=== PATIENT | male | born 1945 | race Caucasian/White ===

== ENCOUNTER → 2016-11-12 | Outpatient (CLI) | payer MEDICARE ==
--- NOTE | 2016-11-12 18:59 | PN ---
DATE OF SERVICE: 11/12/2016 71-year-old gentleman who has been [facility] for treatment of obstructive sleep apnea/hypopnea syndrome. Patient using his CPAP equipment every night without any problem like his mask. No snoring with the machine. [place] Sleepiness Scale is 6 which is normal. The patient brought his CPAP unit with him. I checked CPAP unit. CPAP pressure is 8 cm of water, humidity at the level of 6. Leak from the mask is up to 35 liters per minute. Apnea-hypopnea index reading is 2.8, which is normal. Usage is 100% of the time more than 4 hours. I checked the patient's nasal pillow mask and headgear and it looks loose to me. MEDICATIONS: Metformin, Glipizide, pioglitazone, ( ), Januvia, lorazepam, baby aspirin. PHYSICAL EXAMINATION: GENERAL: During physical exam, the patient in no distress. VITAL SIGNS: BP right arm 131/101, HR 84, RR 16, blood pressure left arm is 142/65. Height 5 feet 9-1/4, weight 224. BMI 33. Neck 17-1/2 inches in circumference. Temperature 97.5. HEENT: PERRLA, EOMI. Oropharynx extremely low position of soft palate. NECK: Supple. No JVD. Thyroid is not palpable. LUNGS: Clear to percussion and to auscultation. Good air exchange. No wheezing or rhonchi. HEART: S1, S2 regular. No murmurs, gallops, or rubs. ABDOMEN: Slightly obese. Soft and nontender. Bowel sounds are present. No organomegaly appreciated. EXTREMITIES: No clubbing or cyanosis. MUSIC PROMOTER: Awake, alert, and oriented x3. Cranial nerves 2 to 7 intact. There is no fasciculation or atrophy noted. No focal deficits observed. IMPRESSION: 1. Obstructive sleep apnea/hypopnea syndrome on full control with CPAP at the pressure of 8 cm of water. Patient demonstrated 100% compliance with treatment benefiting from treatment. 2. Patient needs new headgear for nasal pillows. 3. Diabetes mellitus. 4. Hypertension. 5. Obesity; patient lost weight down to 227 pounds. He lost about 20 pounds. 6. Status post nasal surgery about 5 years ago. 7. Status post right knee replacement. PLAN: 1. Patient will continue to use his CPAP therapy every night for the whole night. 2. Continue losing weight. 3. Sleep hygiene with regular time in bed for at least 8 hours. 4. Prescription for all necessary CPAP supplies. Patient needs to replace nasal pillow mask with headgear every 4 months at least. Thank you very much for allowing me to participate in the management of your patient. Sincerely, Matt Kidd MD, PhD, FAASM. Diplomat of [place] [employer], Sleep Medicine Board by [place] [employer] [place] [employer] Art Critic of [facility] [place]
== END | disposition home or self-care (01) ==
LOC: SLEEP 14:33
PROVIDERS: ATTEND Internal Medicine
DX: G47.33 Obstructive sleep apnea (adult) (pediatric) (principal); E11.9 Type 2 diabetes mellitus without complications; I10 Essential (primary) hypertension; E66.9 Obesity, unspecified; Z68.33 Body mass index [BMI] 33.0-33.9, adult; Z98.890 Other specified postprocedural states; Z96.651 Presence of right artificial knee joint; Z79.899 Other long term (current) drug therapy; Z79.84 Long term (current) use of oral hypoglycemic drugs; Z79.82 Long term (current) use of aspirin

== ENCOUNTER → 2017-05-03 | Outpatient (CLI) | payer MEDICARE ==
--- NOTE | 2017-05-03 15:22 | US ---
EXAMINATION TYPE: US carotid duplex BILAT DATE OF EXAM: 05/03/2017 COMPARISON: US 2011, Ct Brain 2009 CLINICAL HISTORY: 71-year-old male R42 Dizziness. TECHNIQUE: Carotid duplex ultrasound examination. Indirect Doppler criteria was utilized. FINDINGS: [place] scale images show mild atherosclerotic changes at the bifurcations. EXAM MEASUREMENTS: RIGHT: Peak Systolic Velocity (PSV) cm/sec ----- Right CCA: 57.2 ----- Right ICA: 47.7 ----- Right ECA: 79.8 ICA/CCA ratio: 0.8 RIGHT: End Diastole cm/sec ----- Right CCA: 0.0 ----- Right ICA: 0.0 ----- Right ECA: 9.9 LEFT: Peak Systolic Velocity (PSV) cm/sec ----- Left CCA: 46.8 ----- Left ICA: 86.0 ----- Left ECA: 67.7 ICA/CCA ratio: 1.8 LEFT: End Diastole cm/sec ----- Left CCA: 0.0 ----- Left ICA: 24.1 ----- Left ECA: 0.0 VERTEBRALS (direction of flow): Right Vertebral: Antegrade Left Vertebral: Antegrade Rhythm: Normal Senior Software Tester notes: Lower flow state and higher resistance waveform is noted in right ICA. IMPRESSION: No hemodynamically significant stenosis appreciated in either internal carotid artery. Criteria for Assigning % of Stenosis / Diameter reduction (Estimation based on the indirect measurements of the internal carotid artery velocities (ICA PSV). 1. Normal (no stenosis)=ICA PSV < 125 cm/s: ratio < 2.0: ICA EDV<40 cm/s. 2. Less than 50% stenosis=ICA PSV < 125 cm/s: ratio < 2.0: ICA EDV<40 cm/s. 3. 50 to 69% stenosis=ICA PSV of 125 to 230 cm/s: ration 2.0 ? 4.0: ICA EDV 40-100 cm/s. 4. Greater than 70% stenosis to near occlusion= ICA PSV > 230 cm/s: ratio > 4.0: ICA EDV > 100 cm/s. 5. Near occlusion= ICA PSV velocities may be low or undetectable: variable ratio and ICA EDV. 6. Total occlusion=unable to detect flow.
== END | disposition home or self-care (01) ==
LOC: RADUSWWP 12:18
PROVIDERS: ATTEND Internal Medicine Hematology & Oncology
DX: R42 Dizziness and giddiness (principal)
CPT/HCPCS: 93880

== ENCOUNTER 2021-12-23 21:29 | Emergency (ER) | payer MEDICARE ==
[2021-12-23 21:40] VITALS: TEMP 98.3
[2021-12-23] MEDS ORDERED: ONDANSETRON 4 MG/2 ML VIAL IVP STA (21:45)
[2021-12-23] MEDS ORDERED: SODIUM CHLORIDE 0.9% 1,000 ML IV STA ×2 (21:45→23:34)
[2021-12-23] MEDS ORDERED: diphenhydrAMINE 50 MG/ML 1 ML VIAL IVP STA (21:45)
--- NOTE | 2021-12-23 21:45 | ED ---
Dizziness HPI - General Chief Complaint: Dizziness Stated Complaint: Dizziness Time Seen by Provider: 12/23/21 21:36 Source: patient, RN notes reviewed, old records reviewed Mode of arrival: EMS Limitations: no limitations, altered mental status, physical limitation - History of Present Illness Initial Comments: This is a 76-year-old male to the emergency department for evaluation of dizziness lightheadedness weakness multiple mental status and not exactly feeling well. Patient was outside doing well right than normal today. He has no headache chest pain shortness of breath but he just feels increasingly weak. She had increase in the dizziness lightheadedness room spinning around at times. Patient felt off-balance MD Complaint: dizziness, lightheadedness, near syncope, difficulty walking -: hour(s) Timing: gradual onset Description: sense of movement, "room spinning", lightheadedness History of Same: Yes History of Trauma: No Severity: moderate Improves With: remaining still, rehydration, rest Worsens With: movement, exertion Associated Symptoms: shortness of breath, weakness - Related Data Home Medications Medication Instructions Recorded Confirmed Pioglitazone [Actos] 30 mg PO DAILY 05/21/16 12/24/21 Quinapril HCl [Accupril] 20 mg PO DAILY 05/21/16 12/24/21 glipiZIDE [Glucotrol] 10 mg PO BID 05/21/16 12/24/21 metFORMIN HCL [Glucophage] 1,000 mg PO BID 05/21/16 12/24/21 sitaGLIPtin [Januvia] 100 mg PO HS 05/21/16 12/24/21 LORazepam [Ativan] 1 mg PO DAILY PRN 05/28/17 12/24/21 FLUoxetine HCL 40 mg PO DAILY 12/23/21 12/24/21 HYDROcodone/APAP 5-325MG [[place] 1 tab PO Q6H PRN 12/23/21 12/24/21 5-325] Previous Rx's Medication Instructions Recorded Meclizine [Antivert] 25 mg PO TID PRN #12 tab 12/24/21 Metoclopramide HCl [Reglan] 10 mg PO Q6HR PRN #15 tablet 12/24/21 Allergies Allergy/AdvReac Type Severity Reaction Status Date / Time No Known Allergies Allergy Verified 12/24/21 11:56 Review of Systems ROS Statement: Those systems with pertinent positive or pertinent negative responses have been documented in the HPI. ROS Other: All systems not noted in ROS Statement are negative. Past Medical History Past Medical History: Diabetes Mellitus, Hypertension Additional Past Medical History / Comment(s): [place] History of Any Multi-Drug Resistant Organisms: None Reported Past Surgical History: Orthopedic Surgery Additional Past Surgical History / Comment(s): Bilateral knee replacement. Right knee replacement was approx 1 year ago. Past Anesthesia/Blood Transfusion Reactions: No Reported Reaction Past Psychological History: Anxiety, Depression Past Alcohol Use History: None Reported Past Drug Use History: None Reported - Past Family History Mother History Unknown: Yes Father History Unknown: Yes General Exam Limitations: no limitations General appearance: alert, in no apparent distress Head exam: Present: atraumatic, normocephalic, normal inspection Eye exam: Present: normal appearance, PERRL, EOMI. Absent: scleral icterus, conjunctival injection, periorbital swelling ENT exam: Present: normal exam, mucous membranes moist Neck exam: Present: normal inspection. Absent: tenderness, meningismus, lymphadenopathy Respiratory exam: Present: normal lung sounds bilaterally. Absent: respiratory distress, wheezes, rales, rhonchi, stridor Cardiovascular Exam: Present: regular rate, normal rhythm, normal heart sounds. Absent: systolic murmur, diastolic murmur, rubs, gallop, clicks GI/Abdominal exam: Present: soft, normal bowel sounds. Absent: distended, tenderness, guarding, rebound, rigid Extremities exam: Present: normal inspection, full ROM, normal capillary refill. Absent: tenderness, pedal edema, joint swelling, calf tenderness Back exam: Present: normal inspection Neurological exam: Present: alert, oriented X3, CN II-XII intact Psychiatric exam: Present: normal affect, normal mood Skin exam: Present: warm, dry, intact, normal color. Absent: rash Course Vital Signs 12/23/21 12/23/21 12/24/21 21:31 22:04 01:20 Temperature 98.3 F Pulse Rate 85 82 Respiratory 20 22 86 H Rate Blood Pressure 145/68 140/65 146/74 O2 Sat by Pulse 96 94 L 95 Oximetry - Reevaluation(s) Reevaluation #1: 12/23/21 Medical record is reviewed Reevaluation #2: 12/23/21 Patient symptoms resolved here in the ER, feeling improved Reevaluation #3: 12/23/21 Patient informed results and questions are answered EKG Findings - EKG Comments: EKG Findings:: EKG is sinus rhythm 89 NE 211 QRS 104 QTc 413 Medical Decision Making - Medical Decision Making 76 male who presents to the emergency department for not feeling well likely dehydration from overwork, states patient's been not acting appropriately lately at times, patient is awake and alert currently acting normal for now. Patient has no findings here in the ER and can be discharged home - Lab Data Result diagrams: 12/23/21 22:06 12/23/21 22:06 Lab Results 12/23/21 12/23/21 12/23/21 Range/Units 22:06 22:06 22:06 WBC 11.6 H (3.8-10.6) k/uL RBC 4.37 (4.30-5.90) m/uL Hgb 12.8 L (13.0-17.5) gm/dL Hct 40.9 (39.0-53.0) % MCV 93.6 (80.0-100.0) fL MCH 29.3 (25.0-35.0) pg MCHC 31.3 (31.0-37.0) g/dL RDW 14.2 (11.5-15.5) % Plt Count 228 (150-450) k/uL MPV 8.1 Neutrophils % 84 % Lymphocytes % 8 % Monocytes % 6 % Eosinophils % 1 % Basophils % 0 % Neutrophils # 9.7 H (1.3-7.7) k/uL Lymphocytes # 0.9 L (1.0-4.8) k/uL Monocytes # 0.6 (0-1.0) k/uL Eosinophils # 0.1 (0-0.7) k/uL Basophils # 0.0 (0-0.2) k/uL Sodium 135 L (137-145) mmol/L Potassium 4.3 (3.5-5.1) mmol/L Chloride 104 (98-107) mmol/L Carbon Dioxide 20 L (22-30) mmol/L Anion Gap 11 mmol/L BUN 17 (9-20) mg/dL Creatinine 0.82 (0.66-1.25) mg/dL Est GFR (CKD-EPI)AfAm >90 (>60 ml/min/1.73 sqM) Est GFR (CKD-EPI)NonAf 85 (>60 ml/min/1.73 sqM) Glucose 202 H (74-99) mg/dL Calcium 9.2 (8.4-10.2) mg/dL Phosphorus 2.9 (2.5-4.5) mg/dL Magnesium 1.7 (1.6-2.3) mg/dL Total Bilirubin 0.3 (0.2-1.3) mg/dL AST 27 (17-59) U/L ALT 23 (4-49) U/L Alkaline Phosphatase 63 (38-126) U/L Troponin I <0.012 (0.000-0.034) ng/mL Total Protein 6.8 (6.3-8.2) g/dL Albumin 4.0 (3.5-5.0) g/dL - Radiology Data Radiology results: report reviewed (CT brain negative for acute disease), image reviewed Disposition Clinical Impression: Dehydration, Weakness Disposition: HOME SELF-CARE Condition: Good Instructions (If sedation given, give patient instructions): Weakness (ED) Is patient prescribed a controlled substance at d/c from ED?: No Referrals: Francesco Lance MD [Primary Care Provider] - 1-2 days Time of Disposition: 23:55
[2021-12-23 22:07] VITALS: PULSE 82
[2021-12-23 22:09] LABS: Basophils % (A) 0 %; Eosinophils # (A) 0.1 k/uL (0-0.7); Eosinophils % (A) 1 %; HCT 40.9 % (39.0-53.0); HGB 12.8 gm/dL (13.0-17.5); Lymphocytes # (A) 0.9 k/uL (1.0-4.8); Lymphocytes % (A) 8 %; MCH 29.3 pg (25.0-35.0); MCHC 31.3 g/dL (31.0-37.0); MCV 93.6 fL (80.0-100.0); Mean Platelet Volume 8.1; Monocytes # (A) 0.6 k/uL (0-1.0); Monocytes % (A) 6 %; Neutrophils # (A) 9.7 k/uL (1.3-7.7); Neutrophils % (A) 84 %; Platelet Count 228 k/uL (150-450); RBC 4.37 m/uL (4.30-5.90); RDW 14.2 % (11.5-15.5); WBC 11.6 k/uL (3.8-10.6)
[2021-12-23 22:31] LABS: Potassium 4.3 mmol/L (3.5-5.1)
[2021-12-23 22:32] LABS: ALT 23 U/L (4-49); AST 27 U/L (17-59); African American GFR (CKD) >90 (>60 ml/min/1.73 sqM); Alkaline Phosphatase 63 U/L (38-126); Anion Gap 11 mmol/L; Blood Urea Nitrogen 17 mg/dL (9-20); Calcium 9.2 mg/dL (8.4-10.2); Carbon Dioxide 20 mmol/L (22-30); Chloride 104 mmol/L (98-107); Glucose 202 mg/dL (74-99); Magnesium 1.7 mg/dL (1.6-2.3); Non-African American GFR(CKD) 85 (>60 ml/min/1.73 sqM); Phosphorus 2.9 mg/dL (2.5-4.5); Sodium 135 mmol/L (137-145); Total Bilirubin 0.3 mg/dL (0.2-1.3); Total Protein 6.8 g/dL (6.3-8.2)
--- NOTE | 2021-12-23 22:55 | CT ---
EXAMINATION TYPE: CT brain wo con DATE OF EXAM: 12/23/2021 COMPARISON: 05/23/2010 HISTORY: weakness and fall. CT DLP: 1123.4 mGycm Automated exposure control for dose reduction was used. There is diffuse cerebral cortical atrophy. There is 1.5 cm old lacunar infarct in the left caudate n ucleus. There is extensive mucosal thickening in the maxillary sinuses. There is mucosal thickening a lso in the ethmoid sinuses. Calvarium is intact. IMPRESSION: Cerebral atrophy. 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 Ethmoid and maxillary sinusitis is increased compared to old exam. Cerebral atrophy is increased comp ared to old exam.
[2021-12-24 01:22] VITALS: BP 146/74; RESP 86
== END 2021-12-24 01:22 | disposition home or self-care (01) ==
LOC: EC 21:29
DX: E86.0 Dehydration (principal); R53.1 Weakness; E11.9 Type 2 diabetes mellitus without complications; I10 Essential (primary) hypertension
CPT/HCPCS: 36415; 93005; 80053; 83735; 84100; 84484; 85025; 70450; 99285; 96374; 96375; 96361; J1200; J2405

== ENCOUNTER 2021-12-24 10:39 | Emergency (ER) | payer MEDICARE ==
[2021-12-24 11:22] VITALS: RESP 14
[2021-12-24] MEDS ORDERED: METOCLOPRAMIDE 5 MG/ML 2 ML VIAL IVP STA (11:48)
[2021-12-24] MEDS ORDERED: MECLIZINE 12.5 MG TAB PO STA (11:48)
--- NOTE | 2021-12-24 11:52 | ED ---
General Adult HPI - General Chief complaint: Weakness Stated complaint: Revisit/Dizziness Time Seen by Provider: 12/24/21 11:15 Source: patient, family, RN notes reviewed Mode of arrival: ambulatory Limitations: no limitations - History of Present Illness Initial comments: Patient is a pleasant 76-year-old male presenting to the emergency department with concerns with dizziness. Patient had similar symptoms yesterday afternoon. Patient came to the emergency department yesterday. Patient does not believe he was given medicines however did feel better and went home. Patient woke up this morning and when he got out of bed had similar symptoms. Patient felt dizzy, described like a spinning type sensation. Patient did fall down. No injury. Patient currently is symptom-free while lying in bed. Patient did not have symptoms in route to the hospital. No confusion. No speech problems. Other than this episode there is been no history of balance problems. No extremity weakness. No visual changes. - Related Data Home Medications Medication Instructions Recorded Confirmed Pioglitazone [Actos] 30 mg PO DAILY 05/21/16 12/24/21 Quinapril HCl [Accupril] 20 mg PO DAILY 05/21/16 12/24/21 glipiZIDE [Glucotrol] 10 mg PO BID 05/21/16 12/24/21 metFORMIN HCL [Glucophage] 1,000 mg PO BID 05/21/16 12/24/21 sitaGLIPtin [Januvia] 100 mg PO HS 05/21/16 12/24/21 LORazepam [Ativan] 1 mg PO DAILY PRN 05/28/17 12/24/21 FLUoxetine HCL 40 mg PO DAILY 12/23/21 12/24/21 HYDROcodone/APAP 5-325MG [[place] 1 tab PO Q6H PRN 12/23/21 12/24/21 5-325] Previous Rx's Medication Instructions Recorded Meclizine [Antivert] 25 mg PO TID PRN #12 tab 12/24/21 Metoclopramide HCl [Reglan] 10 mg PO Q6HR PRN #15 tablet 12/24/21 Allergies Allergy/AdvReac Type Severity Reaction Status Date / Time No Known Allergies Allergy Verified 12/24/21 11:56 Review of Systems ROS Statement: Those systems with pertinent positive or pertinent negative responses have been documented in the HPI. ROS Other: All systems not noted in ROS Statement are negative. Constitutional: Denies: fever Eyes: Denies: eye pain ENT: Denies: ear pain Respiratory: Denies: cough Cardiovascular: Denies: chest pain Endocrine: Denies: fatigue Gastrointestinal: Denies: abdominal pain Genitourinary: Denies: dysuria Musculoskeletal: Denies: back pain Skin: Denies: rash Neurological: Reports: as per HPI, vertigo. Denies: headache, weakness, numbness, paresthesias, confusion Past Medical History Past Medical History: Diabetes Mellitus, Hypertension Additional Past Medical History / Comment(s): [place] History of Any Multi-Drug Resistant Organisms: None Reported Past Surgical History: Orthopedic Surgery Additional Past Surgical History / Comment(s): Bilateral knee replacement. Right knee replacement was approx 1 year ago. Past Anesthesia/Blood Transfusion Reactions: No Reported Reaction Past Psychological History: Anxiety, Depression Smoking Status: Never smoker Past Alcohol Use History: None Reported Past Drug Use History: None Reported - Past Family History Mother History Unknown: Yes Father History Unknown: Yes General Exam Limitations: no limitations General appearance: alert, in no apparent distress Head exam: Present: atraumatic, normocephalic Eye exam: Present: normal appearance, PERRL, EOMI ENT exam: Present: normal oropharynx Neck exam: Present: normal inspection. Absent: tenderness Respiratory exam: Present: normal lung sounds bilaterally Cardiovascular Exam: Present: regular rate, normal rhythm GI/Abdominal exam: Present: soft. Absent: tenderness Extremities exam: Present: normal inspection, full ROM. Absent: tenderness Neurological exam: Present: alert, CN II-XII intact. Absent: motor sensory deficit Expanded Neurological exam: Present: protecting the airway Patient oriented to: Present: person, place, time Speech: Present: fluid speech Cranial nerves: EOM's Intact: Normal, Facial Sensation: Normal Cerebellar function: Finger to Nose: Normal Sensory exam: Upper Extremity Light Touch: Normal, Lower Extremity Light Touch: Normal Motor strength exam: RUE: 5, LUE: 5, RLE: 5, LLE: 5 Eye Response: (4) open spontaneously Motor Response: (6) obeys commands Verbal Response: (5) oriented Psychiatric exam: Present: normal affect, normal mood Skin exam: Present: normal color Course Vital Signs 12/24/21 12/24/21 12/24/21 10:43 11:14 11:22 Temperature 98.3 F 98.0 F Pulse Rate 78 86 84 Respiratory 20 14 14 Rate Blood Pressure 133/64 134/66 134/66 O2 Sat by Pulse 96 97 96 Oximetry 12/24/21 12/24/21 12/24/21 12:10 14:37 14:41 Temperature 98 F Pulse Rate 78 82 Respiratory 14 14 Rate Blood Pressure 159/72 136/66 140/70 O2 Sat by Pulse 97 93 L Oximetry 12/24/21 14:44 Temperature Pulse Rate Respiratory Rate Blood Pressure 139/67 O2 Sat by Pulse Oximetry EKG Findings - EKG Comments: EKG Findings:: Sinus rhythm with rate of 80. For screening AV block with a SC of 223. QRS 95. QT 366. QTc 41. Normal axis. Incomplete right bundle branch block. No acute ST change. Medical Decision Making - Medical Decision Making Patient reevaluated and feeling much better. Patient was able to get up and and really without difficulty. Patient and family updated on results and need for follow-up. - Lab Data Result diagrams: 12/24/21 11:56 12/24/21 11:56 Lab Results 12/24/21 12/24/21 12/24/21 Range/Units 11:56 11:56 11:56 WBC 7.5 (3.8-10.6) k/uL RBC 4.58 (4.30-5.90) m/uL Hgb 13.3 (13.0-17.5) gm/dL Hct 43.4 (39.0-53.0) % MCV 94.7 (80.0-100.0) fL MCH 29.1 (25.0-35.0) pg MCHC 30.7 L (31.0-37.0) g/dL RDW 14.4 (11.5-15.5) % Plt Count 247 (150-450) k/uL MPV 8.1 Neutrophils % 71 % Lymphocytes % 19 % Monocytes % 7 % Eosinophils % 2 % Basophils % 1 % Neutrophils # 5.3 (1.3-7.7) k/uL Lymphocytes # 1.4 (1.0-4.8) k/uL Monocytes # 0.5 (0-1.0) k/uL Eosinophils # 0.1 (0-0.7) k/uL Basophils # 0.0 (0-0.2) k/uL PT 10.2 (9.0-12.0) sec INR 0.9 (<1.2) APTT 22.1 (22.0-30.0) sec Sodium 140 (137-145) mmol/L Potassium 5.1 (3.5-5.1) mmol/L Chloride 105 (98-107) mmol/L Carbon Dioxide 26 (22-30) mmol/L Anion Gap 9 mmol/L BUN 15 (9-20) mg/dL Creatinine 0.97 (0.66-1.25) mg/dL Est GFR (CKD-EPI)AfAm 87 (>60 ml/min/1.73 sqM) Est GFR (CKD-EPI)NonAf 75 (>60 ml/min/1.73 sqM) Glucose 202 H (74-99) mg/dL Calcium 9.1 (8.4-10.2) mg/dL Total Bilirubin 0.3 (0.2-1.3) mg/dL AST 27 (17-59) U/L ALT 23 (4-49) U/L Alkaline Phosphatase 56 (38-126) U/L Total Protein 6.8 (6.3-8.2) g/dL Albumin 4.0 (3.5-5.0) g/dL - Radiology Data Radiology results: report reviewed (Computed tomography scan angios of the brain and neck reveal no acute abnormality), image reviewed (Chest x-ray shows no acute process) Disposition Clinical Impression: Vertigo Disposition: HOME SELF-CARE Condition: Stable Instructions (If sedation given, give patient instructions): Vertigo (ED) Additional Instructions: Please follow-up with primary care physician in the next day or 2 for recheck. Prescription for medications has been sent here pharmacy. Please follow-up also with neurology and ENT, number provided. Return for increased dizziness, falling, weakness or confusion, worsening or change in symptoms or other concerns. Prescriptions: Meclizine [Antivert] 25 mg PO TID PRN #12 tab PRN Reason: dizziness Metoclopramide HCl [Reglan] 10 mg PO Q6HR PRN #15 tablet PRN Reason: Nausea Is patient prescribed a controlled substance at d/c from ED?: No Referrals: Francesco Lance MD [Primary Care Provider] - 1-2 days Time of Disposition: 15:00
[2021-12-24 12:11] VITALS: TEMP 98
[2021-12-24 12:12] LABS: Basophils % (A) 1 %; Eosinophils # (A) 0.1 k/uL (0-0.7); Eosinophils % (A) 2 %; HCT 43.4 % (39.0-53.0); HGB 13.3 gm/dL (13.0-17.5); Lymphocytes # (A) 1.4 k/uL (1.0-4.8); Lymphocytes % (A) 19 %; MCH 29.1 pg (25.0-35.0); MCHC 30.7 g/dL (31.0-37.0); MCV 94.7 fL (80.0-100.0); Mean Platelet Volume 8.1; Monocytes # (A) 0.5 k/uL (0-1.0); Monocytes % (A) 7 %; Neutrophils # (A) 5.3 k/uL (1.3-7.7); Neutrophils % (A) 71 %; Platelet Count 247 k/uL (150-450); RBC 4.58 m/uL (4.30-5.90); RDW 14.4 % (11.5-15.5); WBC 7.5 k/uL (3.8-10.6)
[2021-12-24 12:27] LABS: Calcium 9.1 mg/dL (8.4-10.2); Potassium 5.1 mmol/L (3.5-5.1); Total Bilirubin 0.3 mg/dL (0.2-1.3); Total Protein 6.8 g/dL (6.3-8.2)
[2021-12-24 12:29] LABS: INR 0.9 (<1.2); Partial Thromboplastin Time 22.1 sec (22.0-30.0); Prothrombin Time 10.2 sec (9.0-12.0)
--- NOTE | 2021-12-24 13:00 | XR ---
EXAMINATION TYPE: XR chest 2V DATE OF EXAM: 12/24/2021 COMPARISON: 05/28/2010 TECHNIQUE: PA and lateral views submitted. HISTORY: Weakness FINDINGS: The lungs are clear and there is no pneumothorax, pleural effusion, or focal pneumonia. Diffuse ost eopenia and arthropathy of the shoulders. Heart prominent sized. Atherosclerotic change aorta. No ove rt failure. Hyperinflation suggests COPD. Hypertrophic and degenerative change of the spine. IMPRESSION: 1. No acute process. Correlate for COPD.
--- NOTE | 2021-12-24 13:24 | CT ---
EXAMINATION TYPE: CT angio head neck DATE OF EXAM: 12/24/2021 HISTORY: Dizziness COMPARISON: CT DLP: 916.4 mGycm. Automated Exposure Control for Dose Reduction was Utilized. TECHNIQUE: CTA scan of the neck is performed with IV Contrast, patient injected with 65 mL of Isovue 370, axial images are obtained, coronal and sagittal reformatted images are reviewed. Three-D recons tructed images are created on an independent workstation and reviewed. Source images are reviewed. FINDINGS: Carotid/Vascular Structures: There is a three-vessel arch. Vertebral arteries are codominant. Mild at heromatous plaque is at the carotid bifurcations. No significant flow-limiting stenosis is evident. S ome stenosis of the origin of the left external carotid artery is not excluded. Internal carotid tana karoline are patent to the skull base. Cervical of [place]: Vertebral basilar system appears normal. Posterior cerebral vasculature is unrema rkable. The right A1 segment is aplastic. Left A1 segment is normal. Anterior communicating artery is patent. A 2 segments are normal. Middle cerebral artery branches are unremarkable. Right posterior c ommunicating artery is patent. Left posterior communicating artery is not identified. IMPRESSION: 1. No flow-limiting stenosis bilateral carotid bifurcations. 2. Normal variation [place] NASCET criteria was used in interpretation of this exam?
[2021-12-24 14:43] VITALS: PULSE 82
[2021-12-24 14:59] VITALS: BP 137/68
== END 2021-12-24 16:18 | disposition home or self-care (01) ==
LOC: EC 10:39
DX: R42 Dizziness and giddiness (principal); E11.9 Type 2 diabetes mellitus without complications; I10 Essential (primary) hypertension
CPT/HCPCS: 36415; 80053; 85025; 85610; 85730; 71046; 70496; 70498; 99285; 96374; J2765; Q9967

== ENCOUNTER → 2022-04-17 | Outpatient (CLI) | payer MEDICARE ==
--- NOTE | 2022-04-17 13:07 | XR ---
EXAMINATION TYPE: XR clavicle RT DATE OF EXAM: 04/17/2022 1:00 PM INDICATION: Patient age:Male; 76 years old; Reason for study: M25.5 PAIN IN RIGHT CLAVICLE; PHH. COMPARISON: Chest radiograph 12/24/2021. TECHNIQUE: AP and cephalic tilt views were obtained of the right clavicle. FINDINGS: Nondisplaced oblique fracture of the proximal clavicle. Hypertrophic changes of the AC joint. No disl ocation. Visualized lung is clear. IMPRESSION: Acute nondisplaced fracture of the proximal right clavicle.
== END | disposition home or self-care (01) ==
LOC: RADXRMAIN 12:42
PROVIDERS: ATTEND Internal Medicine
DX: S42.034A Nondisplaced fracture of lateral end of right clavicle, initial encounter for closed fracture (principal); X58.XXXA Exposure to other specified factors, initial encounter

== ENCOUNTER 2022-04-21 15:13 | Observation (INO) | payer MEDICARE ==
[2022-04-21] MEDS ORDERED: LORazepam 2 MG/ML INJ IV STA ×2 (17:19→22:04)
[2022-04-21] MEDS ORDERED: SODIUM CHLORIDE 0.9% 500 ML 500 ML IV STA (17:19)
[2022-04-21 17:52] LABS: Basophils % (A) 0 %; Eosinophils # (A) 0.1 k/uL (0-0.7); Eosinophils % (A) 1 %; HCT 40.8 % (39.0-53.0); HGB 13.8 gm/dL (13.0-17.5); Lymphocytes # (A) 1.4 k/uL (1.0-4.8); Lymphocytes % (A) 20 %; MCH 29.6 pg (25.0-35.0); MCHC 33.8 g/dL (31.0-37.0); MCV 87.6 fL (80.0-100.0); Mean Platelet Volume 8.7; Monocytes # (A) 0.5 k/uL (0-1.0); Monocytes % (A) 7 %; Neutrophils # (A) 4.6 k/uL (1.3-7.7); Neutrophils % (A) 69 %; Platelet Count 279 k/uL (150-450); RBC 4.65 m/uL (4.30-5.90); RDW 14.1 % (11.5-15.5); WBC 6.7 k/uL (3.8-10.6)
[2022-04-21 18:06] LABS: African American GFR (CKD) >90 (>60 ml/min/1.73 sqM); Alcohol <10 mg/dL; Anion Gap 15 mmol/L; Blood Urea Nitrogen 20 mg/dL (9-20); Calcium 9.7 mg/dL (8.4-10.2); Carbon Dioxide 18 mmol/L (22-30); Chloride 103 mmol/L (98-107); Glucose 136 mg/dL (74-99); Non-African American GFR(CKD) >90 (>60 ml/min/1.73 sqM); Potassium 4.3 mmol/L (3.5-5.1); Sodium 136 mmol/L (137-145)
--- NOTE | 2022-04-21 18:26 | ED ---
General Adult HPI - General Chief complaint: Psychiatric Symptoms Stated complaint: Mental Health Time Seen by Provider: 04/21/22 16:49 Source: patient, RN notes reviewed, old records reviewed Mode of arrival: ambulatory Limitations: no limitations - History of Present Illness Initial comments: Patient is a 76-year-old male with past history remarkable for diabetes, hypertension, anxiety who presents emergency Department after he brought in by his for mental health evaluation. He has required admission in the past. Patient states he wants to admit himself to 3 [address]. and hurt himself. He is concerned he may hurt himself. Denies homicidal ideations, attempts, plans. Denies any suicidal plans or attempts. Has had thoughts. Denies hallucina tions. Has been taking increased numbers of his Ativan. His normal 3 month supply of 1mg tabs Ativan is almost gone after 2-1/2 months. Denies any large increases but does endorse taking 1 or 2 extra tablets a day occasionally. States it does help but he doesn't to be more lately. Denies any worsening stressors. His no other acute complaints at this time. Does have a recent fall with a collarbone injury. Is on pain medications for that. Denies any overdose or pain meds. Has no other acute complaints at this time. Denies drinking or drug use. Presents for further evaluation and mental health evaluation. - Related Data Home Medications Medication Instructions Recorded Confirmed Pioglitazone [Actos] 30 mg PO DAILY 05/21/16 04/21/22 Quinapril HCl [Accupril] 20 mg PO HS 05/21/16 04/21/22 metFORMIN HCL [Glucophage] 1,000 mg PO BID 05/21/16 04/21/22 sitaGLIPtin [Januvia] 100 mg PO HS 05/21/16 04/21/22 LORazepam [Ativan] 1 dose PO ONCE PRN 05/28/17 04/21/22 FLUoxetine HCL 40 mg PO DAILY 12/23/21 04/21/22 HYDROcodone/APAP 5-325MG [[place] 1 tab PO Q6H PRN 12/23/21 04/21/22 5-325] ALPRAZolam [Xanax] 0.5 mg PO Q6H PRN 04/21/22 04/21/22 Albuterol Inhaler [Ventolin Hfa 1 - 2 puff INHALATION RT-Q6H PRN 04/21/22 04/21/22 Inhaler] glipiZIDE XL [Glucotrol Xl] 10 mg PO BID 04/21/22 04/21/22 Allergies Allergy/AdvReac Type Severity Reaction Status Date / Time No Known Allergies Allergy Verified 04/21/22 20:10 Review of Systems ROS Statement: Those systems with pertinent positive or pertinent negative responses have been documented in the HPI. Review of Systems: CONST: Denies fever EYES: Denies blurry vision ENT: Denies nasal congestion C/V: Denies Chest pain RESP: Denies shortness of breath GI: Denies abdominal pain : Denies dysuria SKIN: Denies rash. MSK: Denies joint pain. NEURO: Denies headache PSYCH: Denies homicidal ideations/plans/attempts. Denies visual or auditory hallucinations. He endorses suicidal ideations. Denies plans or attempts. ROS Other: All systems not noted in ROS Statement are negative. Past Medical History Past Medical History: Diabetes Mellitus, Hypertension Additional Past Medical History / Comment(s): [facility] History of Any Multi-Drug Resistant Organisms: None Reported Past Surgical History: Orthopedic Surgery Additional Past Surgical History / Comment(s): Bilateral knee replacement. Right knee replacement was approx 1 year ago. Past Anesthesia/Blood Transfusion Reactions: No Reported Reaction Past Psychological History: Anxiety, Depression Smoking Status: Former smoker Past Alcohol Use History: None Reported Past Drug Use History: None Reported - Past Family History Mother History Unknown: Yes Father History Unknown: Yes General Exam - General Exam Comments Initial Comments: General: Appears anxious. HEAD: Normal with no signs of head trauma. EYES: PERRLA, EOMI, conjunctiva normal, no discharge. Pupils 2 mm and equal bilaterally. ENT: Hearing grossly intact, normal oropharynx. RESPIRATORY: Clear breath sounds bilaterally. No wheezes, rales, or rhonchi. C/V: Regular rate and rhythm. S1 and S2 auscultated, no edema, peripheral pulses 2+ and intact throughout ABD: Abd is soft, nontender, nondistended EXT: Normal range of motion, no obvious deformity SKIN: Bruising over the right collarbone where there is a known clavicle fracture. NEURO: Alert and oriented 4. No focal deficits. Limitations: no limitations Course Vital Signs 04/21/22 16:31 Temperature 98 F Pulse Rate 92 Respiratory 18 Rate Blood Pressure 158/84 O2 Sat by Pulse 96 Oximetry Medical Decision Making - Medical Decision Making Based on the patient's presentation and physical exam, I do believe he requires psychiatric evaluation. He was placed in green scrubs. Suicide precautions were placed. Sitter was ordered. We will obtain basic screening laboratory studies with his history of diabetes. This includes a screening EKG. He was in agreement this plan. He will be given a small fluid bolus as well as IV Ativan. Patient was in agreement this plan. Vital signs within normal limits. EKG shows no signs of acute ischemia. Laboratory studies are remarkable for a slightly decreased, no exudates in which is likely secondary to hyperventilation, as he is anxious revealing critically bedside. No signs of DKA. Patient is minimally hyperglycemic 136. Alcohol is undetectable. UDS is pending. At this time patient is medically cleared for evaluation by psychiatry. Di sposition is pending psychiatric evaluation.Psych evaluated the patient. Determined that he does meet inpatient criteria. However patient did test positive for Covid. Therefore patient will be admitted to medicine observation and have psych consulted. Sitter was ordered. Suicide precautions were ordered. After the patient and was in agreement this plan. Dr. Ramirezs was consulted. I spoke with the admitting physician, observation on-call Dr. Giron who accepted the patient. Patient was admitted in stable condition. All home medications were ordered. - Lab Data Result diagrams: 04/21/22 17:45 04/21/22 17:45 Lab Results 04/21/22 04/21/22 04/21/22 Range/Units 17:45 17:45 21:24 WBC 6.7 (3.8-10.6) k/uL RBC 4.65 (4.30-5.90) m/uL Hgb 13.8 (13.0-17.5) gm/dL Hct 40.8 (39.0-53.0) % MCV 87.6 (80.0-100.0) fL MCH 29.6 (25.0-35.0) pg MCHC 33.8 (31.0-37.0) g/dL RDW 14.1 (11.5-15.5) % Plt Count 279 (150-450) k/uL MPV 8.7 Neutrophils % 69 % Lymphocytes % 20 % Monocytes % 7 % Eosinophils % 1 % Basophils % 0 % Neutrophils # 4.6 (1.3-7.7) k/uL Lymphocytes # 1.4 (1.0-4.8) k/uL Monocytes # 0.5 (0-1.0) k/uL Eosinophils # 0.1 (0-0.7) k/uL Basophils # 0.0 (0-0.2) k/uL Sodium 136 L (137-145) mmol/L Potassium 4.3 (3.5-5.1) mmol/L Chloride 103 (98-107) mmol/L Carbon Dioxide 18 L (22-30) mmol/L Anion Gap 15 mmol/L BUN 20 (9-20) mg/dL Creatinine 0.69 (0.66-1.25) mg/dL Est GFR (CKD-EPI)AfAm >90 (>60 ml/min/1.73 sqM) Est GFR (CKD-EPI)NonAf >90 (>60 ml/min/1.73 sqM) Glucose 136 H (74-99) mg/dL Calcium 9.7 (8.4-10.2) mg/dL Serum Alcohol <10 mg/dL Coronavirus (PCR) Detected A (Not Detectd) - EKG Data -: EKG Interpreted by Me EKG Comments: 12-lead Electrocardiogram Interpretation Note EKG was reviewed and interpreted by myself. 12-lead ECG performed at 1745 is interpreted by me as revealing normal sinus rhythm at a rate of 81 beats per minute. [place] is normal. CA interval is 197 ms, QRS durations 100 ms, QTc is 428 ms.. There were no ST or T wave abnormalities to suggest myocardial ischemia or injury. R wave progression across the precordium was satisfactory. By my interpretation this EKG is non-diagnostic for acute ischemia. Disposition Clinical Impression: COVID-19, Suicidal behavior, Encounter for psychiatric assessment Disposition: ADMITTED IP TO THIS HOSP Condition: Stable Referrals: Francesco Lance MD [Primary Care Provider] - 1-2 days Time of Disposition: 22:50
[2022-04-21] MEDS ORDERED: NALOXONE 0.4 MG/ML 1 ML VIAL IV PRN (23:18)
[2022-04-21] MEDS: HYDROcodone/APAP 5-325MG 1 EACH TAB PO PRN (23:22)
[2022-04-21] MEDS: ALPRAZolam 0.5 MG TAB PO PRN (23:22)
[2022-04-22] MEDS ORDERED: ALBUTEROL HFA INHALER INHALATION PRN (02:00)
--- NOTE | 2022-04-22 04:33 | P.HPIM ---
History of Present Illness H&P Date: 04/22/22 The patient is a 76-year-old male with a PMH of type II DM and asthma who presented to the emergency room with complaints of depression with suicidal ideation. The patient reports that he has a history of depression and was planning on shooting himself due to worsening suicidal ideation. He denies any specific triggers and his life. Reports a recent fall and clavicular injury as a result. Does report pain with specific movements of the right upper extremity. Denies any additional discomfort. Denies chest discomfort, shortness of breath, nausea, vomiting, abdominal pain, diarrhea. In the emergency room, the patient did test positive for coronavirus. The patient denied cough, fever, chills, chest pain, shortness of breath. Review of systems: Pertinent positives and negatives as discussed in HPI, a complete review of systems was performed and all other systems are negative. Physical examination: General: non toxic, no distress, appears at stated age, overweight Derm: no unusual rashes/lesions, warm Head: atraumatic, normocephalic, symmetric Eyes: EOMI, no lid lag, anicteric sclera, pupils equal round reactive to light ENT: Nose and ears atraumatic Neck: No cervical lymphadenopathy, trachea midline, supple Mouth: no lip lesion, mucus membranes moist Cardiovascular: S1S2 reg, no murmur, positive dorsalis pedis pulse bilateral, no edema Lungs: CTA bilateral, no rhonchi, no rales, no accessory muscle use Abdominal: soft, nontender to palpation, no guarding Ext: Right clavicular tenderness with minimal limitation to right upper extremity range of motion, muscle strength 5 out of 5 in all 4 extremities grossly, no gross muscle atrophy, no contractures, Neuro: CN II-XI grossly intact, no gross focal neuro deficits Psych: Alert, oriented, appropriate affect Assessment/plan Coronavirus testing positive, patient is symptomatic -Hold off on any intervention at this time as likely incidental finding Depression with suicidal ideation -Psychiatry consult -Suicide precautions Chronic conditions: Type II DM, asthma -Hold oral hypoglycemics -Continue with home medications -Insulin sliding scale DVT prophylaxis -Heparin subq The patient is admitted with an anticipated less than 2 midnight stay for evaluation of depression CODE STATUS: Full Code Discussed with: Patient Anticipated discharge date: in am Anticipated discharge place: Home Past Medical History Past Medical History: Diabetes Mellitus, Hypertension Additional Past Medical History / Comment(s): [facility] History of Any Multi-Drug Resistant Organisms: None Reported Past Surgical History: Orthopedic Surgery Additional Past Surgical History / Comment(s): Bilateral knee replacement. Right knee replacement was approx 1 year ago. Past Anesthesia/Blood Transfusion Reactions: No Reported Reaction Past Psychological History: Anxiety, Depression Smoking Status: Former smoker Past Alcohol Use History: None Reported Past Drug Use History: None Reported - Past Family History Mother History Unknown: Yes Father History Unknown: Yes Family Medical History: Cancer Medications and Allergies Home Medications Medication Instructions Recorded Confirmed Type Pioglitazone [Actos] 30 mg PO DAILY 05/21/16 04/21/22 History Quinapril HCl [Accupril] 20 mg PO HS 05/21/16 04/21/22 History metFORMIN HCL [Glucophage] 1,000 mg PO BID 05/21/16 04/21/22 History sitaGLIPtin [Januvia] 100 mg PO HS 05/21/16 04/21/22 History LORazepam [Ativan] 1 dose PO ONCE PRN 05/28/17 04/21/22 History FLUoxetine HCL 40 mg PO DAILY 12/23/21 04/21/22 History HYDROcodone/APAP 5-325MG [[place] 1 tab PO Q6H PRN 12/23/21 04/21/22 History 5-325] ALPRAZolam [Xanax] 0.5 mg PO Q6H PRN 04/21/22 04/21/22 History Albuterol Inhaler [Ventolin Hfa 1 - 2 puff INHALATION RT-Q6H PRN 04/21/22 04/21/22 History Inhaler] glipiZIDE XL [Glucotrol Xl] 10 mg PO BID 04/21/22 04/21/22 History Allergies Allergy/AdvReac Type Severity Reaction Status Date / Time No Known Allergies Allergy Verified 04/21/22 20:10 Physical Exam Vitals: Vital Signs Temp Pulse Resp BP Pulse Ox 04/21/22 16:31 98 F 92 18 158/84 96 Intake and Output 04/21/22 04/21/22 04/22/22 14:59 22:59 06:59 Other: Weight 99.79 kg Results CBC & Chem 7: 04/21/22 17:45 04/21/22 17:45 Labs: Abnormal Lab Results - Last 24 Hours (Table) 04/21/22 04/21/22 Range/Units 17:45 21:24 Sodium 136 L (137-145) mmol/L Carbon Dioxide 18 L (22-30) mmol/L Glucose 136 H (74-99) mg/dL Coronavirus (PCR) Detected A (Not Detectd)
[2022-04-22 06:06] LABS: Basophils % (A) 0 %; Eosinophils # (A) 0.2 k/uL (0-0.7); Eosinophils % (A) 2 %; HCT 40.6 % (39.0-53.0); HGB 13.1 gm/dL (13.0-17.5); Lymphocytes # (A) 1.4 k/uL (1.0-4.8); Lymphocytes % (A) 22 %; MCH 29.1 pg (25.0-35.0); MCHC 32.2 g/dL (31.0-37.0); MCV 90.3 fL (80.0-100.0); Mean Platelet Volume 8.9; Monocytes # (A) 0.8 k/uL (0-1.0); Monocytes % (A) 12 %; Neutrophils # (A) 3.9 k/uL (1.3-7.7); Neutrophils % (A) 61 %; Platelet Count 263 k/uL (150-450); RBC 4.49 m/uL (4.30-5.90); RDW 14.1 % (11.5-15.5); WBC 6.5 k/uL (3.8-10.6)
[2022-04-22 06:07] LABS: African American GFR (CKD) >90 (>60 ml/min/1.73 sqM); Anion Gap 11 mmol/L; Blood Urea Nitrogen 19 mg/dL (9-20); Calcium 8.9 mg/dL (8.4-10.2); Carbon Dioxide 22 mmol/L (22-30); Chloride 103 mmol/L (98-107); Glucose 137 mg/dL (74-99); Non-African American GFR(CKD) >90 (>60 ml/min/1.73 sqM); Potassium 4.3 mmol/L (3.5-5.1); Sodium 136 mmol/L (137-145)
[2022-04-22 07:28] LABS: Glucose,Whole Blood 128 mg/dL (70-110)
[2022-04-22] MEDS: INSULIN ASPART (NovoLOG) 100 UNIT/ML VIAL SQ SCH ×4 (08:07→20:35)
[2022-04-22] MEDS: ALPRAZolam 0.5 MG TAB PO PRN ×2 (08:12→13:27)
[2022-04-22] MEDS: HEPARIN SODIUM,PORCINE/PF 5,000 UNIT/0.5 ML SYRINGE SQ SCH ×2 (08:13→20:34)
[2022-04-22 08:45] LABS: Amphetamine Screen,Urine Not Detected (NotDetected); Barbiturate Screen,Urine Not Detected (NotDetected); Benzodiazepines Screen,Urine Detected (NotDetected); Cocaine Screen,Urine Not Detected (NotDetected); Methadone Screen, Urine Not Detected (NotDetected); Opiate Screen,Urine Detected (NotDetected); Oxycodone Screen, Urine Not Detected (NotDetected); Phencyclidine Screen,Urine Not Detected (NotDetected); Tricyclic Antidepressant,Urine Not Detected (NotDetected); Urn Cannabinoid Scrn Not Detected (NotDetected)
[2022-04-22] MEDS ORDERED: PIOGLITAZONE 30 MG TAB PO SCH (09:00)
[2022-04-22] MEDS ORDERED: glipiZIDE 10 MG TAB PO SCH (09:00)
[2022-04-22] MEDS ORDERED: metFORMIN 500 MG TAB PO SCH (09:00)
[2022-04-22] MEDS ORDERED: FLUoxetine HCL 20 MG CAP PO SCH (09:00)
[2022-04-22 12:38] LABS: Glucose,Whole Blood 183 mg/dL (70-110)
--- NOTE | 2022-04-22 12:54 | P.PN ---
Progress Note - Text Progress Note Date: 04/22/22 Hospitalist Interval Note Patient seen and examined at bedside. He denies any active suicidal ideations. Has a sitter at bedside. Patient denies any respiratory symptoms. Pending psychiatry evaluation. Vital signs reviewed General: non toxic, no distress, appears at stated age Derm: warm, dry Head: atraumatic, normocephalic, symmetric Eyes: EOMI, no lid lag, anicteric sclera Mouth: no lip lesion, mucus membranes moist Cardiovascular: S1S2 reg, no murmur, positive posterior tibial pulse bilateral, Lungs: CTA bilateral, no rhonchi, no rales , no accessory muscle use Abdominal: soft, nontender to palpation, no guarding, no appreciable organomega ly Ext: no gross muscle atrophy, no edema, no contractures Neuro: CN II-XI grossly intact, no focal neuro deficits Psych: Alert, oriented, appropriate affect Assessment/Plan: Asymptomatic COVID-19 infection Depression with suicidal ideation Type 2 diabetes Asthma -Pending psychiatry evaluation This is an update note for patient , for full note see 04/22/22 at 1:16. There is no charge associated with this note.
[2022-04-22] MEDS: HYDROcodone/APAP 5-325MG 1 EACH TAB PO PRN ×2 (13:29→21:02)
[2022-04-22] MEDS ORDERED: FLUoxetine HCL 20 MG CAP PO STA (15:01)
[2022-04-22] MEDS ORDERED: busPIRone HCl 10 MG TAB PO PRN (15:10)
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
[2022-04-22 17:03] LABS: Glucose,Whole Blood 127 mg/dL (70-110)
[2022-04-22 19:49] VITALS: RESP 17
[2022-04-22 20:08] LABS: Glucose,Whole Blood 160 mg/dL (70-110)
[2022-04-22] MEDS ORDERED: LINAGLIPTIN 5 MG TABLET PO SCH (21:00)
[2022-04-22] MEDS ORDERED: lisinopriL 20 MG TAB PO SCH (21:00)
[2022-04-22] MEDS ORDERED: MIRTAZAPINE 15 MG TAB PO SCH (21:00)
[2022-04-23 06:52] LABS: Glucose,Whole Blood 116 mg/dL (70-110)
[2022-04-23] MEDS: INSULIN ASPART (NovoLOG) 100 UNIT/ML VIAL SQ SCH ×2 (07:08→12:10)
[2022-04-23 07:11] VITALS: PULSE 69
[2022-04-23] MEDS: HYDROcodone/APAP 5-325MG 1 EACH TAB PO PRN ×2 (08:13→13:45)
[2022-04-23] MEDS: HEPARIN SODIUM,PORCINE/PF 5,000 UNIT/0.5 ML SYRINGE SQ SCH (08:14)
[2022-04-23] MEDS ORDERED: FLUoxetine HCL 20 MG CAP PO SCH (09:00)
[2022-04-23 11:09] LABS: Glucose,Whole Blood 178 mg/dL (70-110)
--- NOTE | 2022-04-23 12:05 | P.PN ---
Progress Note - Text Progress Note Date: 04/23/22 Interval History: Patient was seen today for psychiatric follow up. Patient was seen talking to his over the phone and had the sitter beside him. Patient claims that he is doing better today. He claims that he does have mild anxiety from being in the hospital and states that he wants to go home to his . He states that he did not have any problems asleep last night and slept throughout the night. He claims that he feels medications have been helping him. We spoke about outpatie nt services and also follow-up which patient was agreeable to. He asked questions about his medications. I also spoke with patient about the risks of continuing using Ativan and other benzodiazepines including fall, confusion and also possibility of overdose, patient verbally understood and agreed. He claims that his appetite improved since yesterday. At this time patient denies any suicidal or homical ideations, intent or plan. Patient denies any auditory, visual hallucinations and denies any paranoia or delusions. Patient denies any side effects from the medications and has been compliant with meds. Mental Status Exam: general Appearance: Patient appears to be stated age is alert, pleasant, and cooperative. Patient appears to have fair hygiene and grooming wearing hospital gown with fair eye contact. Behavior: Patient is calmly lying in bed without any agitated behavior. Speech: Patient's speech is fluent and nonpressured. Monotone, improving Mood/Affect: Patient reports their mood is "better today", affect is congruent and constricted Suicidality/Homicidality: Patient denies having any suicidal or homicidal ideation intent or plan. Perceptions: Patient denies any visual hallucinations and denies any auditory hallucinations Though content/process: There is no evidence of any delusional thought content and thought process is linear and goal-directed. More future oriented. Memory and concentration: AOX3, grossly intact for the purposes of this session Judgment and insight: fair IMPRESSIONS: Major depressive disorder, without psychotic features anxiety disorder unspecified PLAN: -Delirium precautions recommended with patient including - avoiding use of narcotics and EDGE POLISHER sedatives, limit anticholinergic medications when possible, frequent re-orientation, minimize use of restraints, open window shades during the day and close them at night -Would recommend the following medication changes/additions: Hold off on ativan or any other BZD at this time. can give 2 week supply of buspar 10 bid prn for anxiety. continue with prozac 60 mg daily for mood/anxiety. remeron 15 mg qhs for insomnia/appetite/mood. -can d/c sitter at this time as patient is not endorsing SI and has contracted to safety -electrical lineworker to provide patient with outpatient mental health/psychiatry resources for appropriate follow up upon discharge. was requesting follow up information for psych. -Communicated plan to patient's nurse and pts over the phone. -at this time psychiatry will sign off and patient is ok to transition to outpatient psychiatric services. -Please contact with any questions.
[2022-04-23] MEDS ORDERED: LORazepam 1 MG TAB PO STA (12:56)
[2022-04-23 13:00] VITALS: BP 156/71; TEMP 98.4
--- NOTE | 2022-04-23 15:28 | P.DS ---
Providers Date of admission: 04/21/22 23:19 Expected date of discharge: 04/23/22 Attending physician: Joel Giron MD Consults: 04/21/22 23:18 Consult Physician Routine Consulting Provider: Psychiatry - [facility] Psychiatry Consult Reason/Comments: anxiety, suicidal ideations Do you want consulting provider notified?: Yes Primary care physician: [facility] Course: Discharge Diagnosis: Asymptomatic COVID-19 Depression with suicidal ideations Recent fall and clavicular nondisplaced fracture Type 2 diabetes Asthma Hypertension Hospital Course: 76-year-old male with history of depression, type 2 diabetes, hypertension and asthma presented with worsening depression with suicidal ideations. Psychiatry was consulted. Per their recommendations, patient is safe for discharge. Would discontinue Ativan at the moment. Patient was discharged on BuSpar 10 twice a day when necessary for anxiety, and continue his Prozac, and also Remeron for insomnia. He will have outpatient follow-up with mental health/psychiatry. He is also incidentally found to be COVID-19 positive, but he remains asymptomatic. Patient seen and examined at bedside. Vital signs reviewed and stable. General: nontoxic, no distress, appears at stated age Derm: warm, dry Head: atraumatic, normocephalic, symmetric Eyes: EOMI, no lid lag, anicteric sclera Mouth: no lip lesion, mucus membranes moist Cardiovascular: S1S2 reg, no murmur Lungs: CTA bilateral, no rhonchi, no rales , no accessory muscle use Abdominal: soft, nontender to palpation, no guarding, no appreciable organome sandra Ext: no gross muscle atrophy, no edema, no contractures Neuro: CN II-XI grossly intact, no focal neuro deficits Psych: Alert, oriented, appropriate affect A total of 33 minutes of time were spent preparing this complex discharge summary. Patient was discharged on 04/23/22 at 15:27 . Patient Condition at Discharge: Stable Plan - Discharge Summary New Discharge Prescriptions: New FLUoxetine HCL [PROzac] 60 mg PO DAILY #30 cap Mirtazapine [Remeron] 15 mg PO HS #30 tab busPIRone HCl [Buspar] 10 mg PO BID PRN #30 tab PRN Reason: Anxiety Continue metFORMIN HCL [Glucophage] 1,000 mg PO BID Quinapril HCl [Accupril] 20 mg PO HS sitaGLIPtin [Januvia] 100 mg PO HS Pioglitazone [Actos] 30 mg PO DAILY HYDROcodone/APAP 5-325MG [[place] 5-325] 1 tab PO Q6H PRN PRN Reason: Pain glipiZIDE XL [Glucotrol XL] 10 mg PO BID Albuterol Inhaler [Ventolin Hfa Inhaler] 1 - 2 puff INHALATION RT-Q6H PRN PRN Reason: Shortness Of Breath Discontinued LORazepam [Ativan] 1 dose PO ONCE PRN PRN Reason: Anxiety FLUoxetine HCL 40 mg PO DAILY ALPRAZolam [Xanax] 0.5 mg PO Q6H PRN PRN Reason: Anxiety Discharge Medication List Pioglitazone [Actos] 30 mg PO DAILY 05/21/16 [History] Quinapril HCl [Accupril] 20 mg PO HS 05/21/16 [History] metFORMIN HCL [Glucophage] 1,000 mg PO BID 05/21/16 [History] sitaGLIPtin [Januvia] 100 mg PO HS 05/21/16 [History] HYDROcodone/APAP 5-325MG [[place] 5-325] 1 tab PO Q6H PRN 12/23/21 [History] Albuterol Inhaler [Ventolin Hfa Inhaler] 1 - 2 puff INHALATION RT-Q6H PRN 04/21/22 [History] glipiZIDE XL [Glucotrol XL] 10 mg PO BID 04/21/22 [History] FLUoxetine HCL [PROzac] 60 mg PO DAILY #30 cap 04/23/22 [Rx] Mirtazapine [Remeron] 15 mg PO HS #30 tab 04/23/22 [Rx] busPIRone HCl [Buspar] 10 mg PO BID PRN #30 tab 04/23/22 [Rx] Follow up Appointment(s)/Referral(s): Francesco Lance MD [Primary Care Provider] - 1-2 days Activity/Diet/Wound Care/Special Instructions: Please see your outpatient mental health for depression. Discharge Disposition: HOME SELF-CARE
[2022-04-23 16:05] LABS: Glucose,Whole Blood 116 mg/dL (70-110)
== END 2022-04-23 17:43 | disposition home or self-care (01) ==
LOC: EC 15:13 → 6NMEDSUR 23:19
PROVIDERS: ADMIT Internal Medicine; ATTEND Internal Medicine
DX: F32.9 Major depressive disorder, single episode, unspecified (principal); U07.1 COVID-19; R45.851 Suicidal ideations; E11.65 Type 2 diabetes mellitus with hyperglycemia; F41.9 Anxiety disorder, unspecified; I10 Essential (primary) hypertension; H91.90 Unspecified hearing loss, unspecified ear; G47.00 Insomnia, unspecified; J45.909 Unspecified asthma, uncomplicated; S42.001A Fracture of unspecified part of right clavicle, initial encounter for closed fracture; W19.XXXA Unspecified fall, initial encounter; Z79.84 Long term (current) use of oral hypoglycemic drugs; Z79.899 Other long term (current) drug therapy; Z96.653 Presence of artificial knee joint, bilateral; Z87.891 Personal history of nicotine dependence; Z80.9 Family history of malignant neoplasm, unspecified
CPT/HCPCS: 96372 ×2; 96376; 82075; 96374; 99285; 36415; 93005; 80048 ×2; 85025 ×2; 80306; 87635; G0378 ×3; G0480; J2060; J1644 ×2; 80320

== ENCOUNTER 2022-04-25 09:21 | Emergency (ER) | payer MEDICARE ==
[2022-04-25] MEDS ORDERED: LORazepam 2 MG/ML INJ IM STA (09:37)
--- NOTE | 2022-04-25 09:42 | ED ---
General Adult HPI - General Chief complaint: Anxiety Stated complaint: Anxiety Time Seen by Provider: 04/25/22 09:25 Source: patient, RN notes reviewed, old records reviewed Mode of arrival: ambulatory Limitations: no limitations - History of Present Illness Initial comments: 76-year-old male presenting for evaluation of anxiety, patient recently admitted and discharged after psychiatric evaluation. He continues to feel anxious, is unable to rest. He had medication changes is currently on Prozac, Remeron, and buspar. He denies suicidal plan but states that he does not want to live this way. - Related Data Home Medications Medication Instructions Recorded Confirmed Pioglitazone [Actos] 30 mg PO DAILY 05/21/16 04/21/22 Quinapril HCl [Accupril] 20 mg PO HS 05/21/16 04/21/22 metFORMIN HCL [Glucophage] 1,000 mg PO BID 05/21/16 04/21/22 sitaGLIPtin [Januvia] 100 mg PO HS 05/21/16 04/21/22 HYDROcodone/APAP 5-325MG [[place] 1 tab PO Q6H PRN 12/23/21 04/21/22 5-325] Albuterol Inhaler [Ventolin Hfa 1 - 2 puff INHALATION RT-Q6H PRN 04/21/22 04/21/22 Inhaler] glipiZIDE XL [Glucotrol XL] 10 mg PO BID 04/21/22 04/21/22 Previous Rx's Medication Instructions Recorded FLUoxetine HCL [PROzac] 60 mg PO DAILY #30 cap 04/23/22 Mirtazapine [Remeron] 15 mg PO HS #30 tab 04/23/22 busPIRone HCl [Buspar] 10 mg PO BID PRN #30 tab 04/23/22 Allergies Allergy/AdvReac Type Severity Reaction Status Date / Time No Known Allergies Allergy Verified 04/25/22 09:25 Review of Systems ROS Statement: Those systems with pertinent positive or pertinent negative responses have been documented in the HPI. ROS Other: All systems not noted in ROS Statement are negative. Past Medical History Past Medical History: Diabetes Mellitus, Hypertension Additional Past Medical History / Comment(s): [facility] History of Any Multi-Drug Resistant Organisms: None Reported Past Surgical History: Orthopedic Surgery Additional Past Surgical History / Comment(s): Bilateral knee replacement. Right knee replacement was approx 1 year ago. Past Anesthesia/Blood Transfusion Reactions: No Reported Reaction Past Psychological History: Anxiety, Depression Smoking Status: Former smoker Past Alcohol Use History: None Reported Past Drug Use History: None Reported - Past Family History Mother History Unknown: Yes Father History Unknown: Yes Family Medical History: Cancer General Exam Limitations: no limitations General appearance: anxious Head exam: Present: atraumatic, normocephalic Eye exam: Present: normal appearance, PERRL ENT exam: Present: normal exam Neck exam: Present: normal inspection. Absent: tenderness, meningismus Respiratory exam: Present: normal lung sounds bilaterally. Absent: respiratory distress Cardiovascular Exam: Present: regular rate, normal rhythm GI/Abdominal exam: Present: soft. Absent: distended, tenderness Extremities exam: Present: normal inspection, normal capillary refill Neurological exam: Present: alert, oriented X3. Absent: CN II-XII intact, motor sensory deficit Psychiatric exam: Present: depressed, anxious, suicidal ideation Skin exam: Present: warm, dry, intact Course Vital Signs 04/25/22 04/25/22 09:23 10:34 Temperature 97.8 F Pulse Rate 92 Respiratory 20 20 Rate Blood Pressure 126/91 O2 Sat by Pulse 96 Oximetry - Reevaluation(s) Reevaluation #1: 04/25/22 09:41 Patient cleared for EPS evaluation. Medical Decision Making - Medical Decision Making 76-year-old male with present with anxiety, he was evaluated by EPS and a plan was formulated including outpatient referrals. The patient is agreeable with this plan. He is not actively suicidal. He can be discharged from the emergency department currently. Disposition Clinical Impression: Acute anxiety Disposition: HOME SELF-CARE Condition: Fair Instructions (If sedation given, give patient instructions): Generalized Anxiety Disorder (ED) Is patient prescribed a controlled substance at d/c from ED?: No Referrals: Francesco Lance MD [Primary Care Provider] - 1-2 days Time of Disposition: 11:59
[2022-04-25 12:22] VITALS: BP 119/69; PULSE 84; RESP 18; TEMP 97.6
== END 2022-04-25 12:22 | disposition home or self-care (01) ==
LOC: EC 09:21
DX: F41.9 Anxiety disorder, unspecified (principal); E11.9 Type 2 diabetes mellitus without complications; I10 Essential (primary) hypertension; Z87.891 Personal history of nicotine dependence; Z79.84 Long term (current) use of oral hypoglycemic drugs
CPT/HCPCS: 82075; 99283; 96372; J2060

== ENCOUNTER 2022-04-27 15:05 | Emergency (ER) | payer MEDICARE ==
[2022-04-27 15:16] VITALS: TEMP 98.2
[2022-04-27] MEDS ORDERED: LORazepam 1 MG TAB PO STA (15:36)
[2022-04-27 17:16] VITALS: BP 122/56; PULSE 92; RESP 18
[2022-04-27] MEDS ORDERED: HYDROcodone/APAP 7.5-325MG 1 EACH TAB PO ONE (18:20)
[2022-04-27] MEDS ORDERED: ACET/COD 300 MG/30 MG STARTER PACK 6 TAB BTL PO STA (18:20)
--- NOTE | 2022-04-27 18:24 | ED ---
Psych HPI - General Chief Complaint: Psychiatric Symptoms Stated Complaint: Anxiety Time Seen by Provider: 04/27/22 15:20 Source: patient Mode of arrival: wheelchair - History of Present Illness Initial Comments: Patient is a 76-year-old male presenting with chief complaint of anxiety. 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 This caused him to hyperventilate. Patient states that "I can't take the pressure", but he is unable to elaborate on what this pressure is. Patient has been here 2 other times recently for the same complaint. He denies any suicidal plan. Denies any homicidal ideation. He admits to a headache at this time, he recently tested positive for Covid. Denies any chest pain, shortness of breath, fever, chills, nausea, vomiting, vision or hearing changes, neck pain or stiffness, abdominal pain. - Related Data Home Medications Medication Instructions Recorded Confirmed Pioglitazone [Actos] 30 mg PO DAILY 05/21/16 04/21/22 Quinapril HCl [Accupril] 20 mg PO HS 05/21/16 04/21/22 metFORMIN HCL [Glucophage] 1,000 mg PO BID 05/21/16 04/21/22 sitaGLIPtin [Januvia] 100 mg PO HS 05/21/16 04/21/22 HYDROcodone/APAP 5-325MG [[place] 1 tab PO Q6H PRN 12/23/21 04/21/22 5-325] Albuterol Inhaler [Ventolin Hfa 1 - 2 puff INHALATION RT-Q6H PRN 04/21/22 04/21/22 Inhaler] glipiZIDE XL [Glucotrol XL] 10 mg PO BID 04/21/22 04/21/22 Previous Rx's Medication Instructions Recorded FLUoxetine HCL [PROzac] 60 mg PO DAILY #30 cap 04/23/22 Mirtazapine [Remeron] 15 mg PO HS #30 tab 04/23/22 busPIRone HCl [Buspar] 10 mg PO BID PRN #30 tab 04/23/22 hydrOXYzine HCL [Atarax] 25 mg PO TID PRN #10 tab 04/27/22 Allergies Allergy/AdvReac Type Severity Reaction Status Date / Time No Known Allergies Allergy Verified 04/27/22 15:16 Review of Systems ROS Statement: Those systems with pertinent positive or pertinent negative responses have been documented in the HPI. ROS Other: All systems not noted in ROS Statement are negative. Past Medical History Past Medical History: Diabetes Mellitus, Hypertension Additional Past Medical History / Comment(s): [place] History of Any Multi-Drug Resistant Organisms: None Reported Past Surgical History: Orthopedic Surgery Additional Past Surgical History / Comment(s): Bilateral knee replacement. Right knee replacement was approx 1 year ago. Past Anesthesia/Blood Transfusion Reactions: No Reported Reaction Past Psychological History: Anxiety, Depression Smoking Status: Former smoker Past Alcohol Use History: None Reported Past Drug Use History: None Reported - Past Family History Mother History Unknown: Yes Father History Unknown: Yes Family Medical History: Cancer General Exam Limitations: no limitations General appearance: alert, anxious Head exam: Present: atraumatic, normocephalic, normal inspection Eye exam: Present: normal appearance, PERRL, EOMI. Absent: scleral icterus, conjunctival injection, periorbital swelling Neck exam: Present: normal inspection Respiratory exam: Present: normal lung sounds bilaterally. Absent: respiratory distress, wheezes, rales, rhonchi, stridor Cardiovascular Exam: Present: regular rate, normal rhythm, normal heart sounds. Absent: systolic murmur, diastolic murmur, rubs, gallop, clicks Neurological exam: Present: alert, oriented X3, CN II-XII intact Psychiatric exam: Present: normal affect, normal mood Skin exam: Present: warm, dry, intact, normal color. Absent: rash Course Vital Signs 04/27/22 04/27/22 15:08 17:15 Temperature 98.2 F Pulse Rate 107 H 92 Respiratory 26 H 18 Rate Blood Pressure 158/64 122/56 O2 Sat by Pulse 94 L 95 Oximetry Medical Decision Making - Medical Decision Making Patient is a 76-year-old male presenting with chief complaint of anxiety. He admits to headache, he is otherwise asymptomatic. On physical examination patient is hyperventilating to anxiety. He is given Ativan. He is evaluated by EPS, who states that he is in eligible for admission at this time due to recent positive Covid test, she believes he is stable for discharge. He is not actively suicidal. He'll be discharged with anxiety medication and instructions to follow up with his PCP. Report back to ER with any new or worsening symptoms. Discussed return parameters and answered all questions. Patient conveyed verbal understanding and agreed to the plan. I discussed this case in detail with my attending Dr. Woodson. Disposition Clinical Impression: Anxiety Disposition: HOME SELF-CARE Condition: Good Instructions (If sedation given, give patient instructions): Anxiety (ED), Anxiolysis in Adults (ED) Additional Instructions: Follow-up with PCP. Report back to ER with any new or worsening symptoms. Take medication as prescribed. Prescriptions: hydrOXYzine HCL [Atarax] 25 mg PO TID PRN #10 tab PRN Reason: Anxiety Is patient prescribed a controlled substance at d/c from ED?: No Referrals: Francesco Lance MD [Primary Care Provider] - 1-2 days Time of Disposition: 18:24
== END 2022-04-27 19:12 | disposition home or self-care (01) ==
LOC: EC 15:05
DX: F41.9 Anxiety disorder, unspecified (principal); R51.9 Headache, unspecified; E11.9 Type 2 diabetes mellitus without complications; I10 Essential (primary) hypertension; Z79.899 Other long term (current) drug therapy; Z79.84 Long term (current) use of oral hypoglycemic drugs; Z87.891 Personal history of nicotine dependence
CPT/HCPCS: 82075; 99283

== ENCOUNTER → 2022-06-23 | Outpatient (CLI) | payer MEDICARE ==
[2022-06-23 22:16] LABS: Appearance,BF Hazy; Color,BF Yellow; Nucleated Cells, Body Fluid 15 /uL; RBC, Body Fluid 3815 /uL
== END | disposition home or self-care (01) ==
LOC: LABWHC1 16:36
PROVIDERS: ATTEND Orthopaedic Surgery
DX: Z96.653 Presence of artificial knee joint, bilateral (principal); M25.561 Pain in right knee; T84.022A Instability of internal right knee prosthesis, initial encounter; M25.562 Pain in left knee; Y82.9 Unspecified medical devices associated with adverse incidents
CPT/HCPCS: 36415; 85379; 85652; 86140; 87070; 87075; 87205; 89050

== ENCOUNTER → 2022-08-18 | Outpatient (CLI) | payer MEDICARE ==
[2022-08-18 19:27] LABS: Protein, Total 7.4 g/dL (6.2-8.2)
== END | disposition home or self-care (01) ==
LOC: LABWHC1 11:38
PROVIDERS: ATTEND Psychiatry & Neurology Neurology
DX: G90.09 Other idiopathic peripheral autonomic neuropathy (principal)
CPT/HCPCS: 36415; 82607; 84165; 84207; 86334

== ENCOUNTER 2022-11-09 17:47 | Inpatient (IN) | payer MEDICARE ==
--- NOTE | 2022-11-09 17:49 | ED ---
General Adult HPI <Bria Hameed - Last Filed: 11/09/22 17:49> <Azam Mcclellan - Last Filed: 11/13/22 17:15> - General Stated complaint: mental health Time Seen by Provider: 11/09/22 17:49 - History of Present Illness Initial comments: 77-year-old male with no significant past medical history presents the emergency Department with a chief complaint of psychiatric symptom patient was recently unable to sleep. (Bria Hameed) Dictation was produced using [employer] dictation software. please excuse any grammatical, word or spelling errors. Chief Complaint: 77-year-old male with history of depression and previous admissions presents here for suicidal ideation History of Present Illness: 77-year-old male he is with his . Patient states he is suicidal. He states he wants to shoot himself in the head with a gun. Patient is being admitted to inpatient psych in the past. Patient states that he is not getting any better outpatient. Decided come to the ER today. P atient denies any visual auditory hallucinations. The ROS documented in this emergency department record has been reviewed and confirmed by me. Those systems with pertinent positive or negative responses have been documented in the HPI. All other systems are other negative and/or noncontributory. (Azam Mcclellan) - Related Data Home Medications Medication Instructions Recorded Confirmed Pioglitazone [Actos] 30 mg PO DAILY 05/21/16 11/09/22 Quinapril HCl [Accupril] 20 mg PO DAILY 05/21/16 11/09/22 metFORMIN HCL [Glucophage] 1,000 mg PO BID 05/21/16 11/09/22 sitaGLIPtin [Januvia] 100 mg PO HS 05/21/16 11/09/22 Albuterol Inhaler [Ventolin Hfa 1 - 2 puff INHALATION RT-Q6H PRN 04/21/22 11/09/22 Inhaler] DULoxetine HCL [Cymbalta] See Taper PO DIRECTED 11/09/22 11/09/22 Escitalopram [Lexapro] 10 mg PO DAILY 11/09/22 11/09/22 Propranolol LA [Inderal LA] 60 mg PO DAILY PRN 11/09/22 11/09/22 glipiZIDE [Glucotrol] 10 mg PO BID 11/09/22 11/09/22 hydrOXYzine HCL [Atarax] 25 mg PO TID 11/09/22 11/09/22 Allergies Allergy/AdvReac Type Severity Reaction Status Date / Time No Known Allergies Allergy Verified 11/09/22 22:40 Review of Systems ROS Other: All systems not noted in ROS Statement are negative. <Bria Hameed - Last Filed: 11/09/22 17:49> ROS Other: All systems not noted in ROS Statement are negative. <Azam Mcclellan - Last Filed: 11/13/22 17:15> ROS Statement: Those systems with pertinent positive or pertinent negative responses have been documented in the HPI. Past Medical History Past Medical History: Diabetes Mellitus, Hypertension Additional Past Medical History / Comment(s): [place] [place] History of Any Multi-Drug Resistant Organisms: None Reported Past Surgical History: Orthopedic Surgery Additional Past Surgical History / Comment(s): Bilateral knee replacement. Right knee replacement was approx 1 year ago. Past Anesthesia/Blood Transfusion Reactions: No Reported Reaction Past Psychological History: Anxiety, Depression Smoking Status: Former smoker Past Alcohol Use History: None Reported Past Drug Use History: None Reported - Past Family History Mother History Unknown: Yes Father History Unknown: Yes Family Medical History: Cancer <Bria Hameed - Last Filed: 11/09/22 17:49> General Exam <Bria Hameed - Last Filed: 11/09/22 17:49> <Azam Mcclellan - Last Filed: 11/13/22 17:15> - General Exam Comments Initial Comments: Visual Physical Exam Vital signs reviewed General: Well-appearing, nontoxic, no acute distress. Head: Normocephalic, atraumatic Eyes: PERRLA, EOMI ENT: Airway patent Chest: Nonlabored breathing Skin: No visual rash, normal skin tone Neuro: Alert and oriented 3 Musculoskeletal: No gross abnormalities (Bria Hameed) PHYSICAL EXAM: General Impression: Alert and oriented x3, not in acute distress HEENT: Normocephalic atraumatic, extra-ocular movements intact, pupils equal and reactive to light bilaterally, mucous membranes moist. Cardiovascular: Heart regular rate and rhythm Chest: Able to complete full sentences, no retractions, no tachypnea Musculoskeletal: no peripheral edema Motor: no focal deficits noted Neurological: CN II-XII grossly intact, no focal motor or sensory deficits noted Skin: Intact with no visualized rashes Psych: Normal affect and mood (Azam Mcclellan) Course Vital Signs 11/09/22 18:46 Temperature 98.2 F Pulse Rate 83 Respiratory 18 Rate Blood Pressure 150/83 O2 Sat by Pulse 95 Oximetry Medical Decision Making - Lab Data Result diagrams: 11/11/22 07:15 11/11/22 07:15 <Azam Mcclellan - Last Filed: 11/13/22 17:15> - Medical Decision Making Was pt. sent in by a medical professional or institution (, PA, HEAD PAPER TESTER, urgent care, hospital, or senior living...) When possible be specific @ -No Did you speak to anyone other than the patient for history (EMS, parent, family, police, friend...)? What history was obtained from this source @ -No Did you review nursing and triage notes (agree or disagree)? Why? @ -I reviewed and agree with nursing and triage notes Were old charts reviewed (outside hosp., previous admission, EMS record, old EKG, old radiological studies, urgent care reports/EKG's, senior living records)? Report findings @ -Psychiatric notes are reviewed Differential Diagnosis (chest pain, altered mental status, abdominal pain women, abdominal pain men, vaginal bleeding, musculoskeletal, weakness, fever, dyspn ea, syncope, headache, dizziness, GI bleed, back pain, seizure, CVA, palpatations, mental health)? @ -Differential Mental Health: Depression, anxiety, bipolar, psychosis, schizophrenia, borderline personality, situational depression, adjustment disorder, behavioral disorder, brain tumor, malingering, substance abuse, encephalopathy, medication reaction, dementia, hypothyroidism, degenerative neurologic disorder, lupus.... This is not meant to be all-inclusive list EKG interpreted by me (3pts min.). @ -None done X-rays interpreted by me (1pt min.). @ -None done CT interpreted by me (1pt min.). @ -None done U/S interpreted by me (1pt. min.). @ -None done What testing was considered but not performed or refused? (CT, X-rays, U/S, labs)? Why? @ -None What meds were considered but not given or refused? Why? @ -None Did you discuss the management of the patient with other professionals (professionals i.e. Dr., PA, HEAD PAPER TESTER, lab, RT, psych nurse, social media developer, mobile application engineer, teacher, parking control officer, case management director)? Give summary @ -No Was smoking cessation discussed for >3mins.? @ -No Was critical care preformed (if so, how long)? @ -No Were there social determinants of health that impacted care today? How? (Homelessness, low income, unemployed, alcoholism, drug addiction, transportation, low edu. Level, literacy, decrease access to med. care, halfway, rehab)? @ -No Was there de-escalation of care discussed even if they declined (Discuss DNR or withdrawal of care, Hospice)? DNR status @ -No What co-morbidities impacted this encounter? (DM, HTN, Smoking, COPD, CAD, Cancer, CVA, ARF, Chemo, Hep., AIDS, mental health diagnosis, sleep apnea, m orbid obesity)? @ -None Was patient admitted / discharged? Hospital course, mention meds given and route, prescriptions, significant lab abnormalities, going to OR and other pertinent info. @ -77-year-old male presents for suicidal ideation. Patient has no medical complaints. Physical exam is benign. Patient medically cleared for EPS hermelindo luevelio. Undiagnosed new problem with uncertain prognosis? @ -No Drug Therapy requiring intensive monitoring for toxicity (Heparin, Nitro, Ins ulin, Cardizem)? @ -No Were any procedures done? @ -No Diagnosis/symptom? Acute, or Chronic, or Acute on Chronic? Uncomplicated (without systemic symptoms) or Complicated (systemic symptoms)? @ -1. Suicidal ideation Side effects of treatment? @ -No Exacerbation, Progression, or Severe Exacerbation? @ -No Poses a threat to life or bodily function? How? (Chest pain, [place], [place], pneumonia, PE, COPD, DKA, ARF, appy, cholecystitis, CVA, Diverticulitis, Homicidal, Suicidal, threat to staff... and all critical care pts) @ -yes Case signed out to oncoming physician for follow-up EPS recommendations Patient chart reviewed a later date. Patient admitted to mental health unit. (Azam Mcclellan) - Lab Data Lab Results 11/09/22 11/09/2211/09/23 Range/Units 07:00 18:51 19:08 Urine Color Yellow Urine Appearance Turbid (Clear) Urine pH 5.5 (5.0-8.0) Ur Specific [place] 1.026 (1.001-1.035) Urine Protein Trace H (Negative) Urine Glucose (UA) Negative (Negative) Urine Ketones Negative (Negative) Urine Blood Negative (Negative) Urine Nitrite Negative (Negative) Urine Bilirubin Negative (Negative) Urine Urobilinogen 2.0 (<2.0) mg/dL Ur Leukocyte Esterase Negative (Negative) Urine WBC 4 (0-5) /hpf Amorphous Sediment Few H (None) /hpf Urine Mucus Occasional H (None) /hpf Urine Opiates Screen Not Detected (NotDetected) Ur Oxycodone Screen Not Detected (NotDetected) Urine Methadone Screen Not Detected (NotDetected) Ur Propoxyphene Screen Not Detected (NotDetected) Ur Barbiturates Screen Not Detected (NotDetected) U Tricyclic Antidepress Not Detected (NotDetected) Ur Phencyclidine Scrn Not Detected (NotDetected) Ur Amphetamines Screen Not Detected (NotDetected) U Methamphetamines Scrn Not Detected (NotDetected) U Benzodiazepines Scrn Not Detected (NotDetected) Urine Cocaine Screen Not Detected (NotDetected) U Marijuana (THC) Screen Not Detected (NotDetected) Coronavirus (PCR) Not Detected (Not Detectd) Disposition <Bria Hameed - Last Filed: 11/09/22 17:49> <Azam Mcclellan - Last Filed: 11/13/22 17:15> Clinical Impression: Suicidal ideation Disposition: ADMITTED IP TO THIS HOSP
[2022-11-09 20:19] LABS: Amphetamine Screen,Urine Not Detected (NotDetected); Barbiturate Screen,Urine Not Detected (NotDetected); Benzodiazepines Screen,Urine Not Detected (NotDetected); Cocaine Screen,Urine Not Detected (NotDetected); Methadone Screen, Urine Not Detected (NotDetected); Opiate Screen,Urine Not Detected (NotDetected); Oxycodone Screen, Urine Not Detected (NotDetected); Phencyclidine Screen,Urine Not Detected (NotDetected); Tricyclic Antidepressant,Urine Not Detected (NotDetected); Urn Cannabinoid Scrn Not Detected (NotDetected)
[2022-11-10] MEDS ORDERED: PROPRANOLOL LA 60 MG CAP.SA.24H PO PRN (00:03)
[2022-11-10] MEDS ORDERED: MAGNESIUM HYDROXIDE 2,400 MG/10 ML CUP PO PRN (00:06)
[2022-11-10] MEDS ORDERED: ACETAMINOPHEN TAB 325 MG TAB PO PRN (00:06)
[2022-11-10] MEDS ORDERED: MAG HYDROX/AL HYDROX/SIMETH 30 ML CUP PO PRN (00:06)
[2022-11-10] MEDS ORDERED: LORazepam 2 MG/ML INJ IM PRN (00:08)
[2022-11-10] MEDS ORDERED: hydrOXYzine HCL 25 MG TAB PO STA (00:11)
[2022-11-10] MEDS ORDERED: glipiZIDE 10 MG TAB PO SCH (00:15)
[2022-11-10] MEDS ORDERED: LINAGLIPTIN 5 MG TABLET PO SCH (00:15)
[2022-11-10] MEDS ORDERED: metFORMIN 500 MG TAB PO SCH (00:15)
[2022-11-10] MEDS: LORazepam 1 MG TAB PO PRN ×2 (00:40→17:44)
[2022-11-10] MEDS: hydrOXYzine pamoate 25 MG CAP PO PRN (00:46)
[2022-11-10] MEDS ORDERED: DULoxetine HCL 30 MG CAPSULE.DR PO SCH (09:00)
[2022-11-10 09:37] LABS: Amorphous Sediment,Urine Few /hpf; Appearance,Urine Turbid (Clear); Bilirubin,Urine Negative (Negative); Blood,Urine Negative (Negative); Color,Urine Yellow; Glucose,Urine (UA) Negative (Negative); Ketones,Urine Negative (Negative); Leukocyte Esterase,Urine Negative (Negative); Mucus,Urine Occasional /hpf; Nitrite,Urine Negative (Negative); PH, Urine 5.5 (5.0-8.0); Protein,Urine Trace (Negative); Specific Gravity,Urine 1.026 (1.001-1.035); WBC,Urine 4 /hpf (0-5)
[2022-11-10 09:50] LABS: Glucose,Whole Blood 161 mg/dL (70-110)
[2022-11-10] MEDS: metFORMIN 500 MG TAB PO SCH ×2 (09:50→21:28)
[2022-11-10] MEDS: LINAGLIPTIN 5 MG TABLET PO SCH ×2 (09:50→21:29)
[2022-11-10] MEDS: PIOGLITAZONE 30 MG TAB PO SCH (09:51)
[2022-11-10] MEDS: glipiZIDE 10 MG TAB PO SCH ×2 (09:51→21:29)
[2022-11-10] MEDS: ESCITALOPRAM 10 MG TAB PO SCH (09:51)
[2022-11-10] MEDS: lisinopriL 20 MG TAB PO SCH (09:52)
--- NOTE | 2022-11-10 13:16 | P.HP ---
Psychiatric H&P - . H&P Date: 11/10/22 History & Physical: Allergies Allergy/AdvReac Type Severity Reaction Status Date / Time No Known Allergies Allergy Verified 11/09/22 22:40 Vital Signs Temp 97.7 F 11/10/22 01:49 Pulse 106 H 11/10/22 09:50 Resp 18 11/10/22 01:49 BP 176/81 11/10/22 09:50 Pulse Ox 96 11/10/22 01:49 FiO2 Intake & Output 11/09/22 11/10/22 11/10/22 18:59 06:59 18:59 Weight 97.522 kg 97.976 kg Laboratory Last Values POC Glucose (mg/dL) 161 mg/dL (70-110) H 11/10/22 09:48 POC Glu Science Technicians ID Jesica Garcia 11/10/22 09:48 Urine Color Yellow 11/09/22 07:00 Urine Appearance Turbid (Clear) 11/09/22 07:00 Urine pH 5.5 (5.0-8.0) 11/09/22 07:00 Ur Specific [place] 1.026 (1.001-1.035) 11/09/22 07:00 Urine Protein Trace (Negative) H 11/09/22 07:00 Urine Glucose (UA) Negative (Negative) 11/09/22 07:00 Urine Ketones Negative (Negative) 11/09/22 07:00 Urine Blood Negative (Negative) 11/09/22 07:00 Urine Nitrite Negative (Negative) 11/09/22 07:00 Urine Bilirubin Negative (Negative) 11/09/22 07:00 Urine Urobilinogen 2.0 mg/dL (<2.0) 11/09/22 07:00 Ur Leukocyte Esterase Negative (Negative) 11/09/22 07:00 Urine WBC 4 /hpf (0-5) 11/09/22 07:00 Amorphous Sediment Few /hpf (None) H 11/09/22 07:00 Urine Mucus Occasional /hpf (None) H 11/09/22 07:00 Urine Opiates Screen Not Detected (NotDetected) 11/09/22 19:08 Ur Oxycodone Screen Not Detected (NotDetected) 11/09/22 19:08 Urine Methadone Screen Not Detected (NotDetected) 11/09/22 19:08 Ur Propoxyphene Screen Not Detected (NotDetected) 11/09/22 19:08 Ur Barbiturates Screen Not Detected (NotDetected) 11/09/22 19:08 U Tricyclic Antidepress Not Detected (NotDetected) 11/09/22 19:08 Ur Phencyclidine Scrn Not Detected (NotDetected) 11/09/22 19:08 Ur Amphetamines Screen Not Detected (NotDetected) 11/09/22 19:08 U Methamphetamines Scrn Not Detected (NotDetected) 11/09/22 19:08 U Benzodiazepines Scrn Not Detected (NotDetected) 11/09/22 19:08 Urine Cocaine Screen Not Detected (NotDetected) 11/09/22 19:08 U Marijuana (THC) Screen Not Detected (NotDetected) 11/09/22 19:08 Coronavirus (PCR) Not Detected (Not Detectd) 11/09/22 18:51 11/10/22 13:16 IDENTIFYING DATA: Patient is a , retired, 77-year-old male with significant history of depression who presents to our hospital on 11/09/2022 with a chief complaint of depression and anxiety along with suicidal ideation. HPI: Patient presented to the hospital on 11/09/2022, vitamins the hospital for depression and suicidal ideation. The patient has been undergoing medication changes in regards to his antidepressants. He was being tapered off Cymbalta and started on Lexapro with his last med review being on 11/05/2022. The patient reports that he has been having significant depression and anxiety symptoms with the change in his medication regimen. He endorses significant symptoms of depression including anhedonia, decreased appetite, decreased hygiene and grooming, poor sleep, low energy, and suicidal ideation. He reports that he had a plan to retrieve firearm from his gun safe however did not do so. He denies any prior attempts at suicide. In regards to current stressors, the patient is unable to identify any aside from the recent passing of his sister earlier this year. The patient states that "I have a beautiful family, I have multiple properties, I have everything I could possibly want, why am I depressed?" The patient is not endorsing any other significant symptoms of bipolar disorder. He denies any history of kaleb or hypomania. He denies any grandiosity, increased goal-directed activity, or mood lability. The patient is not reporting any auditory or visual hallucinations. He is denying any paranoia or other delusions. The patient does endorse elevated anxiety. He does report excessive feelings of guilt. He is agreeable to signing himself voluntarily into the psychiatric unit for further treatment. PAST PSYCHIATRIC HISTORY: Patient states that he has been previously diagnosed with depression. He has been previously prescribed Cymbalta and Abilify and was most recently being transitioned to Lexapro. He also takes Vistaril as needed for anxiety. This is the patient's first inpatient psychiatric hospitalization. He is currently open with [facility]. Patient denies any history of suicide attempts in the past. PMH: Past Medical History: Diabetes Mellitus, Hypertension Additional Past Medical History / Comment(s): [facility] History of Any Multi-Drug Resistant Organisms: None Reported Past Surgical History: Orthopedic Surgery Additional Past Surgical History / Comment(s): Bilateral knee replacement. Right knee replacement was approx 1 year ago. Past Anesthesia/Blood Transfusion Reactions: No Reported Reaction Past Psychological History: Anxiety, Depression Smoking Status: Former smoker Past Alcohol Use History: None Reported Past Drug Use History: None Reported ALLERGIES: NO KNOWN DRUG ALLERGIES CHEMICAL DEPENDENCY HISTORY: The patient denies any tobacco, alcohol, marijuana, or illicit drug use. FAMILY PSYCHIATRIC/SUBSTANCE USE HISTORY: The patient reports that his mother and sister were alcoholics. SOCIAL HISTORY: Patient was born in [place] and raised "[place]." He has been to his Jeimy for 50 years. They have 2 children, 5 grandchildren, and 2 great-grandchildren. 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 He completed up to the ninth grade. He is Mandaeism. He denies any service. He reports no legal issues. He currently lives with his . His hobbies and interests include art, string heart, and cards. MENTAL STATUS EXAM: General Appearance: Patient appears to be stated age is alert, directable, and attempts to cooperate. Patient appears to have fair hygiene and grooming. Behavior: Patient is seated without any agitated behavior. Psychomotor slowing is evident. Speech: Patient's speech is fluent and nonpressured. Mood/Affect: Patient reports their mood is "just very nervous and depressed," affect is congruent and anxious. Suicidality/Homicidality: Patient is currently denying any suicidal or homicidal ideation. Perceptions: Patient denies any visual hallucinations and denies any auditory hallucinations Though content/process: There is no evidence of any delusional thought content and thought process is linear and goal-directed. Memory and concentration: AOX3, grossly intact for the purposes of this session. Can spell "WORLD" backwards Judgment and insight: Fair STRENGTHS/WEAKNESSES: Strength is that the patient has very strong social supports, is financially stable, and is in relatively good health. Weakness is that the patient has access to firearms. INTELLECT: average IMPRESSIONS: Major depressive disorder, recurrent, severe, with anxious features PLAN: -Patient is admitted under voluntary status to MHU for stabilization of psychiatric symptoms and safety. Patient signed adult voluntary form and medication consent and is placed in patient's chart. -Medications : Lexapro 10 mg by mouth daily for depression/anxiety Remeron 7.5 mg by mouth at bedtime for depression Vistaril 25 mg by mouth every 8 hours when necessary for anxiety Consider holding Inderal however patient's blood pressure continues to be elevated. -Ativan and Vistaril PRN for anxiety -Patient was informed of the risks, benefits and side effects of the medication and patient verbally consented to taking the medications. Patient signed med consent form and was placed in chart. -Internal Medicine consult to perform medical evaluation and physical. -SW on board for discharge planning. Encourage patient to participate in groups to work on coping skills. 11/10/22 13:16
[2022-11-10] MEDS ORDERED: MIRTAZAPINE 15 MG TAB PO SCH (21:00)
[2022-11-11 07:39] LABS: Glucose,Whole Blood 76 mg/dL (70-110)
[2022-11-11 07:54] LABS: Basophils % (A) 0 %; Eosinophils # (A) 0.2 k/uL (0-0.7); Eosinophils % (A) 4 %; HCT 43.8 % (39.0-53.0); HGB 14.7 gm/dL (13.0-17.5); Lymphocytes # (A) 1.6 k/uL (1.0-4.8); Lymphocytes % (A) 23 %; MCH 30.7 pg (25.0-35.0); MCHC 33.6 g/dL (31.0-37.0); MCV 91.4 fL (80.0-100.0); Monocytes # (A) 0.4 k/uL (0-1.0); Monocytes % (A) 6 %; Neutrophils # (A) 4.3 k/uL (1.3-7.7); Neutrophils % (A) 64 %; Platelet Count 248 k/uL (150-450); RDW 15.7 % (11.5-15.5); WBC 6.8 k/uL (3.8-10.6)
[2022-11-11 08:08] LABS: ALT 20 U/L (4-49); AST 25 U/L (17-59); African American GFR (CKD) >90 (>60 ml/min/1.73 sqM); Albumin 4.1 g/dL (3.5-5.0); Alkaline Phosphatase 63 U/L (38-126); Anion Gap 11 mmol/L; Blood Urea Nitrogen 12 mg/dL (9-20); Calcium 9.5 mg/dL (8.4-10.2); Carbon Dioxide 25 mmol/L (22-30); Chloride 107 mmol/L (98-107); Glucose 61 mg/dL (74-99); Non-African American GFR(CKD) 83 (>60 ml/min/1.73 sqM); Potassium 4.2 mmol/L (3.5-5.1); Sodium 143 mmol/L (137-145); Total Bilirubin 0.5 mg/dL (0.2-1.3); Total Protein 7.1 g/dL (6.3-8.2)
[2022-11-11] MEDS: metFORMIN 500 MG TAB PO SCH ×2 (09:00→20:42)
[2022-11-11] MEDS: PIOGLITAZONE 30 MG TAB PO SCH (09:00)
[2022-11-11] MEDS: glipiZIDE 10 MG TAB PO SCH ×2 (09:00→20:42)
[2022-11-11] MEDS: lisinopriL 20 MG TAB PO SCH (09:01)
[2022-11-11] MEDS: ESCITALOPRAM 10 MG TAB PO SCH (09:01)
[2022-11-11 11:02] LABS: Chol/HDL Ratio 3.36 Ratio; LDL Cholesterol,Calculated 86.6 mg/dL (0.0-131.0); VLDL Calculation 18.66 mg/dL (5.00-40.00)
--- NOTE | 2022-11-11 11:34 | P.PN ---
Progress Note - Text Progress Note Date: 11/11/22 Interval History: Patient was seen resting in bed and was directable and agreeable to speak with physician underwriter in the office. Currently, the patient is not reporting any suicidal or homicidal ideation, intention, and/or plan. He is not reporting any auditory or visual hallucinations. He is not reporting any paranoia or other delusions. He has been adherent with his medications and is not endorsing any significant side effects. He does express no issues regarding his sleep or his appetite. He rates his depression and anxiety 6 out of 10 in severity with 10 being very severe. This is an improvement from 10 out of 10 depression and anxiety on admission. He does report subjective feelings of depression and low energy. He does report anxiety is elevated due to the milieu. He is future and goal oriented. Mental Status Exam: General Appearance: Patient appears to be stated age is alert, directable, and cooperative. Behavior: Patient is calmly seated without any agitated behavior. Speech: Patient's speech is fluent and nonpressured. Mood/Affect: Mood is improving mildly, affect is congruent and with more range today. Suicidality/Homicidality: Patient denies having any suicidal or homicidal ideation intent or plan. Perceptions: Patient denies any visual hallucinations and denies any auditory hallucinations Though content/process: There is no evidence of any delusional thought content and thought process is linear and goal-directed. Memory and concentration: AOX3, grossly intact for the purposes of this session Judgment and insight: Improving mildly Vital Signs Temp 97.4 F L 11/11/22 08:49 Pulse 85 11/11/22 11:05 Resp 16 11/11/22 11:05 BP 137/60 11/11/22 11:05 Pulse Ox 96 11/10/22 01:49 FiO2 Laboratory Results WBC 6.8 k/uL (3.8-10.6) 11/11/22 07:15 RBC 4.80 m/uL (4.30-5.90) 11/11/22 07:15 Hgb 14.7 gm/dL (13.0-17.5) 11/11/22 07:15 Hct 43.8 % (39.0-53.0) 11/11/22 07:15 MCV 91.4 fL (80.0-100.0) 11/11/22 07:15 MCH 30.7 pg (25.0-35.0) 11/11/22 07:15 MCHC 33.6 g/dL (31.0-37.0) 11/11/22 07:15 RDW 15.7 % (11.5-15.5) H 11/11/22 07:15 Plt Count 248 k/uL (150-450) 11/11/22 07:15 MPV 8.0 11/11/22 07:15 Neutrophils % 64 % 11/11/22 07:15 Lymphocytes % 23 % 11/11/22 07:15 Monocytes % 6 % 11/11/22 07:15 Eosinophils % 4 % 11/11/22 07:15 Basophils % 0 % 11/11/22 07:15 Neutrophils # 4.3 k/uL (1.3-7.7) 11/11/22 07:15 Lymphocytes # 1.6 k/uL (1.0-4.8) 11/11/22 07:15 Monocytes # 0.4 k/uL (0-1.0) 11/11/22 07:15 Eosinophils # 0.2 k/uL (0-0.7) 11/11/22 07:15 Basophils # 0.0 k/uL (0-0.2) 11/11/22 07:15 Sodium 143 mmol/L (137-145) 11/11/22 07:15 Potassium 4.2 mmol/L (3.5-5.1) 11/11/22 07:15 Chloride 107 mmol/L (98-107) 11/11/22 07:15 Carbon Dioxide 25 mmol/L (22-30) 11/11/22 07:15 Anion Gap 11 mmol/L 11/11/22 07:15 BUN 12 mg/dL (9-20) 11/11/22 07:15 Creatinine 0.86 mg/dL (0.66-1.25) 11/11/22 07:15 Est GFR (CKD-EPI)AfAm >90 (>60 ml/min/1.73 sqM) 11/11/22 07:15 Est GFR (CKD-EPI)NonAf 83 (>60 ml/min/1.73 sqM) 11/11/22 07:15 Glucose 61 mg/dL (74-99) L 11/11/22 07:15 POC Glucose (mg/dL) 76 mg/dL (70-110) 11/11/22 07:36 POC Glu Fiber Optic Assembler ID 11/11/22 07:[address] Glu mg/dL 140 11/11/22 07:15 Hemoglobin A1c 6.5 % (0.0-6.0) H 11/11/22 07:15 Calcium 9.5 mg/dL (8.4-10.2) 11/11/22 07:15 Total Bilirubin 0.5 mg/dL (0.2-1.3) 11/11/22 07:15 AST 25 U/L (17-59) 11/11/22 07:15 ALT 20 U/L (4-49) 11/11/22 07:15 Alkaline Phosphatase 63 U/L (38-126) 11/11/22 07:15 Total Protein 7.1 g/dL (6.3-8.2) 11/11/22 07:15 Albumin 4.1 g/dL (3.5-5.0) 11/11/22 07:15 Triglycerides 93.30 mg/dL (0.00-149.00) 11/11/22 07:15 Cholesterol 150.00 mg/dL (0.00-200.00) 11/11/22 07:15 LDL Cholesterol, Calc 86.6 mg/dL (0.0-131.0) 11/11/22 07:15 VLDL Cholesterol, Calc 18.66 mg/dL (5.00-40.00) 11/11/22 07:15 HDL Cholesterol 44.70 mg/dL (40.00-60.00) 11/11/22 07:15 Cholesterol/HDL Ratio 3.36 Ratio 11/11/22 07:15 TSH 1.320 mIU/L (0.465-4.680) 11/11/22 07:15 Urine Color Yellow 11/09/22 07:00 Urine Appearance Turbid (Clear) 11/09/22 07:00 Urine pH 5.5 (5.0-8.0) 11/09/22 07:00 Ur Specific [place] 1.026 (1.001-1.035) 11/09/22 07:00 Urine Protein Trace (Negative) H 11/09/22 07:00 Urine Glucose (UA) Negative (Negative) 11/09/22 07:00 Urine Ketones Negative (Negative) 11/09/22 07:00 Urine Blood Negative (Negative) 11/09/22 07:00 Urine Nitrite Negative (Negative) 11/09/22 07:00 Urine Bilirubin Negative (Negative) 11/09/22 07:00 Urine Urobilinogen 2.0 mg/dL (<2.0) 11/09/22 07:00 Ur Leukocyte Esterase Negative (Negative) 11/09/22 07:00 Urine WBC 4 /hpf (0-5) 11/09/22 07:00 Amorphous Sediment Few /hpf (None) H 11/09/22 07:00 Urine Mucus Occasional /hpf (None) H 11/09/22 07:00 Urine Opiates Screen Not Detected (NotDetected) 11/09/22 19:08 Ur Oxycodone Screen Not Detected (NotDetected) 11/09/22 19:08 Urine Methadone Screen Not Detected (NotDetected) 11/09/22 19:08 Ur Propoxyphene Screen Not Detected (NotDetected) 11/09/22 19:08 Ur Barbiturates Screen Not Detected (NotDetected) 11/09/22 19:08 U Tricyclic Antidepress Not Detected (NotDetected) 11/09/22 19:08 Ur Phencyclidine Scrn Not Detected (NotDetected) 11/09/22 19:08 Ur Amphetamines Screen Not Detected (NotDetected) 11/09/22 19:08 U Methamphetamines Scrn Not Detected (NotDetected) 11/09/22 19:08 U Benzodiazepines Scrn Not Detected (NotDetected) 11/09/22 19:08 Urine Cocaine Screen Not Detected (NotDetected) 11/09/22 19:08 U Marijuana (THC) Screen Not Detected (NotDetected) 11/09/22 19:08 Coronavirus (PCR) Not Detected (Not Detectd) 11/09/22 18:51 Assessment Major depressive disorder, recurrent, severe, with anxious features Plan: -Patient continues to meet criteria for inpatient psychiatric admission for symptom stabilization and safety. Patient has signed adult voluntary form and medication consent and was placed in patient's chart. -Medications: Increase Remeron to 15 mg by mouth at bedtime for depression Lexapro 10 mg by mouth daily for depression/anxiety -Vistaril for anxiety -SW on board for discharge planning. Encouraged the patient to participate in milieu.
[2022-11-11] MEDS: hydrOXYzine pamoate 25 MG CAP PO PRN (16:48)
[2022-11-11] MEDS: LORazepam 1 MG TAB PO PRN (18:20)
[2022-11-11 19:06] LABS: Glucose,Whole Blood 100 mg/dL (70-110)
[2022-11-11] MEDS: LINAGLIPTIN 5 MG TABLET PO SCH (20:42)
[2022-11-11] MEDS ORDERED: MIRTAZAPINE 15 MG TAB PO SCH (21:00)
--- NOTE | 2022-11-12 00:25 | P.PN ---
Progress Note - Text Progress Note Date: 11/11/22 patient said he feels fine and does not medical evaluation, refused eval at this time
[2022-11-12 07:55] LABS: Glucose,Whole Blood 92 mg/dL (70-110)
[2022-11-12] MEDS ORDERED: DULoxetine HCL 30 MG CAPSULE.DR PO SCH (09:00)
[2022-11-12] MEDS: ESCITALOPRAM 10 MG TAB PO SCH (09:48)
[2022-11-12] MEDS: glipiZIDE 10 MG TAB PO SCH ×2 (09:49→20:42)
[2022-11-12] MEDS: PIOGLITAZONE 30 MG TAB PO SCH (09:49)
[2022-11-12] MEDS: metFORMIN 500 MG TAB PO SCH ×2 (09:49→20:42)
[2022-11-12] MEDS: lisinopriL 20 MG TAB PO SCH (09:50)
--- NOTE | 2022-11-12 11:32 | P.PN ---
Progress Note - Text Progress Note Date: 11/12/22 Interval History: Patient was seen resting in bed and was directable and agreeable to speak with marketing copywriter in the office. Currently, the patient is reporting severe depression and anxiety. He states he is unable to function and is not feeling good. He reports that he does not feel safe to return home. He denies any suicidal or homicidal ideation however he reports he is going to "waste away." He remains isolative to himself in his room. He does not attend groups. He reports generalized body pain and difficulty with sleep. He states he has been tearful and upset. Reports significant anhedonia. He has been adherent with his medications and is not reporting side effects. He was encouraged to attend groups and be more involved in milieu therapy. Mental Status Exam: General Appearance: Patient appears to be stated age is alert, directable, and cooperative. Behavior: Patient is displaying slower psychomotor activity. Crying. Speech: Patient's speech is fluent and nonpressured. Monotone. Mood/Affect: Mood is "Not good at all." Affect is tearful, flat, anxious. Suicidality/Homicidality: Patient denies having any suicidal or homicidal ideation intent or plan. Perceptions: Patient denies any visual hallucinations and denies any auditory hallucinations Though content/process: Dysphoric, anxious. Memory and concentration: AOX3, grossly intact for the purposes of this session Judgment and insight: Fair Vital Signs Temp 97.4 F L 11/12/22 06:28 Pulse 70 11/12/22 06:28 Resp 16 11/12/22 06:28 BP 105/51 11/12/22 06:28 Pulse Ox 96 11/10/22 01:49 FiO2 Laboratory Results WBC 6.8 k/uL (3.8-10.6) 11/11/22 07:15 RBC 4.80 m/uL (4.30-5.90) 11/11/22 07:15 Hgb 14.7 gm/dL (13.0-17.5) 11/11/22 07:15 Hct 43.8 % (39.0-53.0) 11/11/22 07:15 MCV 91.4 fL (80.0-100.0) 11/11/22 07:15 MCH 30.7 pg (25.0-35.0) 11/11/22 07:15 MCHC 33.6 g/dL (31.0-37.0) 11/11/22 07:15 RDW 15.7 % (11.5-15.5) H 11/11/22 07:15 Plt Count 248 k/uL (150-450) 11/11/22 07:15 MPV 8.0 11/11/22 07:15 Neutrophils % 64 % 11/11/22 07:15 Lymphocytes % 23 % 11/11/22 07:15 Monocytes % 6 % 11/11/22 07:15 Eosinophils % 4 % 11/11/22 07:15 Basophils % 0 % 11/11/22 07:15 Neutrophils # 4.3 k/uL (1.3-7.7) 11/11/22 07:15 Lymphocytes # 1.6 k/uL (1.0-4.8) 11/11/22 07:15 Monocytes # 0.4 k/uL (0-1.0) 11/11/22 07:15 Eosinophils # 0.2 k/uL (0-0.7) 11/11/22 07:15 Basophils # 0.0 k/uL (0-0.2) 11/11/22 07:15 Sodium 143 mmol/L (137-145) 11/11/22 07:15 Potassium 4.2 mmol/L (3.5-5.1) 11/11/22 07:15 Chloride 107 mmol/L (98-107) 11/11/22 07:15 Carbon Dioxide 25 mmol/L (22-30) 11/11/22 07:15 Anion Gap 11 mmol/L 11/11/22 07:15 BUN 12 mg/dL (9-20) 11/11/22 07:15 Creatinine 0.86 mg/dL (0.66-1.25) 11/11/22 07:15 Est GFR (CKD-EPI)AfAm >90 (>60 ml/min/1.73 sqM) 11/11/22 07:15 Est GFR (CKD-EPI)NonAf 83 (>60 ml/min/1.73 sqM) 11/11/22 07:15 Glucose 61 mg/dL (74-99) L 11/11/22 07:15 POC Glucose (mg/dL) 92 mg/dL (70-110) 11/12/22 07:54 POC Glu Cell Feed Department Supervisor ID Silvia Miller 11/12/22 07:[address] Glu mg/dL 140 11/11/22 07:15 Hemoglobin A1c 6.5 % (0.0-6.0) H 11/11/22 07:15 Calcium 9.5 mg/dL (8.4-10.2) 11/11/22 07:15 Total Bilirubin 0.5 mg/dL (0.2-1.3) 11/11/22 07:15 AST 25 U/L (17-59) 11/11/22 07:15 ALT 20 U/L (4-49) 11/11/22 07:15 Alkaline Phosphatase 63 U/L (38-126) 11/11/22 07:15 Total Protein 7.1 g/dL (6.3-8.2) 11/11/22 07:15 Albumin 4.1 g/dL (3.5-5.0) 11/11/22 07:15 Triglycerides 93.30 mg/dL (0.00-149.00) 11/11/22 07:15 Cholesterol 150.00 mg/dL (0.00-200.00) 11/11/22 07:15 LDL Cholesterol, Calc 86.6 mg/dL (0.0-131.0) 11/11/22 07:15 VLDL Cholesterol, Calc 18.66 mg/dL (5.00-40.00) 11/11/22 07:15 HDL Cholesterol 44.70 mg/dL (40.00-60.00) 11/11/22 07:15 Cholesterol/HDL Ratio 3.36 Ratio 11/11/22 07:15 TSH 1.320 mIU/L (0.465-4.680) 11/11/22 07:15 Urine Color Yellow 11/09/22 07:00 Urine Appearance Turbid (Clear) 11/09/22 07:00 Urine pH 5.5 (5.0-8.0) 11/09/22 07:00 Ur Specific [place] 1.026 (1.001-1.035) 11/09/22 07:00 Urine Protein Trace (Negative) H 11/09/22 07:00 Urine Glucose (UA) Negative (Negative) 11/09/22 07:00 Urine Ketones Negative (Negative) 11/09/22 07:00 Urine Blood Negative (Negative) 11/09/22 07:00 Urine Nitrite Negative (Negative) 11/09/22 07:00 Urine Bilirubin Negative (Negative) 11/09/22 07:00 Urine Urobilinogen 2.0 mg/dL (<2.0) 11/09/22 07:00 Ur Leukocyte Esterase Negative (Negative) 11/09/22 07:00 Urine WBC 4 /hpf (0-5) 11/09/22 07:00 Amorphous Sediment Few /hpf (None) H 11/09/22 07:00 Urine Mucus Occasional /hpf (None) H 11/09/22 07:00 Urine Opiates Screen Not Detected (NotDetected) 11/09/22 19:08 Ur Oxycodone Screen Not Detected (NotDetected) 11/09/22 19:08 Urine Methadone Screen Not Detected (NotDetected) 11/09/22 19:08 Ur Propoxyphene Screen Not Detected (NotDetected) 11/09/22 19:08 Ur Barbiturates Screen Not Detected (NotDetected) 11/09/22 19:08 U Tricyclic Antidepress Not Detected (NotDetected) 11/09/22 19:08 Ur Phencyclidine Scrn Not Detected (NotDetected) 11/09/22 19:08 Ur Amphetamines Screen Not Detected (NotDetected) 11/09/22 19:08 U Methamphetamines Scrn Not Detected (NotDetected) 11/09/22 19:08 U Benzodiazepines Scrn Not Detected (NotDetected) 11/09/22 19:08 Urine Cocaine Screen Not Detected (NotDetected) 11/09/22 19:08 U Marijuana (THC) Screen Not Detected (NotDetected) 11/09/22 19:08 Coronavirus (PCR) Not Detected (Not Detectd) 11/09/22 18:51 Assessment Major depressive disorder, recurrent, severe, with anxious features Plan: -Patient continues to meet criteria for inpatient psychiatric admission for symptom stabilization and safety. Patient has signed adult voluntary form and medication consent and was placed in patient's chart. -Medications: Continue Remeron 15 mg by mouth at bedtime for depression Continue Lexapro 10 mg by mouth daily for depression/anxiety Start Klonopin 0.25 mg twice a day for anxiety - Counseled patient on concern for falls. -EKG - 428 ms NSR with 1st degree AV block -Vistaril for anxiety -SW on board for discharge planning. Encouraged the patient to participate in milieu.
[2022-11-12] MEDS: MIRTAZAPINE 15 MG TAB PO SCH (20:42)
[2022-11-12] MEDS: clonazePAM 0.5 MG TAB PO SCH (20:42)
[2022-11-12] MEDS: LINAGLIPTIN 5 MG TABLET PO SCH (20:43)
[2022-11-12] MEDS ORDERED: MIRTAZAPINE 15 MG TAB PO SCH (21:00)
--- NOTE | 2022-11-13 01:10 | P.PN ---
Progress Note - Text Progress Note Date: 11/12/22 patient declined medical eval
[2022-11-13 08:00] LABS: Glucose,Whole Blood 90 mg/dL (70-110)
[2022-11-13] MEDS: glipiZIDE 10 MG TAB PO SCH ×2 (09:18→20:52)
[2022-11-13] MEDS: metFORMIN 500 MG TAB PO SCH ×2 (09:18→20:51)
[2022-11-13] MEDS: PIOGLITAZONE 30 MG TAB PO SCH (09:18)
[2022-11-13] MEDS: ESCITALOPRAM 10 MG TAB PO SCH (09:19)
[2022-11-13] MEDS: clonazePAM 0.5 MG TAB PO SCH ×2 (09:19→20:51)
[2022-11-13] MEDS: lisinopriL 20 MG TAB PO SCH (09:19)
--- NOTE | 2022-11-13 11:48 | P.PN ---
Progress Note - Text Progress Note Date: 11/13/22 Interval History: Patient was seen resting in bed and was directable and agreeable to speak with typewriter assembly and parts inspector in the office. He moves slowly with psychomotor retardation. Patient continues to appear depressed. He says that his mood is "scared". He worries about panic and his depression. He says he is having panic attacks with the most frequent panic attack being yesterday. The medication was slightly helpful. He reports feeling profoundly hopeless about his situation and worries that he will never improved. Patient has significant negative ruminations about himself and his health. He expresses that he "no longer want to go on like this" and endorses suicidal ideation. However, he denies current plan although he is also unable to recall or express any helpful coping skills. This provider did "panic" meditation with patient. He was recommended to use this 3 times a day t o help with panic and control his breathing. He was encouraged to request Vistaril if needed for anxiety. He remains isolative to himself in his room. He does not attend groups despite being encouraged to do so. He continues to report significant anhedonia. Spoke with his Jeimy over the phone with patient's permission. Jeimy says that patient had done well on fluoxetine for many years but has not been doing so well on the Cymbalta and this was changed one week ago to Lexapro. Patient and were provided psychoedication, including on the length of time it takes for these medications to be effective in an elderly person. They are both frustrated that he is not feeling well. Jeimy expresses that she does not feel he is safe to be home and is not comfortable with this until he is less acutely anxious and acutely depressed. Currently, the patient is reporting severe depression and anxiety. He states he is unable to function. He denies any homicidal ideation. He has been adherent with his medications and is not reporting side effects, including dizziness, difficulty walking, or confusion. He was encouraged to attend groups and be more involved in milieu therapy. Mental Status Exam: General Appearance: Patient appears to be stated age is alert, directable, and cooperative. Behavior: Patient is displaying slower psychomotor activity. Tearful. Speech: Patient's speech is fluent and nonpressured. Monotone. Mood/Affect: Mood is "scared." Affect is tearful, anxious. Suicidality/Homicidality: Patient denies homicidal ideation intent or plan. Endorses suicidal ideation without plan Perceptions: Patient denies any visual hallucinations and denies any auditory hallucinations Though content/process: Dysphoric, anxious. Memory and concentration: AOX3, grossly intact for the purposes of this session Judgment and insight: Fair Vital Signs Temp 97.2 F L 11/13/22 06:40 Pulse 69 11/13/22 06:40 Resp 16 11/13/22 06:40 BP 115/52 11/13/22 06:40 Pulse Ox 96 11/10/22 01:49 FiO2 Assessment Major depressive disorder, recurrent, severe, with anxious features Plan: -Patient continues to meet criteria for inpatient psychiatric admission for symptom stabilization and safety. Patient has signed adult voluntary form and medication consent and was placed in patient's chart. -Medications: Continue Remeron 15 mg by mouth at bedtime for depression Continue Lexapro 10 mg by mouth daily for depression/anxiety Continue Klonopin 0.25 mg twice a day for anxiety - Counseled patient on concern for falls. Will await medical evaluation before considering a stimulant -EKG - 428 ms NSR with 1st degree AV block -Vistaril for anxiety -SW on board for discharge planning. Encouraged the patient to participate in milieu.
[2022-11-13] MEDS: MIRTAZAPINE 15 MG TAB PO SCH (20:52)
[2022-11-13] MEDS: traZODone HCL 100 MG TAB PO PRN (20:52)
[2022-11-13] MEDS: LINAGLIPTIN 5 MG TABLET PO SCH (20:52)
[2022-11-14 08:01] LABS: Glucose,Whole Blood 86 mg/dL (70-110)
[2022-11-14] MEDS: clonazePAM 0.5 MG TAB PO SCH (09:39)
[2022-11-14] MEDS: ESCITALOPRAM 10 MG TAB PO SCH (09:39)
[2022-11-14] MEDS: metFORMIN 500 MG TAB PO SCH ×2 (09:40→21:03)
[2022-11-14] MEDS: PIOGLITAZONE 30 MG TAB PO SCH (09:41)
[2022-11-14] MEDS: glipiZIDE 10 MG TAB PO SCH ×2 (09:41→21:03)
[2022-11-14] MEDS: lisinopriL 20 MG TAB PO SCH (09:41)
--- NOTE | 2022-11-14 16:30 | P.MDCNMH ---
History of Present Illness H&P Date: 11/14/22 Chief Complaint: medical management 77-year-old man with medical history of suicidal ideation from major depressive disorder, hypertension, hyperlipidemia presented for suicidal ideation after medication change. Psychiatry admitted the patient to the mental health unit. Medicine was consulted for medical management and clearance. Patient has no complaints of this time, is doing well. Says he wants to "get back to happy [place]". He denies headaches, chest pain, palpitations, nausea, vomiting, numbness/weakness of extremities, dyspnea, cough, fevers, chills, abdominal pain, constipation, diarrhea, dysuria, dyschezia. Upon my evaluation, patient is hemodynamically stable, but with a blood pressure 179/76, heart rate 105. Lab work from this hospitalization is reviewed: CBC, basic metabolic panel, liver function tests, lipid panel, TSH are all within normal limits. He underwent EKG on 11/10 which demonstrated normal sinus rhythm with first-degree AV block. All Systems reviewed and pertinent positives and negatives noted in HPI, all other symptoms are negative Gen: in no apparent distress, resting comfortably in bed Eyes: PERRL, no scleral injection or icterus HENT: normocephalic, atraumatic, good hearing acuity, moist mucous membranes Neck: no tracheal deviation, full range of motion Resp: good air exchange, breathing comfortably with no accessory muscle use, no tactile fremitus CVS: good distal perfusion x 4, no pitting edema GI: soft, NTTP, ND, no hepatosplenomegaly : no suprapubic tenderness, no CVAT, myles catheter not present MSK: no clubbing, no cyanosis, no noted contractures of extremities Skin: no noted rashes, petechiae; temperature of skin is appropriate Neuro: moving all extremities without signs of weakness, CN II-XII intact Psych: cooperative, euthymic mood, insight and judgment intact Assessment: Hypertension Diabetes2 Hyperlipidemia Major depressive disorder with suicidal ideation Plan: Vital signs reviewed and noted in HPI Labwork reviewed and noted in HPI EKG was personally interpreted noted in HPI Patient will be started on amlodipine 5 mg daily in addition to his lisinopril 20 mg daily for high blood pressure Patient is full code Past Medical History Past Medical History: Diabetes Mellitus, Hypertension Additional Past Medical History / Comment(s): Hard of hearing - hearing aids bilateral History of Any Multi-Drug Resistant Organisms: None Reported Past Surgical History: Orthopedic Surgery Additional Past Surgical History / Comment(s): Bilateral knee replacement. Right foot. Right shoulder. Past Anesthesia/Blood Transfusion Reactions: No Reported Reaction Smoking Status: Never smoker - Past Family History Mother History Unknown: Yes Father History Unknown: Yes Family Medical History: Cancer Medications and Allergies Home Medications Medication Instructions Recorded Confirmed Type Pioglitazone [Actos] 30 mg PO DAILY 05/21/16 11/09/22 History Quinapril HCl [Accupril] 20 mg PO DAILY 05/21/16 11/09/22 History metFORMIN HCL [Glucophage] 1,000 mg PO BID 05/21/16 11/09/22 History sitaGLIPtin [Januvia] 100 mg PO HS 05/21/16 11/09/22 History Albuterol Inhaler [Ventolin Hfa 1 - 2 puff INHALATION RT-Q6H PRN 04/21/22 11/09/22 History Inhaler] DULoxetine HCL [Cymbalta] See Taper PO DIRECTED 11/09/22 11/09/22 History Escitalopram [Lexapro] 10 mg PO DAILY 11/09/22 11/09/22 History Propranolol LA [Inderal LA] 60 mg PO DAILY PRN 11/09/22 11/09/22 History glipiZIDE [Glucotrol] 10 mg PO BID 11/09/22 11/09/22 History hydrOXYzine HCL [Atarax] 25 mg PO TID 11/09/22 11/09/22 History Allergies Allergy/AdvReac Type Severity Reaction Status Date / Time No Known Allergies Allergy Verified 11/09/22 22:40 Physical Exam Osteopathic Statement: *. No significant issues noted on an osteopathic structural exam other than those noted in the History and Physical/Consult. Vitals: Vital Signs Temp Pulse Pulse Resp BP Pulse Ox 11/14/22 11:05 105 H 16 179/76 11/14/22 09:30 94 16 164/75 11/14/22 06:00 98.1 F 74 18 109/53 95 Cranial Nerve Examination - Cranial Nerves Cranial Nerve II- Optic: Intact Cranial Nerve III- Oculomotor: Intact Cranial Nerve IV- Trochlear: Intact Cranial Nerve V- Trigeminal: Intact Cranial Nerve - Abducens: Intact Cranial Nerve VII- Facial: Intact Cranial Nerve VIII- Auditory: Intact Cranial Nerve IX- Glossopharyngeal: Intact Cranial Nerve X- Vagus: Intact Cranial Nerve XI- Accessory: Intact Cranial Nerve XII- Hypoglossal: Intact Results CBC & Chem 7: 11/11/22 07:15 11/11/22 07:15
[2022-11-14] MEDS: amLODIPine 5 MG TAB PO SCH (16:46)
--- NOTE | 2022-11-14 16:56 | P.PN ---
Progress Note - Text Progress Note Date: 11/14/22 Interval History: Patient was seen resting in bed and was directable and agreeable to speak with parts data writer. He moves slowly with psychomotor retardation. Patient says he is "better". He states that he has been feeling less anxious and that his mood has been noted to be improving. He says a large part of this is because he was able to speak to his today during visiting hour. He is less fixated on his concerns for health and says he is feeling slightly more hopeful today. He says he is feeling tired today and has been resting. He rates his anxiety to be 4 out of 10. He reported trouble sleeping last night after having received trazodone. He denies suicidal ideation and plan. He expresses that he sometimes has intent but that he starting to appreciate that he might be able to improve. He remains isolative to himself in his room. He does not attend groups despite being encouraged to do so. Patient was seen by medical team and blood pressure medications were adjusted. He denies any homicidal ideation. He has been adherent with his medications and is not reporting side effects, including dizziness, difficulty walking, or confusion. Mental Status Exam: General Appearance: Patient appears to be stated age is alert, directable, and cooperative. Behavior: Patient is displaying slower psychomotor activity. Speech: Patient's speech is fluent and nonpressured. Monotone. Mood/Affect: Mood is "better." Affect is incongruent, tearful, anxious. Suicidality/Homicidality: Patient denies homicidal ideation intent or plan. Denies suicidal ideation Perceptions: Patient denies any visual hallucinations and denies any auditory hallucinations Though content/process: no delusions or paranoia. Linear and goal-directed Memory and concentration: AOX3, grossly intact for the purposes of this session Judgment and insight: Fair Assessment Major depressive disorder, recurrent, severe, with anxious features Plan: -Patient continues to meet criteria for inpatient psychiatric admission for symptom stabilization and safety. Patient has signed adult voluntary form and m edication consent and was placed in patient's chart. -Medications: Continue Remeron 15 mg by mouth at bedtime for depression Continue Lexapro 10 mg by mouth daily for depression/anxiety Decrease Klonopin to 0.25 mg daily for anxiety. Likely interfering with sleep Trazodone 100 mg qHS PRN for sleep -Vistaril for anxiety -SW on board for discharge planning. Encouraged the patient to participate in milieu. Likely discharge Wednesday if patient continues to improve
[2022-11-14] MEDS: traZODone HCL 100 MG TAB PO PRN (21:03)
[2022-11-14] MEDS: LINAGLIPTIN 5 MG TABLET PO SCH (21:03)
[2022-11-14] MEDS: MIRTAZAPINE 15 MG TAB PO SCH (21:03)
[2022-11-15 06:40] VITALS: BP 116/57; PULSE 92; RESP 18; TEMP 97.1
[2022-11-15 08:01] LABS: Glucose,Whole Blood 61 mg/dL (70-110)
[2022-11-15 08:24] LABS: Glucose,Whole Blood 117 mg/dL (70-110)
[2022-11-15] MEDS ORDERED: clonazePAM 0.5 MG TAB PO SCH (09:00)
[2022-11-15] MEDS ORDERED: PIOGLITAZONE 30 MG TAB PO SCH (09:00)
[2022-11-15] MEDS: lisinopriL 20 MG TAB PO SCH (09:51)
[2022-11-15] MEDS: metFORMIN 500 MG TAB PO SCH ×2 (09:51→21:46)
[2022-11-15] MEDS: ESCITALOPRAM 10 MG TAB PO SCH (09:51)
[2022-11-15] MEDS: glipiZIDE 5 MG TAB PO SCH ×2 (09:52→21:46)
[2022-11-15] MEDS: PIOGLITAZONE 15 MG TAB PO SCH (09:52)
[2022-11-15] MEDS: amLODIPine 5 MG TAB PO SCH (09:54)
[2022-11-15] MEDS ORDERED: traZODone HCL 50 MG TAB PO PRN (16:11)
--- NOTE | 2022-11-15 16:12 | P.PN ---
Progress Note - Text Progress Note Date: 11/15/22 Interval History: Patient was seen resting in bed and was directable and agreeable to speak with life underwriter. He moves slowly with psychomotor retardation. Patient says he is "much better". However, he says he is feeling tired today and has been resting. He says he had poor sleep last night and was agreeable with increase in trazodone. He asks "what do I have to keep me level ". Discussed medications with him and compliance. He endorses that his anxiety is improved significantly and he is feeling more future oriented. He says he is feeling excited to return home to his tomorrow. He denies suicidal ideation and plan. He is observed to be growing less isolative and participating in group today. He denies any homicidal ideation. He has been adherent with his medications and is not reporting side effects, including dizziness, difficulty walking, or confusion. Mental Status Exam: General Appearance: Patient appears to be stated age is alert, directable, and cooperative. Behavior: Patient is displaying slower psychomotor activity. Speech: Patient's speech is fluent and nonpressured. Monotone. Mood/Affect: Mood is "better." Affect is incongruent, tearful, anxious. Suicidality/Homicidality: Patient denies homicidal ideation intent or plan. Denies suicidal ideation Perceptions: Patient denies any visual hallucinations and denies any auditory hallucinations Though content/process: no delusions or paranoia. Linear and goal-directed Memory and concentration: AOX3, grossly intact for the purposes of this session Judgment and insight: Fair Assessment Major depressive disorder, recurrent, severe, with anxious features Plan: -Patient continues to meet criteria for inpatient psychiatric admission for symptom stabilization and safety. Patient has signed adult voluntary form and medication consent and was placed in patient's chart. -Medications: Continue Remeron 15 mg by mouth at bedtime for depression Continue Lexapro 10 mg by mouth daily for depression/anxiety Stop Klonopin Increase Trazodone to 150 mg qHS PRN for sleep -Vistaril for anxiety -SW on board for discharge planning. Encouraged the patient to participate in milieu. Likely discharge Wednesday if patient continues to improve
[2022-11-15] MEDS: MIRTAZAPINE 15 MG TAB PO SCH (21:46)
[2022-11-15] MEDS: LINAGLIPTIN 5 MG TABLET PO SCH (21:46)
[2022-11-16 07:57] LABS: Glucose,Whole Blood 113 mg/dL (70-110)
[2022-11-16] MEDS: lisinopriL 20 MG TAB PO SCH (09:39)
[2022-11-16] MEDS: amLODIPine 5 MG TAB PO SCH (09:39)
[2022-11-16] MEDS: glipiZIDE 5 MG TAB PO SCH (09:39)
[2022-11-16] MEDS: metFORMIN 500 MG TAB PO SCH (09:39)
[2022-11-16] MEDS: PIOGLITAZONE 15 MG TAB PO SCH (09:39)
[2022-11-16] MEDS: ESCITALOPRAM 10 MG TAB PO SCH (09:50)
--- NOTE | 2022-11-16 12:02 | P.DS ---
Providers Date of admission: 11/09/22 23:46 Expected date of discharge: 11/16/22 Attending physician: Kojo Armenta MD Consults: 11/10/22 00:06 Consult Physician Routine Consulting Provider: Abebe Physician Consult Reason/Comments: H&P and medical Do you want consulting provider notified?: Yes Primary care physician: Francesco Lance - Discharge Diagnosis(es) (1) Major depressive disorder, recurrent episode with anxious distress Current Visit: Yes Status: Acute Priority: High Hospital Course: Patient had his psychiatric H&P done by Dr. Kojo Armenta on 11/10/2022 and general medical H&P done by Dr.Aiman Pa Agarwal on 11/11/2022. After his psychiatric H&P, he was started on Lexapro 10 mg a day and was continued on his home medication of Invega and Vistaril when necessary. He slowly started to feel better and got free of suicide thoughts. He managed the medications well without any adverse effect. He was also continued on his home medications for diabetes and hypertension. He attended the groups quite sparingly and stayed in his room most of the time. He did not socialize much with peers or staff. His condition was discussed by the treatment team this morning and it was agreed that he has speech his baseline condition and is ready to go home. Mental status examination: This is a white ambulatory male with adequate hygiene. He walks with short stepped gait. He said he has bunions, his feet hurt and is not able to walk well. He does not show any psychomotor agitation or retardation. His speech is spontaneous soft and goal-directed. But it is as short as possible. His mood is dull to euthymic and affect is appropriate to the thought content. He denies hallucinations delusional thinking suicide and homicide thoughts. His sensorium is clear. Patient was advised to take his medications as prescribed, continue with outpatient treatment, continue not to abuse drugs and alcohol. He agreed with all these. Assessment: Please see hospital course under Mental status examination section. Health Concerns: Hypertension, diabetes, poor ambulation. Pertinent Studies: None Procedures: None Patient Condition at Discharge: Stable Plan - Discharge Summary New Discharge Prescriptions: New Mag Hydrox/Al Hydrox/Simeth [Maalox] 30 ml PO Q4HR PRN ml PRN Reason: Gi Upset Acetaminophen Tab [Tylenol] 650 mg PO Q4HR PRN tab PRN Reason: Pain/Discomfort Magnesium Hydroxide [Milk of Magnesia Concentrate] 2,400 mg PO DAILY PRN ml PRN Reason: Constipation hydrOXYzine pamoate [Vistaril] 25 mg PO Q8HR PRN cap PRN Reason: Anxiety Continue metFORMIN HCL [Glucophage] 1,000 mg PO BID sitaGLIPtin [Januvia] 100 mg PO HS Pioglitazone [Actos] 30 mg PO DAILY glipiZIDE [Glucotrol] 10 mg PO BID Escitalopram [Lexapro] 10 mg PO DAILY 30 Days #30 tab Albuterol Inhaler [Ventolin Hfa Inhaler] 1 - 2 puff INHALATION RT-Q6H PRN PRN Reason: Shortness Of Breath Propranolol LA [Inderal LA] 60 mg PO DAILY PRN 30 Days #30 cap PRN Reason: Anxiety Discontinued Quinapril HCl [Accupril] 20 mg PO DAILY DULoxetine HCL [Cymbalta] See Taper PO DIRECTED hydrOXYzine HCL [Atarax] 25 mg PO TID Discharge Medication List Pioglitazone [Actos] 30 mg PO DAILY 05/21/16 [History] metFORMIN HCL [Glucophage] 1,000 mg PO BID 05/21/16 [History] sitaGLIPtin [Januvia] 100 mg PO HS 05/21/16 [History] Albuterol Inhaler [Ventolin Hfa Inhaler] 1 - 2 puff INHALATION RT-Q6H PRN 04/21/22 [History] glipiZIDE [Glucotrol] 10 mg PO BID 11/09/22 [History] Acetaminophen Tab [Tylenol] 650 mg PO Q4HR PRN tab 11/16/22 [Rx] Escitalopram [Lexapro] 10 mg PO DAILY 30 Days #30 tab 11/16/22 [Rx] Mag Hydrox/Al Hydrox/Simeth [Maalox] 30 ml PO Q4HR PRN ml 11/16/22 [Rx] Magnesium Hydroxide [Milk of Magnesia Concentrate] 2,400 mg PO DAILY PRN ml 11/16/22 [Rx] Propranolol LA [Inderal LA] 60 mg PO DAILY PRN 30 Days #30 cap 11/16/22 [Rx] hydrOXYzine pamoate [Vistaril] 25 mg PO Q8HR PRN cap 11/16/22 [Rx] Follow up Appointment(s)/Referral(s): [facility] [Outside] - 11/18/22 10:00 am (11/18/2022 10:00AM - 11:00AM AM[facility] 11/25/2022 11:00AM - 12:00PM DIANA LUQUE ) Francesco Lance MD [Primary Care Provider] - 1-2 days Activity/Diet/Wound Care/Special Instructions: Avoid the use of street drugs and alcohol. Take all medications as prescribed. When you are in need of refills on your medications, please contact your medical provider and/or outpatient psychiatrist to have this done. Please go to scheduled outpatient appointments for aftercare treatment. If symptoms return or become worse, call the crisis line at and/or go to the nearest emergency room for evaluation.
== END 2022-11-16 14:21 | disposition home or self-care (01) | DRG 885 ==
LOC: EC 17:47 → 3MHU 23:46
PROVIDERS: ADMIT Psychiatry & Neurology Psychiatry; ATTEND Psychiatry & Neurology Psychiatry
DX: F33.2 Major depressive disorder, recurrent severe without psychotic features (principal); R45.851 Suicidal ideations; I10 Essential (primary) hypertension; I44.0 Atrioventricular block, first degree; F41.9 Anxiety disorder, unspecified; M21.619 Bunion of unspecified foot; Z79.84 Long term (current) use of oral hypoglycemic drugs; Z87.891 Personal history of nicotine dependence; Z96.653 Presence of artificial knee joint, bilateral; H91.93 Unspecified hearing loss, bilateral; Z97.4 Presence of external hearing-aid; Z20.822 Contact with and (suspected) exposure to COVID-19; Z79.899 Other long term (current) drug therapy; E78.5 Hyperlipidemia, unspecified
CPT/HCPCS: 80053; 80061; 80306; 81001; 82075; 83036; 84443; 85025; 87635; 99285

== ENCOUNTER 2022-11-20 21:28 | Inpatient (IN) | payer MEDICARE ==
--- NOTE | 2022-11-20 22:25 | ED ---
General Adult HPI - General Chief complaint: Psychiatric Symptoms Stated complaint: Mental Health Time Seen by Provider: 11/20/22 21:36 Source: patient, family, RN notes reviewed Mode of arrival: ambulatory Limitations: no limitations - History of Present Illness Initial comments: 77-year-old male presents to the emergency department with for suicidal ideation. Patient states that he wanted to "get in the car, pay the toll for the bridge and jump off it." He states that he was recently admitted for suicidal ideation and plan. He states that he has been having suicidal at ideation since he is been discharged from the hospital. He states that he was lying to get help last time but states "this time I am serious." Denies hallucinations, del usions. Denies dysuria, fever. PMH includes T2DM. - Related Data Home Medications Medication Instructions Recorded Confirmed RX: Pioglitazone [Actos] 30 mg PO DAILY 05/21/16 11/20/22 RX: metFORMIN HCL [Glucophage] 1,000 mg PO BID 05/21/16 11/20/22 RX: sitaGLIPtin [Januvia] 100 mg PO HS 05/21/16 11/20/22 RX: glipiZIDE [Glucotrol] 10 mg PO BID 11/09/22 11/20/22 Previous Rx's Medication Instructions Recorded RX: FLUoxetine HCL [PROzac] 60 mg PO DAILY 30 Days #90 cap 11/30/22 RX: QUEtiapine [SEROquel] 25 mg PO HS 30 Days #30 tab 11/30/22 RX: clonazePAM [KlonoPIN] 0.25 mg PO BID 30 Days #60 tab 11/30/22 Allergies Allergy/AdvReac Type Severity Reaction Status Date / Time No Known Allergies Allergy Verified 11/21/22 05:10 Review of Systems ROS Statement: Those systems with pertinent positive or pertinent negative responses have been documented in the HPI. ROS Other: All systems not noted in ROS Statement are negative. Past Medical History Past Medical History: Diabetes Mellitus, Hypertension Additional Past Medical History / Comment(s): Hard of hearing - hearing aids bilateral History of Any Multi-Drug Resistant Organisms: None Reported Past Surgical History: Orthopedic Surgery Additional Past Surgical History / Comment(s): Bilateral knee replacement. Right foot. Right shoulder. Past Anesthesia/Blood Transfusion Reactions: No Reported Reaction Past Psychological History: Anxiety, Depression Smoking Status: Never smoker - Past Family History Mother History Unknown: Yes Father History Unknown: Yes Family Medical History: Cancer General Exam Limitations: no limitations General appearance: alert, in no apparent distress Head exam: Present: atraumatic, normocephalic, normal inspection Eye exam: Present: normal appearance, PERRL, EOMI. Absent: scleral icterus, conjunctival injection, periorbital swelling ENT exam: Present: normal exam, mucous membranes moist Neck exam: Present: normal inspection. Absent: tenderness, meningismus, lymphadenopathy Respiratory exam: Present: normal lung sounds bilaterally. Absent: respiratory distress, wheezes, rales, rhonchi, stridor Cardiovascular Exam: Present: regular rate, normal rhythm, normal heart sounds. Absent: systolic murmur, diastolic murmur, rubs, gallop, clicks GI/Abdominal exam: Present: soft, normal bowel sounds. Absent: distended, tenderness, guarding, rebound, rigid Extremities exam: Present: normal inspection Back exam: Present: normal inspection Neurological exam: Present: alert, oriented X3, CN II-XII intact Psychiatric exam: Present: depressed, suicidal ideation Skin exam: Present: warm, dry, intact, normal color. Absent: rash Course Vital Signs 11/20/22 11/21/22 21:30 03:28 Temperature 97.9 F 97.7 F Pulse Rate 68 75 Respiratory 18 16 Rate Blood Pressure 122/87 O2 Sat by Pulse 99 99 Oximetry Medical Decision Making - Medical Decision Making Was pt. sent in by a medical professional or institution (, PA, CRYOGENICS REPAIRER, urgent care, hospital, or prison...) When possible be specific @ -No Did you speak to anyone other than the patient for history (EMS, parent, family, police, friend...)? What history was obtained from this source @ -No Did you review nursing and triage notes (agree or disagree)? Why? @ -I reviewed and agree with nursing and triage notes Were old charts reviewed (outside hosp., previous admission, EMS record, old EKG, old radiological studies, urgent care reports/EKG's, prison records)? Report findings @ -No old charts were reviewed Differential Diagnosis (chest pain, altered mental status, abdominal pain women, abdominal pain men, vaginal bleeding, weakness, fever, dyspnea, syncope, headache, dizziness, GI bleed, back pain, seizure, CVA, palpatations, mental health, musculoskeletal)? @ -not applicable EKG interpreted by me (3pts min.). @ -None X-rays interpreted by me (1pt min.). @ -None done CT interpreted by me (1pt min.). @ -None done U/S interpreted by me (1pt. min.). @ -None done What testing was considered but not performed or refused? (CT, X-rays, U/S, labs)? Why? @ -None What meds were considered but not given or refused? Why? @ -None Did you discuss the management of the patient with other professionals (pr ofessionals i.e. , PA, CRYOGENICS REPAIRER, lab, RT, psych nurse, social media content manager, funeral director, teacher, home lending officer, child support case officer)? Give summary @ -No Was smoking cessation discussed for >3mins.? @ -No Was critical care preformed (if so, how long)? @ -No Were there social determinants of health that impacted care today? How? (Homelessness, low income, unemployed, alcoholism, drug addiction, transportation, low edu. Level, literacy, decrease access to med. care, [facility], rehab)? @ -No Was there de-escalation of care discussed even if they declined (Discuss DNR or withdrawal of care, Hospice)? DNR status @ -No What co-morbidities impacted this encounter? (DM, HTN, Smoking, COPD, CAD, Cancer, CVA, ARF, Chemo, Hep., AIDS, mental health diagnosis, sleep apnea, morbid obesity)? @ -None Was patient admitted / discharged? Hospital course, mention meds given and route, prescriptions, significant lab abnormalities, going to OR and other pertinent info. @ -Patient presented to the emergency department with for suicidal ideation. He states that he has been having suicidal ideation and has a plan. UA showed negative leukocytes, nitrites. No physical etiology suspected. Patient cleared for EPS evaluation. Patient awaiting EPS evaluation and signed out to Dr. Alvarez at 00:13. Undiagnosed new problem with uncertain prognosis? @ -No Drug Therapy requiring intensive monitoring for toxicity (Heparin, Nitro, Insulin, Cardizem)? @ -No Were any procedures done? @ -No Diagnosis/symptom? @ -suicidal ideation Acute, or Chronic, or Acute on Chronic? @ -default Uncomplicated (without systemic symptoms) or Complicated (systemic symptoms)? @ -default Side effects of treatment? @ -No Exacerbation, Progression, or Severe Exacerbation? @ -No Poses a threat to life or bodily function? How? (Chest pain, USA, ID, pneumonia, PE, COPD, DKA, ARF, appy, cholecystitis, CVA, Diverticulitis, Homicidal, Suicidal, threat to staff... and all critical care pts) @ -suicidal - Lab Data Lab Results 11/20/22 11/21/22 Range/Units 22:26 00:12 Urine Color Yellow Urine Appearance Clear (Clear) Urine pH 5.5 (5.0-8.0) Ur Specific [place] 1.019 (1.001-1.035) Urine Protein Negative (Negative) Urine Glucose (UA) Negative (Negative) Urine Ketones Trace H (Negative) Urine Blood Negative (Negative) Urine Nitrite Negative (Negative) Urine Bilirubin Negative (Negative) Urine Urobilinogen <2.0 (<2.0) mg/dL Ur Leukocyte Esterase Negative (Negative) Coronavirus (PCR) Not Detected (Not Detectd) Disposition Clinical Impression: Suicidal ideation Disposition: ADMITTED IP TO THIS [facility] Condition: Stable
[2022-11-20 22:31] LABS: Appearance,Urine Clear (Clear); Bilirubin,Urine Negative (Negative); Blood,Urine Negative (Negative); Color,Urine Yellow; Glucose,Urine (UA) Negative (Negative); Ketones,Urine Trace (Negative); Leukocyte Esterase,Urine Negative (Negative); Nitrite,Urine Negative (Negative); PH, Urine 5.5 (5.0-8.0); Protein,Urine Negative (Negative); Specific Gravity,Urine 1.019 (1.001-1.035); Urobilinogen,Urine <2.0 mg/dL (<2.0)
[2022-11-21] MEDS ORDERED: ZOLPIDEM 5 MG TAB PO STA (01:55)
[2022-11-21] MEDS ORDERED: MAG HYDROX/AL HYDROX/SIMETH 30 ML CUP PO PRN (02:53)
[2022-11-21] MEDS ORDERED: IBUPROFEN 600 MG TAB PO PRN (02:53)
[2022-11-21] MEDS ORDERED: ACETAMINOPHEN TAB 325 MG TAB PO PRN (02:53)
[2022-11-21] MEDS ORDERED: hydrOXYzine HCL 50 MG/ML 1 ML VIAL IM PRN (02:53)
[2022-11-21] MEDS ORDERED: MAGNESIUM HYDROXIDE 2,400 MG/10 ML CUP PO PRN (02:53)
[2022-11-21] MEDS: LORazepam 1 MG TAB PO PRN ×2 (04:13→12:00)
[2022-11-21 07:53] LABS: Glucose,Whole Blood 116 mg/dL (70-110)
[2022-11-21] MEDS ORDERED: NON FORMULARY DRUG (Albuterol Inhaler 90 MCG Puff) INHALATION PRN (08:00)
[2022-11-21] MEDS ORDERED: PROPRANOLOL LA 60 MG CAP.SA.24H PO PRN (09:00)
[2022-11-21] MEDS ORDERED: ESCITALOPRAM 10 MG TAB PO SCH (09:00)
[2022-11-21] MEDS: metFORMIN 500 MG TAB PO SCH ×2 (09:38→21:14)
[2022-11-21] MEDS: glipiZIDE 10 MG TAB PO SCH ×2 (09:38→21:14)
[2022-11-21] MEDS: PIOGLITAZONE 30 MG TAB PO SCH (09:39)
[2022-11-21] MEDS: FLUoxetine HCL 20 MG CAP PO SCH (17:41)
[2022-11-21] MEDS: LINAGLIPTIN 5 MG TABLET PO SCH (21:14)
[2022-11-21] MEDS: diphenhydrAMINE 25 MG CAP PO PRN (21:14)
--- NOTE | 2022-11-22 03:24 | P.PN ---
Progress Note - Text Progress Note Date: 11/22/22 patient sleeping refused medical evaluation
[2022-11-22 06:45] VITALS: RESP 16
[2022-11-22] MEDS: PIOGLITAZONE 30 MG TAB PO SCH (07:30)
[2022-11-22] MEDS: glipiZIDE 10 MG TAB PO SCH ×2 (07:30→21:11)
[2022-11-22] MEDS: metFORMIN 500 MG TAB PO SCH ×2 (07:30→21:12)
[2022-11-22] MEDS: FLUoxetine HCL 20 MG CAP PO SCH (07:30)
[2022-11-22 07:38] LABS: Glucose,Whole Blood 132 mg/dL (70-110)
[2022-11-22] MEDS ORDERED: DEXTROSE 50% SYRINGE 50 ML IVP PRN ×2 (16:52)
--- NOTE | 2022-11-22 17:01 | P.MDCNMH ---
<Agusto Goyal - Last Filed: 11/22/22 16:43> History of Present Illness H&P Date: 11/22/22 History of Presenting Illness: Patient is a 77-year-old male with a past medical history of diabetes mellitus, hypertension, anxiety, and depression. He is currently admitted to inpatient mental health unit under psychiatry team secondary to reports of suicidal ideations. We have been consulted for medical evaluation and completion of medical H&P during this admission. Patient seen and fully evaluated on mental health unit. Patient ambulatory with a steady gait. He was cooperative and answered all questions appropriately. Patient very anxious and agitated. Patient tearful and states he began experiencing increased anxiety approximately 4 months ago and he just can't handle it anymore. Patient states he does not want to live like this anymore. Patient denies having any visual, auditory, or tactile hallucinations. He denies having any homicidal ideations. When asked about suicidal ideations, patient states I can't live like this. Patient denies having any headache, lightheadedness, dizziness, diaphoresis, chest pain, palpitations, shortness of breath, nausea, vomiting, or experiencing any numbness/tingling/weakness/swelling in his extremities. Patient denies any drug or alcohol use and denies any nicotine use. Reviewed labs from previous visit in chart and recent TSH 1.320. Review of systems: Pertinent positives and negatives as discussed in HPI, a complete review of systems was performed and all other systems are negative. Physical exam: Vital signs reviewed and stable. General: Nontoxic, no distress and appears stated age. Derm: Skin warm and dry, normal coloration for ethnicity. Head: Atraumatic, normocephalic and symmetric. Very hard of hearing. Eyes: EOMs intact, no lid lag, and anicteric sclera Mouth: no lip lesions, mucus membranes moist Cardiovascular: regular rate and rhythm with normal S1S2, systolic murmur, positive posterior tibial pulses bilaterally, and cap refill < 2 seconds. Lungs: Respirations even, regular, and unlabored on room air. Lungs CTA bilaterally, no rhonchi, no rales, no wheezing, and no accessory muscle usage. Abdominal: soft, nontender to palpation, no guarding, no appreciable organomegaly Ext: ROM intact. No gross muscle atrophy, no edema, no contractures Neuro: Speech clear, face symmetrical and CN II-XII grossly intact with no noted focal neuro deficits Psych: Alert and oriented to person, place, time, and situation. Very anxious and depressed. Assessment and Plan of Care: Acute [id number] Diabetes mellitus -Blood glucose levels reviewed ranging from 116-132 since admission to mental health unit on 11/21/22. -Patient to continue with glycemic protocol with point of care glucose testing twice daily. -Reviewed home medications, patient to continue with Pioglitazone 30 mg daily, metformin 1000 mg twice daily, and Linogliptan 5 mg nightly. -Most recent hemoglobin A1c was drawn 11/11/22 resulting in 6.5%. Hypertension -Blood pressures controlled throughout hospitalization with systolic pressure ranging from 112-123 and diastolic pressure ranging from 57-87. -Patient to continue daily medication regimen with propranolol 60 mg daily. Anxiety and depression -Resume hydroxyzine 25 mg every 8 hours as needed for anxiety and patient to continue daily medication regimen with fluoxetine 20 mg daily. Suicidal ideation -Suicide precautions. -Management per primary admitting psychiatric team. Thank you for allowing us to participate in the care of this pleasant patient. Do not hesitate to contact us with questions. Someone can be reached from the [facility] hospitalist group all hours of the day at [phone] or via [employer]. Past Medical History Past Medical History: Diabetes Mellitus, Hypertension Additional Past Medical History / Comment(s): Hard of hearing - hearing aids bilateral History of Any Multi-Drug Resistant Organisms: None Reported Past Surgical History: Orthopedic Surgery Additional Past Surgical History / Comment(s): Bilateral knee replacement. Right foot. Right shoulder. Past Anesthesia/Blood Transfusion Reactions: No Reported Reaction Past Psychological History: Anxiety, Depression Smoking Status: Never smoker Past Alcohol Use History: None Reported Additional Past Alcohol Use History / Comment(s): Pt. denies alcohol or drug use. BAT 0/ UDS negative Past Drug Use History: None Reported - Past Family History Mother History Unknown: Yes Father History Unknown: Yes Family Medical History: Cancer Medications and Allergies Home Medications Medication Instructions Recorded Confirmed Type Pioglitazone [Actos] 30 mg PO DAILY 05/21/16 11/20/22 History metFORMIN HCL [Glucophage] 1,000 mg PO BID 05/21/16 11/20/22 History sitaGLIPtin [Januvia] 100 mg PO HS 05/21/16 11/20/22 History Albuterol Inhaler [Ventolin Hfa 1 - 2 puff INHALATION RT-Q6H PRN 04/21/22 11/20/22 History Inhaler] glipiZIDE [Glucotrol] 10 mg PO BID 11/09/22 11/20/22 History Acetaminophen Tab [Tylenol] 650 mg PO Q4HR PRN tab 11/16/22 11/20/22 Rx Escitalopram [Lexapro] 10 mg PO DAILY 30 Days #30 tab 11/16/22 11/20/22 Rx Mag Hydrox/Al Hydrox/Simeth 30 ml PO Q4HR PRN ml 11/16/22 11/20/22 Rx [Maalox] Magnesium Hydroxide [Milk of 2,400 mg PO DAILY PRN ml 11/16/22 11/20/22 Rx Magnesia Concentrate] Propranolol LA [Inderal LA] 60 mg PO DAILY PRN 30 Days #30 cap 11/16/22 11/20/22 Rx hydrOXYzine pamoate [Vistaril] 25 mg PO Q8HR PRN cap 11/16/22 11/20/22 Rx Allergies Allergy/AdvReac Type Severity Reaction Status Date / Time No Known Allergies Allergy Verified 11/21/22 05:10 Physical Exam Vitals: Vital Signs Temp Pulse Resp BP Pulse Ox 11/22/22 06:44 98.0 F 72 16 123/60 98 Intake and Output 11/22/22 11/22/22 11/22/22 06:59 14:59 22:59 Other: Weight 96.4 kg Cranial Nerve Examination - Cranial Nerves Cranial Nerve II- Optic: Intact Cranial Nerve III- Oculomotor: Intact Cranial Nerve IV- Trochlear: Intact Cranial Nerve V- Trigeminal: Intact Cranial Nerve - Abducens: Intact Cranial Nerve VII- Facial: Intact Cranial Nerve VIII- Auditory: Intact Cranial Nerve IX- Glossopharyngeal: Intact Cranial Nerve X- Vagus: Intact Cranial Nerve XI- Accessory: Intact Cranial Nerve XII- Hypoglossal: Intact Results Labs: Abnormal Lab Results - Last 24 Hours (Table) 11/22/22 Range/Units 07:36 POC Glucose (mg/dL) 132 H (70-110) mg/dL <Stephen Guevara - Last Filed: 11/23/22 16:52> History of Present Illness I reviewed the documentation as provided by the ELE above, who is the original author of this note. I agree with the documented assessment and plan, with the following changes: none Physical Exam Vitals: Vital Signs Temp Pulse Resp BP Pulse Ox 11/23/22 09:59 121 H 184/65 11/23/22 06:51 97.8 F 77 16 128/65 97
[2022-11-22] MEDS: hydrOXYzine pamoate 25 MG CAP PO PRN (17:39)
[2022-11-22] MEDS: QUEtiapine 25 MG TAB PO SCH ×2 (17:40→21:13)
[2022-11-22] MEDS: LINAGLIPTIN 5 MG TABLET PO SCH (21:11)
[2022-11-22] MEDS: diphenhydrAMINE 25 MG CAP PO PRN (21:12)
--- NOTE | 2022-11-22 23:23 | P.HP ---
Psychiatric H&P - . H&P Date: 11/21/22 History & Physical: IDENTIFYING DATA: Patient is a 77 year old male with depression and anxiety who lives with his . HPI: Patient presented to the hospital on 11/20/22 with his . Per ER notes: 77-year-old male presents to the emergency department with for suicidal ideation. Patient states that he wanted to "get in the car, pay the toll for the bridge and jump off it." He states that he was recently admitted for suicidal ideation and plan. He states that he has been having suicidal at ideation since he is been discharged from the hospital. He states that he was lying to get help last time but states "this time I am serious." On my assessment, patient presents as disheveled, hair unkempt and unshaven, dressed in casual attire. He is hard of hearing and wearing his hearing aids. He reports he has been struggling at home because he "can't relax, can't settle down, can't enjoy life". He reports medication compliance, feels like his current medications make him "all geared up" and can't relax. He is not able to list his medications, reports his handles the medications for him and he just takes them. He asks that I call his for a list of his meds and his past med trials. He reports he has been hitting his head repeatedly. Patient reports suicidal thoughts of wanting to jump off a bridge. He denies homicidal ideation, intent or plan. At this time, patient denies any auditory or visual hallucinations. Patient denies any flight of ideas racing thoughts and increased in goal directed behavior. Patient denies any drug, alcohol or tobacco use and this was confirmed by his . We spoke with his over the phone with patient's permission and with patient in the room, who reports patient's current medications are Propranolol, Hydroxyzine, Lexapro. He has been tried on several medications in the past year, but he apparently did the best on Prozac which she took for several years from 1612-0272. PAST PSYCHIATRIC HISTORY: Patient has been diagnosed with MDD. Paat psychiatric medications: Lexapro, Vistaril, Inderal LA, Invega, Prozac (worked well from [id number]), Remeron, Buspar, Xanax (Mar-June 2022), Cymbalta, Ativan, Klonopin, Zoloft, Propranolol, Abilify. Past psychiatric hospitalizations: At least four times, [facility] [place] 1999, 2015, 11/09/2022 Past psychiatric outpatient follow-up: Dr. Acevedo, Dr. Pineda in the past until he [place] out of state; now follows with Dr. Villanueva Past suicide attempts: None prior to when he went to the bridge to contemplate jumping off PMH: Past Medical History: Diabetes Mellitus, Hypertension Additional Past Medical History / Comment(s): Hard of hearing - hearing aids bilateral History of Any Multi-Drug Resistant Organisms: None Reported Past Surgical History: Orthopedic Surgery Additional Past Surgical History / Comment(s): Bilateral knee replacement. Right foot. Right shoulder. Past Anesthesia/Blood Transfusion Reactions: No Reported Reaction Past Psychological History: Anxiety, Depression Smoking Status: Never smoker ALLERGIES: as per EMR CHEMICAL DEPENDENCY HISTORY: as per HPI FAMILY PSYCHIATRIC/SUBSTANCE USE HISTORY: The patient reports that his mother and sister were alcoholics, and likely had depression and anxiety as well. SOCIAL HISTORY: Patient was born in [place] and raised [place]" including [place], [place]. He had a strained relationship with his father. He has been to his Jeimy for 50 years. They have 2 children, 5 grandchildren, and 2 great-grandchildren. 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 He completed up to the ninth grade and dropped out because of being teased due to family problems. He is Pentecostal. He denies any service. He reports no legal issues. He currently lives with his . MENTAL STATUS EXAM: General Appearance: Patient appears to be stated age, presents as disheveled, hair unkempt and unshaven, dressed in casual attire. Behavior: Patient is seated without any agitated behavior, but becomes animated due to frustration. Speech: Patient's speech is fluent and non-pressured. Talks loudly due to hard of hearing. Mood/Affect: Patient reports their mood is depressed, affect is congruent and constricted. Suicidality/Homicidality: Patient denies having any homicidal ideation intent or plan. Denies any suicidal ideation, intent or plan. Perceptions: Patient denies any visual hallucinations and denies any auditory hallucinations. Though content/process: There is no evidence of any delusional thought content and thought process is linear and goal-directed. Memory and concentration: Alert and oriented to person, place, Wednesday then corrects himself to November 21 2002. Can spell "WORLD" backwards. Judgment and insight: poor STRENGTHS/WEAKNESSES: Strength is that patient has good support in his . Weakness is that patient has poor judgment and can be impulsive. INTELLECT: Average. He was given the PETR questionaire and did well on or ientation, naming, abstraction, copying, clock drawing. He struggled with trail making, spelling, immediate memory, simple math. He has a 9th grade education and reports he has struggles with reading, spelling and math since his school days. IMPRESSIONS: Major depressive disorder, recurrent severe Unspecified anxiety disorder Mild cognitive impairment PLAN: -Patient is admitted under voluntary status to MHU for stabilization of psychiatric symptoms and safety. Patient has signed adult voluntary form and medication consent and is placed in patient's chart. -Medications: Will start patient on Prozac 20 mg daily for depression/anxiety with plan to gradually increase as tolerated. Discontinue Lexapro, propranolol and Hydroxyzine due to lack of perceived benefit. Discussed the risks of benzodiazepines in the elderly with patient and his (he has recently been on Klonopin, Ativan and Xanax in recent years and had falls according to ) including risk of falls and memory impairment and they expressed understanding. -Ativan and Haldol PRN for agitation/aggression -Patient was informed of the risks, benefits and side effects of the medication and patient verbally consented to taking the medications. Patient signed med consent form and was placed in chart. -Internal Medicine consult to perform medical evaluation and physical. -NRT - not needed since patient does not smoke -SW on board for discharge planning. Encourage patient to participate in groups to work on coping skills. Allergies Allergy/AdvReac Type Severity Reaction Status Date / Time No Known Allergies Allergy Verified 11/21/22 05:10 Vital Signs Temp 97.7 F 11/21/22 03:33 Pulse 70 11/21/22 03:33 Resp 18 11/21/22 03:33 BP 112/57 11/21/22 03:33 Pulse Ox 97 11/21/22 03:33 FiO2 Intake & Output 11/20/22 11/21/22 11/21/22 18:59 06:59 18:59 Weight 96.8 kg Laboratory Last Values POC Glucose (mg/dL) 116 mg/dL (70-110) H 11/21/22 07:52 POC Glu Wire Frame Dipper ID Lolis Austin 11/21/22 07:52 Urine Color Yellow 11/20/22 22:26 Urine Appearance Clear (Clear) 11/20/22 22:26 Urine pH 5.5 (5.0-8.0) 11/20/22 22:26 Ur Specific [place] 1.019 (1.001-1.035) 11/20/22 22:26 Urine Protein Negative (Negative) 11/20/22 22:26 Urine Glucose (UA) Negative (Negative) 11/20/22 22:26 Urine Ketones Trace (Negative) H 11/20/22 22:26 Urine Blood Negative (Negative) 11/20/22 22:26 Urine Nitrite Negative (Negative) 11/20/22 22:26 Urine Bilirubin Negative (Negative) 11/20/22 22:26 Urine Urobilinogen <2.0 mg/dL (<2.0) 11/20/22 22:26 Ur Leukocyte Esterase Negative (Negative) 11/20/22 22:26 Coronavirus (PCR) Not Detected (Not Detectd) 11/21/22 00:12 11/21/22 13:43 11/21/22 16:08 11/21/22 16:29 11/21/22 16:37 11/22/22 23:02
--- NOTE | 2022-11-22 23:28 | P.PN ---
Progress Note - Text Progress Note Date: 11/22/22 Interval history: Patient was seen playing cards with peers in the [facility] and was directable and agreeable to speak with keno writer/runner. He appears anxious and becomes distressed and animated, endorses anxiety and depression, states he feels anxious and this gives him suicidal thoughts like he wants to jump off the bridge. He asks for a "sedative" to help calm him down however we had discussed the risks of benzos in the elderly yesterday and again today. We discussed a trial of a low-dose Seroquel and he expressed agreement. At this time patient denies homicidal ideation, intent or plan. Denies any auditory or visual hallucinations. Patient denies any side effects from the medications and has been compliant with meds. Mental status exam: General Appearance: Patient appears to be stated age, hygiene modestly improved, dressed in casual attire. Behavior: No agitated behavior, but becomes animated due to frustration/anxiety. Speech: Patient's speech is fluent and non-pressured. Talks loudly due to hard of hearing. Mood/Affect: Patient reports their mood is very anxious, affect is congruent and constricted. Suicidality/Homicidality: Patient denies having any homicidal ideation intent or plan. Denies any suicidal ideation, intent or plan. Perceptions: Patient denies any visual hallucinations and denies any auditory hallucinations. Though content/process: There is no evidence of any delusional thought content and thought process is catastrophic. Memory and concentration: Alert and oriented to person, place, time. Judgment and insight: poor Assessment/Plan: Continue with current diagnosis. Patient continues to meet criteria for inpatient psychiatric admission for symptom stabilization and safety. Continue Prozac 20 mg daily for depression/anxiety with plan to increase as tolerated. Start Seroquel 12.5 mg BID for mood stabilization. Monitor for medication compliance and for any psychotropic medication side effects. Will continue to monitor ongoing response to treatment. Encouraged participation in milieu.
[2022-11-23 07:43] LABS: Glucose,Whole Blood 103 mg/dL (70-110)
[2022-11-23] MEDS: QUEtiapine 25 MG TAB PO SCH ×2 (08:17→20:53)
[2022-11-23] MEDS: FLUoxetine HCL 20 MG CAP PO SCH (08:19)
[2022-11-23] MEDS: PIOGLITAZONE 30 MG TAB PO SCH (08:19)
[2022-11-23] MEDS: glipiZIDE 10 MG TAB PO SCH ×2 (08:19→20:53)
[2022-11-23] MEDS: metFORMIN 500 MG TAB PO SCH ×2 (08:19→20:53)
[2022-11-23] MEDS: hydrOXYzine pamoate 25 MG CAP PO PRN (09:57)
[2022-11-23] MEDS ORDERED: clonazePAM 0.5 MG TAB PO STA (10:29)
--- NOTE | 2022-11-23 12:27 | P.PN ---
Progress Note - Text Progress Note Date: 11/23/22 Interval History: Patient was seen wandering the hallways and was directable and agreeable to speak with brief writer in the office. Currently, the patient reports that he has elevated anxiety and panic. He rates his anxiety 9 out of 10 in severity with 10 being very severe. He reports to this provider "if this does not get better, my car has a date with the bridge." He reports that he is suicidal if things do not get better. He reports no homicidal ideation, intention, and/or plan. He reports excessive feelings of guilt and that he is letting his family down. He states that he has very poor appetite. He has been adherent with his medications but is upset that he is feeling no significant improvement. We engaged in mentalizaiotn techniques and relaxation exercises. Mental Status Exam: General Appearance: Patient appears to be stated age is alert, directable, and cooperative. Behavior: Patient is calmly seated without any agitated behavior. Patient becomes animated due to elevated frustration and anxiety. At one point, he slaps himself in the head. Speech: Patient's speech is fluent and nonpressured. Mood/Affect: Mood is "very anxious." Affect is dysphoric. Suicidality/Homicidality: Patient endorses suicidal ideation however denies any homicidal ideation. Perceptions: Patient denies any visual hallucinations and denies any auditory hallucinations Though content/process: Dysphoric thought process. Catastrophic. Memory and concentration: AOX3, grossly intact for the purposes of this session Judgment and insight: Poor Vital Signs Temp 97.8 F 11/23/22 06:51 Pulse 121 H 11/23/22 09:59 Resp 16 11/23/22 06:51 BP 184/65 11/23/22 09:59 Pulse Ox 97 11/23/22 06:51 FiO2 Intake & Output 11/22/22 11/23/22 11/23/22 18:59 06:59 18:59 Weight 96.4 kg Laboratory Results POC Glucose (mg/dL) 103 mg/dL (70-110) 11/23/22 07:42 POC Glu Pie Cutter ID 11/23/22 07:42 Urine Color Yellow 11/20/22 22:26 Urine Appearance Clear (Clear) 11/20/22 22:26 Urine pH 5.5 (5.0-8.0) 11/20/22 22: Ur Specific [place] 1.019 (1.001-1.035) 11/20/22 22:26 Urine Protein Negative (Negative) 11/20/22 22: Urine Glucose (UA) Negative (Negative) 11/20/22 22: Urine Ketones Trace (Negative) H 11/20/22 22:26 Urine Blood Negative (Negative) 11/20/22 22: Urine Nitrite Negative (Negative) 11/20/22 22: Urine Bilirubin Negative (Negative) 11/20/22 22: Urine Urobilinogen <2.0 mg/dL (<2.0) 11/20/22 22: Ur Leukocyte Esterase Negative (Negative) 11/20/22 22: Coronavirus (PCR) Not Detected (Not Detectd) 11/21/22 00:12 Assessment Major depressive disorder, recurrent, severe Panic disorder without agoraphobia Plan: -Patient continues to meet criteria for inpatient psychiatric admission for symptom stabilization and safety. Patient has signed adult voluntary form and medication consent and was placed in patient's chart. -Medications: Increase Prozac to 30 mg by mouth daily for depression/anxiety/panic Continue Seroquel 12.5 mg by mouth twice a day for mood augmentation Discussed with the patient the addition of Klonopin however the patient expresses concern for falls and therefore does not wish to start Klonopin at this time. -When necessary Vistaril for agitation/aggression. -SW on board for discharge planning. Encouraged the patient to participate in milieu.
[2022-11-23] MEDS: clonazePAM 0.5 MG TAB PO SCH (20:53)
[2022-11-23] MEDS: LINAGLIPTIN 5 MG TABLET PO SCH (20:53)
[2022-11-24 07:52] LABS: Glucose,Whole Blood 87 mg/dL (70-110)
[2022-11-24] MEDS: clonazePAM 0.5 MG TAB PO SCH ×2 (08:18→21:06)
[2022-11-24] MEDS: metFORMIN 500 MG TAB PO SCH ×2 (08:18→21:06)
[2022-11-24] MEDS: QUEtiapine 25 MG TAB PO SCH ×2 (08:19→21:06)
[2022-11-24] MEDS: glipiZIDE 10 MG TAB PO SCH ×2 (08:19→21:06)
[2022-11-24] MEDS: FLUoxetine HCL 10 MG CAP PO SCH (08:19)
[2022-11-24] MEDS: PIOGLITAZONE 30 MG TAB PO SCH (08:19)
--- NOTE | 2022-11-24 12:06 | P.PN ---
Progress Note - Text Progress Note Date: 11/24/22 Interval History: Patient was seen wandering the hallways and was directable and agreeable to speak with process description writer in the office. The patient reports that he is feeling "just tired today." He reports his depression and anxiety to be 8 out of 10 in severity with 10 being very severe. He has however not endorsing any suicidal or homicidal ideation, intention, and/or plan today. He does report generalized feelings of anhedonia and states that he has "nothing to look forward to." He reports that his appetite continues to be poor. He states that his sleep has improved. He reports that his anxiety has improved overall. He does express sedation as a side effect of his medications. He otherwise denies any chest pain, shortness breath, palpitations, or any other medical issues or concerns. Mental Status Exam: General Appearance: Patient appears to be stated age is alert, directable, and cooperative. Behavior: Patient is calmly seated without any agitated behavior. Eye contact is appropriate. Speech: Patient's speech is fluent and nonpressured. Mood/Affect: Mood is "just depressed." Affect is withdrawn and constricted. Suicidality/Homicidality: Patient does not endorse any suicidal or homicidal ideation today. Perceptions: Patient denies any visual hallucinations and denies any auditory hallucinations Though content/process: Dysphoric thought process. Memory and concentration: AOX3, grossly intact for the purposes of this session Judgment and insight: Poor Vital Signs Temp 97.8 F 11/23/22 06:51 Pulse 121 H 11/23/22 09:59 Resp 16 11/23/22 06:51 BP 184/65 11/23/22 09:59 Pulse Ox 97 11/23/22 06:51 FiO2 Laboratory Results - Last 24 Hours 11/24/22 07:51 POC Glucose (mg/dL) 87 POC Glu Riveting Machine Operator ID Deedee Villalobos Assessment Major depressive disorder, recurrent, severe Panic disorder without agoraphobia Plan: -Patient continues to meet criteria for inpatient psychiatric admission for symptom stabilization and safety. Patient has signed adult voluntary form and medication consent and was placed in patient's chart. -Medications: Continue Prozac 30 mg by mouth daily for depression/anxiety/panic Change Seroquel to 25 mg by mouth at bedtime due to concerns for oversedation. Continue Klonopin 0.25 mg by mouth twice a day for anxiety -As per discussion with the patient, we will obtain EKG tomorrow. -When necessary Vistaril for agitation/aggression. -SW on board for discharge planning. Encouraged the patient to participate in milieu.
[2022-11-24] MEDS: hydrOXYzine pamoate 25 MG CAP PO PRN (12:51)
[2022-11-24] MEDS ORDERED: clonazePAM 0.5 MG TAB PO STA (16:50)
[2022-11-24] MEDS: LINAGLIPTIN 5 MG TABLET PO SCH (21:06)
[2022-11-25 07:55] LABS: Glucose,Whole Blood 110 mg/dL (70-110)
[2022-11-25] MEDS: PIOGLITAZONE 30 MG TAB PO SCH (09:59)
[2022-11-25] MEDS: glipiZIDE 10 MG TAB PO SCH ×2 (10:00→19:40)
[2022-11-25] MEDS: FLUoxetine HCL 10 MG CAP PO SCH (10:00)
[2022-11-25] MEDS: metFORMIN 500 MG TAB PO SCH ×2 (10:00→19:40)
[2022-11-25] MEDS: clonazePAM 0.5 MG TAB PO SCH ×2 (10:01→19:41)
--- NOTE | 2022-11-25 12:06 | P.PN ---
Progress Note - Text Progress Note Date: 11/25/22 Interval History: Patient was seen wandering the hallways and was directable and agreeable to speak with principal technical writer in the office. The patient continues to report significant feelings of depression. He asked this provider "when am I going to get better?" He does report his depression to be 9 out of 10 in severity with 10 being severe. He does admit isolating to himself in his room. He states that he was experiencing suicidal thoughts last night. The patient reports a mildly improved appetite otherwise. He states that his anxiety has improved 4 out of 10 in severity with 10 being severe. He denies any auditory or visual hallucinations. He reports no paranoia or other delusions. He has been adherent with his medications and is not endorsing any significant side effects. Mental Status Exam: General Appearance: Patient appears to be stated age is alert, directable, and cooperative. Behavior: Patient is calmly seated without any agitated behavior. Eye contact is appropriate. Speech: Patient's speech is fluent and nonpressured. Mood/Affect: Mood is "very depressed." Affect is withdrawn and constricted. Suicidality/Homicidality: Patient reports suicidal ideation however denies any homicidal ideation. Perceptions: Patient denies any visual hallucinations and denies any auditory hallucinations Though content/process: Dysphoric thought process. Memory and concentration: AOX3, grossly intact for the purposes of this session Judgment and insight: Poor Vital Signs Temp 97.8 F 11/23/22 06:51 Pulse 118 H 11/24/22 16:57 Resp 16 11/23/22 06:51 BP 162/66 11/24/22 16:57 Pulse Ox 97 11/23/22 06:51 FiO2 Laboratory Results - Last 24 Hours 11/25/22 07:53 POC Glucose (mg/dL) 110 POC Glu Business Technology Teacher ID Silvia Miller Assessment Major depressive disorder, recurrent, severe Panic disorder without agoraphobia Plan: -Patient continues to meet criteria for inpatient psychiatric admission for symptom stabilization and safety. Patient has signed adult voluntary form and medication consent and was placed in patient's chart. -Medications: Increase Prozac to 40 mg by mouth daily for depression/anxiety/panic Change Seroquel to 25 mg by mouth at bedtime due to concerns for oversedation. Continue Klonopin 0.25 mg by mouth twice a day for anxiety -Will look at pursuing pace program for this patient. We will schedule family meeting this week. -When necessary Vistaril for agitation/aggression. -SW on board for discharge planning. Encouraged the patient to participate in milieu.
[2022-11-25] MEDS: hydrOXYzine pamoate 25 MG CAP PO PRN (13:09)
[2022-11-25] MEDS: diphenhydrAMINE 25 MG CAP PO PRN (19:40)
[2022-11-25] MEDS: QUEtiapine 25 MG TAB PO SCH (19:40)
[2022-11-25] MEDS: LINAGLIPTIN 5 MG TABLET PO SCH (19:40)
[2022-11-26 07:41] LABS: Glucose,Whole Blood 105 mg/dL (70-110)
[2022-11-26] MEDS: metFORMIN 500 MG TAB PO SCH ×2 (09:31→20:45)
--- NOTE | 2022-11-26 09:31 | P.PN ---
Progress Note - Text Progress Note Date: 11/26/22 Interval History: Patient was seen wandering the hallways and was directable and agreeable to speak with telegraphic typewriter installer in the office. The patient continues to report significant feelings of depression and states that his mood can be "up or down". He claims that he was feeling hopeless today. We spoke about the adjustment of his medications which is okay with the continue. He states that he was experiencing suicidal thoughts last night however did report mild improvement in sleep, fair appetite today. He denies any auditory or visual hallucinations. He reports no paranoia or other delusions. He has been adherent with his medications and is not endorsing any significant side effects. Mental Status Exam: General Appearance: Patient appears to be stated age is alert, directable, and cooperative. wearing street clothes Behavior: Patient is calmly seated without any agitated behavior. Eye contact is appropriate. Speech: Patient's speech is fluent and nonpressured. monotone Mood/Affect: Mood is "depressed." Affect is withdrawn and constricted. Suicidality/Homicidality: Patient reports suicidal ideation however denies any homicidal ideation. Perceptions: Patient denies any visual hallucinations and denies any auditory hallucinations Though content/process: Dysphoric thought process. Memory and concentration: AOX3, grossly intact for the purposes of this session Judgment and insight: Poor, improving midlly Assessment Major depressive disorder, recurrent, severe Panic disorder without agoraphobia Plan: -Patient continues to meet criteria for inpatient psychiatric admission for symptom stabilization and safety. Patient has signed adult voluntary form and medication consent and was placed in patient's chart. -Medications: continue Prozac 40 mg by mouth daily for depression/anxiety/panic continue Seroquel 25 mg by mouth at bedtime for mood adjunct/insomnia. Continue Klonopin 0.25 mg by mouth twice a day for anxiety -Will look at pursuing pace program for this patient. We will schedule family meeting this week. -When necessary Vistaril for agitation/aggression. -SW on board for discharge planning. Encouraged the patient to participate in milieu.
[2022-11-26] MEDS: clonazePAM 0.5 MG TAB PO SCH ×2 (09:32→20:45)
[2022-11-26] MEDS: PIOGLITAZONE 30 MG TAB PO SCH (09:32)
[2022-11-26] MEDS: FLUoxetine HCL 20 MG CAP PO SCH (09:32)
[2022-11-26] MEDS: glipiZIDE 10 MG TAB PO SCH ×2 (09:32→20:45)
[2022-11-26] MEDS: hydrOXYzine pamoate 25 MG CAP PO PRN ×2 (10:56→19:06)
[2022-11-26] MEDS: QUEtiapine 25 MG TAB PO SCH (20:45)
[2022-11-26] MEDS: LINAGLIPTIN 5 MG TABLET PO SCH (20:46)
[2022-11-27 07:59] LABS: Glucose,Whole Blood 103 mg/dL (70-110)
[2022-11-27] MEDS: PIOGLITAZONE 30 MG TAB PO SCH (09:30)
[2022-11-27] MEDS: FLUoxetine HCL 20 MG CAP PO SCH (09:30)
[2022-11-27] MEDS: clonazePAM 0.5 MG TAB PO SCH ×2 (09:30→22:23)
[2022-11-27] MEDS: metFORMIN 500 MG TAB PO SCH ×2 (09:30→22:23)
[2022-11-27] MEDS: glipiZIDE 10 MG TAB PO SCH ×2 (09:31→22:23)
--- NOTE | 2022-11-27 09:55 | P.PN ---
Progress Note - Text Progress Note Date: 11/27/22 Interval History: Patient was seen wandering the hallways and was directable and agreeable to speak with policy writer in the office. Currently, the patient reports he feels suicidal "when I get depressed." He states he has "waves of depression" throughout the day. He rates his depression currently 7/10 in severity with 10 being severe. He rates his anxiety 8/10 in severity but states that the klonopin controls his anxiety well. He constantly asks this provider, "Why am I like this?" He was provided with psychoeducation on depression/anxiety. This provider also provided him with a worksheet for behavioral activation as staff note he does improve when engaged in activity therapy. Mental Status Exam: General Appearance: Patient appears to be stated age is alert, directable, and cooperative. Unkempt facial hair today. Behavior: Patient is calmly seated without any agitated behavior. Eye contact is appropriate. Speech: Patient's speech is fluent and nonpressured. Mood/Affect: Mood is "nervous and depressed." Affect is withdrawn and constricted. Suicidality/Homicidality: Patient reports suicidal ideation however denies any homicidal ideation. Perceptions: Patient denies any visual hallucinations and denies any auditory hallucinations Though content/process: Dysphoric thought process. Memory and concentration: AOX3, grossly intact for the purposes of this session Judgment and insight: Poor Vital Signs Temp 98 F 11/27/22 06:58 Pulse 72 11/27/22 06:58 Resp 16 11/27/22 06:58 BP 114/56 11/27/22 06:58 Pulse Ox 96 11/26/22 06:54 FiO2 Laboratory Results - Last 24 Hours 11/27/22 07:57 POC Glucose (mg/dL) 103 POC Glu Hat Lacer ID Demarcus Newman Assessment Major depressive disorder, recurrent, severe Panic disorder without agoraphobia Plan: -Patient continues to meet criteria for inpatient psychiatric admission for symptom stabilization and safety. Patient has signed adult voluntary form and medication consent and was placed in patient's chart. -Family meeting scheduled for wednesday with patient's . We will also work on outpatient services. -Medications: Increase Prozac to 60 mg by mouth daily for depression/anxiety/panic Continue Seroquel 25 mg by mouth at bedtime due to concerns for oversedation. Continue Klonopin 0.25 mg by mouth twice a day for anxiety -Will look at pursuing pace program for this patient. We will schedule family meeting this week. -When necessary Vistaril for agitation/aggression. -SW on board for discharge planning. Encouraged the patient to participate in milieu.
[2022-11-27] MEDS: hydrOXYzine pamoate 25 MG CAP PO PRN (12:00)
[2022-11-27] MEDS: QUEtiapine 25 MG TAB PO SCH (22:23)
[2022-11-27] MEDS: LINAGLIPTIN 5 MG TABLET PO SCH (22:23)
[2022-11-28 08:16] LABS: Glucose,Whole Blood 105 mg/dL (70-110)
[2022-11-28] MEDS: clonazePAM 0.5 MG TAB PO SCH ×2 (08:16→21:19)
[2022-11-28] MEDS: PIOGLITAZONE 30 MG TAB PO SCH (08:18)
[2022-11-28] MEDS: metFORMIN 500 MG TAB PO SCH ×2 (08:18→21:19)
[2022-11-28] MEDS: FLUoxetine HCL 20 MG CAP PO SCH (08:18)
[2022-11-28] MEDS: glipiZIDE 10 MG TAB PO SCH ×2 (08:18→21:19)
--- NOTE | 2022-11-28 13:22 | P.PN ---
Progress Note - Text Progress Note Date: 11/28/22 Interval History: Patient was seen wandering the hallways and was directable and agreeable to speak bedside. He stated that he felt his "nerves tense up" which causes him to worry for his health, resulting in hospitalization. He reports continuing to experience low mood and anxiety although he says that it has improved. He says he slept well last night and denies concerns with this. He denies experiencing panic attack today. Patient is quite fixated on medications and is rather dismissive of coping skills and behavioral activation. He denies homicidal ideation, auditory and visual hallucinations. Mental Status Exam: General Appearance: Patient appears to be stated age is alert, directable, and cooperative. Some improvement in hygiene Behavior: Patient is calmly seated without any agitated behavior. Eye contact is appropriate. Speech: Patient's speech is fluent and nonpressured. Mood/Affect: Mood is "nervous" Affect is withdrawn and constricted. Suicidality/Homicidality: Patient reports suicidal ideation however denies any homicidal ideation. Perceptions: Patient denies any visual hallucinations and denies any auditory hallucinations Though content/process: Dysphoric thought process. Memory and concentration: AOX3, grossly intact for the purposes of this session Judgment and insight: Poor Assessment Major depressive disorder, recurrent, severe Panic disorder without agoraphobia Plan: -Patient continues to meet criteria for inpatient psychiatric admission for symptom stabilization and safety. Patient has signed adult voluntary form and medication consent and was placed in patient's chart. -Family meeting scheduled for wednesday with patient's . We will also work on outpatient services. -Medications: Continue Prozac 60 mg by mouth daily for depression/anxiety/panic Continue Seroquel 25 mg by mouth at bedtime due to concerns for oversedation. Continue Klonopin 0.25 mg by mouth twice a day for anxiety -Will look at pursuing pace program for this patient. We will schedule family meeting this week. -When necessary Vistaril for agitation/aggression. -SW on board for discharge planning. Encouraged the patient to participate in milieu.
[2022-11-28] MEDS: hydrOXYzine pamoate 25 MG CAP PO PRN ×2 (13:31→23:30)
[2022-11-28] MEDS: LINAGLIPTIN 5 MG TABLET PO SCH (21:19)
[2022-11-28] MEDS: QUEtiapine 25 MG TAB PO SCH (21:19)
[2022-11-28] MEDS: diphenhydrAMINE 25 MG CAP PO PRN (23:30)
[2022-11-29 07:52] LABS: Glucose,Whole Blood 78 mg/dL (70-110)
[2022-11-29] MEDS: clonazePAM 0.5 MG TAB PO SCH ×2 (10:03→22:21)
[2022-11-29] MEDS: glipiZIDE 10 MG TAB PO SCH ×2 (10:04→22:21)
[2022-11-29] MEDS: metFORMIN 500 MG TAB PO SCH ×2 (10:05→22:21)
[2022-11-29] MEDS: FLUoxetine HCL 20 MG CAP PO SCH (10:05)
[2022-11-29] MEDS: PIOGLITAZONE 30 MG TAB PO SCH (10:05)
--- NOTE | 2022-11-29 13:15 | P.PN ---
Progress Note - Text Progress Note Date: 11/29/22 Interval History: Patient was seen wandering the hallways and was directable and agreeable to ayla duarte in the interview room. He states that he is feeling "depressed" today and initially said he was not sure why. He was asking for this provider to identify reasons for his depressive and anxious moods. Patient continues quite fixated on medications and symptoms and is rather dismissive of coping skills and behavioral activation. This provider discussed ABCs of CBT with this patient at length today. During that discussion, patient states that he is anxious about being in the hospital because he worries that he cannot have a relaxed retired life with his . He also states that he worries about her dying. Finally, patient states that his energy levels fluctuate and when they are low, he reports feeling more depressed. Patient was encouraged to identify further thoughts when he experiences negative emotion during the daytime and to write them down on the handout provided. Patient believes that going to the crisis center is therapy. However, this provider discussed with him that this is different from engaging in active outpatient psychotherapy. Patient states that he had some trouble sleeping last night but that Vistaril 25 mg when necessary was helpful for the sleep. He was agreeable with scheduling this medication. He is noted to be more engaged on the unit and was participating in groups. He denies homicidal ideation, auditory and visual hallucinations. Mental Status Exam: General Appearance: Patient appears to be stated age is alert, directable, and cooperative. Some improvement in hygiene Behavior: Patient is calmly seated without any agitated behavior. Eye contact is appropriate. Speech: Patient's speech is fluent and nonpressured. Mood/Affect: Mood is "depressed" Affect is withdrawn and constricted. Suicidality/Homicidality: Patient reports suicidal ideation however denies any homicidal ideation. Perceptions: Patient denies any visual hallucinations and denies any auditory hallucinations Though content/process: Dysphoric thought process. Memory and concentration: AOX3, grossly intact for the purposes of this session Judgment and insight: Poor Assessment Major depressive disorder, recurrent, severe Panic disorder without agoraphobia Plan: -Patient continues to meet criteria for inpatient psychiatric admission for symptom stabilization and safety. Patient has signed adult voluntary form and medication consent and was placed in patient's chart. -Family meeting scheduled for wednesday with patient's . We will also work on outpatient services. -Medications: Continue Prozac 60 mg by mouth daily for depression/anxiety/panic Continue Seroquel 25 mg by mouth at bedtime due to concerns for oversedation. Continue Klonopin 0.25 mg by mouth twice a day for anxiety Vistaril 25 mg qHS for sleep - ABCs of CBT - encouraged to complete during daytime today and go over with provider tomorrow -Will look at pursuing pace program for this patient. -When necessary Vistaril for agitation/aggression. -SW on board for discharge planning. Encouraged the patient to participate in milieu. Strongly recommend outpatient psychotherapy -CBT
[2022-11-29] MEDS: hydrOXYzine pamoate 25 MG CAP PO PRN (15:50)
[2022-11-29] MEDS ORDERED: hydrOXYzine pamoate 25 MG CAP PO SCH (21:00)
[2022-11-29] MEDS: LINAGLIPTIN 5 MG TABLET PO SCH (22:21)
[2022-11-29] MEDS: QUEtiapine 25 MG TAB PO SCH (22:21)
[2022-11-29 22:28] LABS: Glucose,Whole Blood 163 mg/dL (70-110)
[2022-11-30 07:05] VITALS: BP 116/60; PULSE 75; TEMP 98
[2022-11-30 07:54] LABS: Glucose,Whole Blood 92 mg/dL (70-110)
[2022-11-30] MEDS: metFORMIN 500 MG TAB PO SCH (08:45)
[2022-11-30] MEDS: PIOGLITAZONE 30 MG TAB PO SCH (08:45)
[2022-11-30] MEDS: glipiZIDE 10 MG TAB PO SCH (08:45)
[2022-11-30] MEDS: FLUoxetine HCL 20 MG CAP PO SCH (08:45)
[2022-11-30] MEDS: clonazePAM 0.5 MG TAB PO SCH (08:47)
--- NOTE | 2022-11-30 12:54 | P.DS ---
Providers Date of admission: 11/21/22 02:44 Expected date of discharge: 11/30/22 Attending physician: Kojo Armenta MD Consults: 11/21/22 02:53 Consult Physician Routine Consulting Provider: Abebe Varela Consult Reason/Comments: H&P medical managment Do you want consulting provider notified?: Already Contacted Primary care physician: Francesco Lance - Discharge Diagnosis(es) (1) Panic disorder without agoraphobia Status: Acute Priority: High (2) Major depressive disorder, recurrent severe without psychotic features Status: Acute Priority: High Hospital Course: Admission HPI: Initial psychiatric evaluation was completed by Dr. Mascorro on 11/21/2022 who wrote: "Patient is a 77 year old male with depression and anxiety who lives with his . HPI: Patient presented to the hospital on 11/20/22 with his . Per ER notes: 77-year-old male presents to the emergency department with for suicidal ideation. Patient states that he wanted to "get in the car, pay the toll for the bridge and jump off it." He states that he was recently admitted for suicidal ideation and plan. He states that he has been having suicidal at ideation since he is been discharged from the hospital. He states that he was lying to get help last time but states "this time I am serious." On my assessment, patient presents as disheveled, hair unkempt and unshaven, dressed in casual attire. He is hard of hearing and wearing his hearing aids. He reports he has been struggling at home because he "can't relax, can't settle down, can't enjoy life". He reports medication compliance, feels like his current medications make him "all geared up" and can't relax. He is not able to list his medications, reports his handles the medications for him and he just takes them. He asks that I call his for a list of his meds and his past med trials. He reports he has been hitting his head repeatedly. Patient reports suicidal thoughts of wanting to jump off a bridge. He denies homicidal ideation, intent or plan. At this time, patient denies any auditory or visual hallucinations. Patient denies any flight of ideas racing thoughts and increased in goal directed behavior. Patient denies any drug, alcohol or tobacco use and this was confirmed by his . We spoke with his over the phone with patient's permission and with patient in the room, who reports patient's current medications are Propranolol, Hydroxyzine, Lexapro. He has been tried on several medications in the past year, but he apparently did the best on Prozac which she took for several years from [id number]. PAST PSYCHIATRIC HISTORY: Patient has been diagnosed with MDD. Paat psychiatric medications: Lexapro, Vistaril, Inderal LA, Invega, Prozac (worked well from [id number]), Remeron, Buspar, Xanax (Mar-June 2022), Cymbalta, Ativan, Klonopin, Zoloft, Propranolol, Abilify. Past psychiatric hospitalizations: At least four times, [facility] 1999, 2015, 11/09/2022 Past psychiatric outpatient follow-up: Dr. Acevedo, Dr. Pineda in the past until [place] out of state; now follows with Dr. Villanueva Past suicide attempts: None prior to when he went to the [facility] to contemplate jumping off" Hospital course: Upon admission to the unit patient was initially presenting as disheveled, unkempt, unshaven, frustrated, and depressed. Patient was however directable and agreeable to commence treatment. Patient got along well with other patients on the unit and followed unit protocol. Patient was compliant with the medications and denied any side effects throughout hospital course. Patient was started on Prozac for depression/anxiety and his previous regimen of Lexapro, propranolol, and Vistaril were discontinued. Patient spoke of his stressors and engaged in therapy both group and individual. Patient was also seen by medical team for history and physical exam. Throughout the patient's hospitalization, the patient's Prozac was titrated and he was started on Seroquel to augment his medications. The patient participated in both individual and milieu therapies. We engaged in behavioral activation and CBT. Patient was also set up with [facility] to provide more expansive outpatient services. On the day of discharge, the patient is not reporting any suicidal or homicidal ideation, intention, and/or plan. He reports no access to firearms or other weapons. He reports no side effects of his medication and has been in adherent. He reports no auditory or visual hallucinations. He denies any paranoia or other delusions. He does not have a significant history substance abuse however was counseled on abstaining from all substances including tobacco, alcohol, marijuana, and illicit drugs. He was counseled at length on the importance of medication adherence and appropriate outpatient follow-up. He was encouraged to follow-up with his outpatient appointments and engage in both individual and group therapies. He is also encouraged to participate in behavioral activation. Appropriate safety planning did occur including a family meeting. As the patient no longer met criteria for continued inpatient psychiatric auscultation, he was subsequently discharge. Mental status exam: General Appearance: Patient appears to be stated age is alert, pleasant, and cooperative. Patient is in no acute distress and has fair hygiene and grooming Behavior: Patient is calmly seated without any agitated behavior. Speech: Patient's speech is fluent and nonpressured. Mood/Affect: Patient reports their mood is "much better", affect is congruent and euthymic. Suicidality/Homicidality: Patient denies having any suicidal or homicidal ideation intent or plan. Perceptions: Patient denies any auditory or visual hallucinations. Though content/process: There is no evidence of any delusional thought content and thought process is linear and goal-directed. more future oriented Memory and concentration: AOX3, grossly intact for the purposes of this session. Can spell "WORLD" backwards correctly. Judgment and insight: Improved with guarded prognosis Impression: Major depressive disorder, recurrent, severe Panic disorder without agoraphobia Plan: -Continue with discharge today as patient has improved and stabilized psychiatrically and is not currently an imminent threat to himself and/or others. Patient will remain at chronically elevated risk due to severity of his mental illness -Continue medications: Continue Prozac 60 mg by mouth daily for depression/anxiety/panic Continue Seroquel 25 mg by mouth at bedtime due to concerns for oversedation. Continue Klonopin 0.25 mg by mouth twice a day for anxiety -Patient was counseled on the need for medication compliance and appropriate follow-up at mental health and also primary care for medical issues. Patient verbalized understanding and agreed. -Social work to arrange for and conduct family meeting to ensure safety upon discharge and answer any questions/concerns. Social work also to arrange for patients follow up appointments with [facility] along with follow up with primary care provider. -Patient counseled on abstaining from recreational drugs and marijuana and alco hol. Was informed/educated on the adverse effects on their physical and mental health. Patient verbally agreed and understood. -Patient was instructed to return to the hospital or seek immediate medical care if their psychiatric or medical symptoms do worsen or reoccur. -Psychoeducation and supportive therapy provided to patient. Risks and benefits of pharmacological treatment versus the risks and benefits of nontreatment weight and discussed. Informed consent discussion held. Common side effects of psychotropics discussed such as, but not limited to headache, GI disturbance, sexual dysfunction, movement disorders, sedation, and orthostatic hypotension. Life threatening and blackbox warnings of prescribed medications also discussed. Potential risks of operating a vehicle or heavy machinery discussed with patient at length. Advised on importance of compliance and a reliable and responsible manner. Patient advised to review FDA consumer labeling of all medications prior to taking. Patient verbalized understanding of potential risks, and agrees with current treatment plan. Patient advised to medically contact physician/emergency personnel if any acute changes in condition occur. Vital Signs Temp 98 F 11/30/22 06:41 Pulse 75 11/30/22 06:41 Resp 16 11/30/22 06:41 BP 116/60 11/30/22 06:41 Pulse Ox 93 L 11/30/22 06:41 FiO2 Laboratory Results POC Glucose (mg/dL) 92 mg/dL (70-110) 11/30/22 07:53 POC Glu Clinic Receptionist ID 11/30/22 07:53 Urine Color Yellow 11/20/22 22:26 Urine Appearance Clear (Clear) 11/20/22 22:26 Urine pH 5.5 (5.0-8.0) 11/20/22 22:26 Ur Specific [place] 1.019 (1.001-1.035) 11/20/22 22:26 Urine Protein Negative (Negative) 11/20/22 22:26 Urine Glucose (UA) Negative (Negative) 11/20/22 22: Urine Ketones Trace (Negative) H 11/20/22 22:26 Urine Blood Negative (Negative) 11/20/22 22:26 Urine Nitrite Negative (Negative) 11/20/22 22: Urine Bilirubin Negative (Negative) 11/20/22 22:26 Urine Urobilinogen <2.0 mg/dL (<2.0) 11/20/22 22:26 Ur Leukocyte Esterase Negative (Negative) 11/20/22 22:26 Coronavirus (PCR) Not Detected (Not Detectd) 11/21/22 00:12 Allergies Allergy/AdvReac Type Severity Reaction Status Date / Time No Known Allergies Allergy Verified 11/21/22 05:10 Patient Condition at Discharge: Stable Plan - Discharge Summary Discharge Rx Participant: Yes New Discharge Prescriptions: New clonazePAM [KlonoPIN] 0.25 mg PO BID 30 Days #60 tab QUEtiapine [SEROquel] 25 mg PO HS 30 Days #30 tab FLUoxetine HCL [PROzac] 60 mg PO DAILY 30 Days #90 cap Continue metFORMIN HCL [Glucophage] 1,000 mg PO BID sitaGLIPtin [Januvia] 100 mg PO HS Pioglitazone [Actos] 30 mg PO DAILY glipiZIDE [Glucotrol] 10 mg PO BID Discontinued Mag Hydrox/Al Hydrox/Simeth [Maalox] 30 ml PO Q4HR PRN ml PRN Reason: Gi Upset Acetaminophen Tab [Tylenol] 650 mg PO Q4HR PRN tab PRN Reason: Pain/Discomfort Escitalopram [Lexapro] 10 mg PO DAILY 30 Days #30 tab Albuterol Inhaler [Ventolin Hfa Inhaler] 1 - 2 puff INHALATION RT-Q6H PRN PRN Reason: Shortness Of Breath Magnesium Hydroxide [Milk of Magnesia Concentrate] 2,400 mg PO DAILY PRN ml PRN Reason: Constipation hydrOXYzine pamoate [Vistaril] 25 mg PO Q8HR PRN cap PRN Reason: Anxiety Propranolol LA [Inderal LA] 60 mg PO DAILY PRN 30 Days #30 cap PRN Reason: Anxiety Discharge Medication List Pioglitazone [Actos] 30 mg PO DAILY 05/21/16 [History] metFORMIN HCL [Glucophage] 1,000 mg PO BID 05/21/16 [History] sitaGLIPtin [Januvia] 100 mg PO HS 05/21/16 [History] glipiZIDE [Glucotrol] 10 mg PO BID 11/09/22 [History] FLUoxetine HCL [PROzac] 60 mg PO DAILY 30 Days #90 cap 11/30/22 [Rx] QUEtiapine [SEROquel] 25 mg PO HS 30 Days #30 tab 11/30/22 [Rx] clonazePAM [KlonoPIN] 0.25 mg PO BID 30 Days #60 tab 11/30/22 [Rx] Follow up Appointment(s)/Referral(s): Francesco Lance MD [Primary Care Provider] - 1-2 days [facility] [NON-STAFF] - 12/04/22 10:00 am ( 12/04/2022 10:00AM - 11:00AM [facility]AL[facility] Outpatient Services Scheduled 12/10/2022 3:00PM - 4:00PM [facility] ) Patient Instructions/Handouts: Panic Disorder (DC), Depression in Older Adults (DC) Activity/Diet/Wound Care/Special Instructions: Avoid the use of street drugs and alcohol. Take all medications as prescribed. When you are in need of refills on your medications, please contact your medical provider and/or outpatient psychiatrist to have this done. Please go to scheduled outpatient appointments for aftercare treatment. If symptoms return or become worse, call the crisis line at and/or go to the nearest emergency room for evaluation. Discharge Disposition: HOME SELF-CARE
== END 2022-11-30 12:10 | disposition home or self-care (01) | DRG 885 ==
LOC: EC 21:28 → 3MHU 11-21 02:44
PROVIDERS: ADMIT Psychiatry & Neurology Psychiatry; ATTEND Psychiatry & Neurology Psychiatry
DX: F33.2 Major depressive disorder, recurrent severe without psychotic features (principal); R45.851 Suicidal ideations; I10 Essential (primary) hypertension; F41.0 Panic disorder [episodic paroxysmal anxiety]; E11.9 Type 2 diabetes mellitus without complications; H91.90 Unspecified hearing loss, unspecified ear; G31.84 Mild cognitive impairment of uncertain or unknown etiology; F41.9 Anxiety disorder, unspecified; Z20.822 Contact with and (suspected) exposure to COVID-19; Z96.653 Presence of artificial knee joint, bilateral; Z79.899 Other long term (current) drug therapy; Z79.84 Long term (current) use of oral hypoglycemic drugs; Z63.9 Problem related to primary support group, unspecified
CPT/HCPCS: 81003; 82075; 87635; 99285

== ENCOUNTER → 2023-07-20 | Outpatient (CLI) | payer MEDICARE ==
--- NOTE | 2023-07-20 12:55 | XR ---
EXAMINATION TYPE: XR wrist limited LT DATE OF EXAM: 07/20/2023 COMPARISON: NONE HISTORY: 77-year-old male M2 5.532, left wrist pain TECHNIQUE: 2 views FINDINGS: Moderate to severe degenerative change first CMC and STT joints. Some vascular calcifications are pre sent. No acute fracture, subluxation, dislocation on these views. IMPRESSION: 2 views without acute osseous abnormality seen. 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
== END | disposition home or self-care (01) ==
LOC: RADXRMAIN 12:28
PROVIDERS: ATTEND Internal Medicine Hematology & Oncology
DX: M19.032 Primary osteoarthritis, left wrist (principal)

== ENCOUNTER → 2023-12-08 | Outpatient (CLI) | payer MEDICARE ==
[2023-12-08 16:18] LABS: Appearance,BF Blood Tinged; Color,BF Yellow; Nucleated Cells, Body Fluid 16 /uL; RBC, Body Fluid 145 /uL
== END | disposition home or self-care (01) ==
LOC: LABWHC1 12:24
PROVIDERS: ATTEND Orthopaedic Surgery
DX: M25.561 Pain in right knee (principal); T84.022D Instability of internal right knee prosthesis, subsequent encounter; E11.9 Type 2 diabetes mellitus without complications; M25.461 Effusion, right knee
CPT/HCPCS: 36415; 85379; 85652; 86140; 87070; 87075; 87205; 89050

== ENCOUNTER → 2024-05-19 | Outpatient (CLI) | payer MEDICARE ==
--- NOTE | 2024-05-20 12:33 | CA ---
Transthoracic Echo Report Name: Yossi Ibarra Age: 78 Gender: M : 1945 Exam Date: 05/19/2024 14:14 Exam Location: [facility] Ht (in): 71 Wt (lb): 231 Ordering Physician: Francesco Lance MD Attending/Referring Phys: Director Oracle Flro Lazo RDCS Procedure CPT: Indications: Z01.818 Chemo Cardiac Hx: Technical Quality: Technically difficult study Contrast 1: Definity Total Dose (mL): 2 Contrast 2: Total Dose (mL): MEASUREMENTS (Male / Female) Normal Values 2D ECHO LV Diastolic Diameter PLAX 4.5 cm 4.2 - 5.9 / 3.9 - 5.3 cm LV Systolic Diameter PLAX 3.1 cm IVS Diastolic Thickness 1.2 cm 0.6 - 1.0 / 0.6 - 0.9 cm LVPW Diastolic Thickness 1.1 cm 0.6 - 1.0 / 0.6 - 0.9 cm LV Relative Wall Thickness 0.5 LVOT Diameter 2.3 cm LV Diastolic Volume MOD BP 99.9 cm??? 67 - 155 / 56 - 104 cm??? LV Systolic Volume MOD BP 39.4 cm??? 22 - 58 / 19 - 49 cm??? LV Ejection Fraction MOD BP 60.5 % >= 55 % LV Cardiac Index MOD BP 2343.4 cm???/min???m??? LV Diastolic Volume MOD 4C 88.5 cm??? LV Systolic Volume MOD 4C 32.3 cm??? LV Ejection Fraction MOD 4C 63.5 % LV Cardiac Index MOD 4C 2178.9 cm???/min???m??? LV Diastolic Length 4C 8.6 cm LV Systolic Length 4C 6.1 cm LV Diastolic Volume MOD 2C 112.2 cm??? LV Systolic Volume MOD 2C 44.1 cm??? LV Ejection Fraction MOD 2C 60.7 % LV Cardiac Index MOD 2C 2641.4 cm???/min???m??? LV Diastolic Length 2C 8.7 cm LV Systolic Length 2C 6.7 cm LA Volume 45.1 cm??? 18 - 58 / 22 - 52 cm??? LA Volume Index 19.4 cm???/m??? 16 - 28 cm???/m??? Ascending Aorta Diameter 3.1 cm DOPPLER AV Peak Velocity 146.8 cm/s AV Peak Gradient 8.6 mmHg AV Mean Velocity 96.2 cm/s AV Mean Gradient 4.2 mmHg AV Velocity Time Integral 24.4 cm LVOT Peak Velocity 106.4 cm/s LVOT Peak Gradient 4.5 mmHg LVOT Velocity Time Integral 19.5 cm LVOT Stroke Volume 79.2 cm??? LVOT Stroke Volume Index 35.3 ml/m??? LVOT Cardiac Index 3071.7 cm???/min???m??? AV Area Cont Eq vti 3.2 cm??? AV Area Cont Eq pk 2.9 cm??? MV Area PHT 4.6 cm??? Mitral E Point Velocity 46.9 cm/s Mitral A Point Velocity 73.7 cm/s Mitral E to A Ratio 0.6 MV Deceleration Time 163.7 ms PV Peak Velocity 93.6 cm/s PV Peak Gradient 3.5 mmHg FINDINGS Left Ventricle Left ventricular ejection fraction is estimated at 60 %. Mildly increased septal wall thickness. Left ventricular cavity size normal. No obvious regional wall motion abnormalities. Right Ventricle Normal right ventricular size and function. Unable to estimate the right ventricular systolic pressure. Right Atrium Normal right atrial size. Left Atrium Normal left atrial size. Mitral Valve Structurally normal mitral valve. No mitral stenosis, regurgitation or prolapse. Aortic Valve Trileaflet aortic valve. No aortic valve stenosis or regurgitation. Tricuspid Valve Structurally normal tricuspid valve. No tricuspid stenosis. No tricuspid regurgitation. Pulmonic Valve Pulmonic valve not well visualized. No pulmonic stenosis. No pulmonic regurgitation. Pericardium No pericardial effusion. Aorta Normal size aortic root and proximal ascending aorta. CONCLUSIONS Indication: 2D echo for LV function assessment prior to chemotherapy Impression Preserved LV size and function ejection fraction 60% Preserved RV size and function Previewed by: Dr. Audi Lord MD (Electronically Signed) Final Date: 20 May 2024 12:32
== END | disposition home or self-care (01) ==
LOC: RADECHMAIN 13:54
PROVIDERS: ATTEND Internal Medicine Hematology & Oncology
DX: Z01.818 Encounter for other preprocedural examination (principal)
CPT/HCPCS: 93306